=== PATIENT | female | born 1960 | race Caucasian/White ===

== ENCOUNTER → 2019-03-20 17:30 | Outpatient (BNVA) | payer BC, SELFPAY | PROVIDERS: Family Provider Nurse Practitioner; PCP Nurse Practitioner; Visit Provider Nurse Practitioner Family | DX: R50.9 Fever, unspecified (principal); S81.801A Unspecified open wound, right lower leg, initial encounter; X58.XXXA Exposure to other specified factors, initial encounter; L03.115 Cellulitis of right lower limb; R14.0 Abdominal distension (gaseous); R19.7 Diarrhea, unspecified | CPT/HCPCS: 80053; 81003; 85025; 87070; 87077; 87186; 87205 ==

== ENCOUNTER → 2019-06-12 08:46 | Outpatient (BNVA) | payer BC, SELFPAY | PROVIDERS: Family Provider Nurse Practitioner; PCP Nurse Practitioner; Visit Provider Internal Medicine Rheumatology | DX: Z51.81 Encounter for therapeutic drug level monitoring (principal); Z79.52 Long term (current) use of systemic steroids; Z79.899 Other long term (current) drug therapy; M32.9 Systemic lupus erythematosus, unspecified; M19.90 Unspecified osteoarthritis, unspecified site | CPT/HCPCS: 85025 ==

== ENCOUNTER → 2019-06-12 10:29 | Outpatient (BNVA) | payer BC, SELFPAY | PROVIDERS: Family Provider Nurse Practitioner; PCP Nurse Practitioner; Visit Provider Internal Medicine Rheumatology | DX: M32.9 Systemic lupus erythematosus, unspecified (principal); Z79.899 Other long term (current) drug therapy; Z11.1 Encounter for screening for respiratory tuberculosis; Z79.52 Long term (current) use of systemic steroids; M19.90 Unspecified osteoarthritis, unspecified site | CPT/HCPCS: 36415; 80076; 82565; 82575; 84156; 85651; 86140; 86160; 86480 ==

== ENCOUNTER → 2019-09-25 10:09 | Outpatient (BNVA) | payer BC, SELFPAY | PROVIDERS: Family Provider Nurse Practitioner; PCP Nurse Practitioner; Visit Provider Internal Medicine | DX: M32.9 Systemic lupus erythematosus, unspecified (principal); F17.210 Nicotine dependence, cigarettes, uncomplicated; Z79.52 Long term (current) use of systemic steroids | CPT/HCPCS: 36415; 80053; 81003; 81401; 82550; 82955; 85025; 85651; 86140; 99213 ==

== ENCOUNTER → 2019-10-06 11:00 | Outpatient (BNVA) | payer BC, SELFPAY | PROVIDERS: Family Provider Nurse Practitioner; PCP Nurse Practitioner; Visit Provider Nurse Practitioner Family | DX: L03.115 Cellulitis of right lower limb (principal); I10 Essential (primary) hypertension; S60.512A Abrasion of left hand, initial encounter; I49.8 Other specified cardiac arrhythmias | CPT/HCPCS: 80053; 80061; 83735; 84443 ==

== ENCOUNTER → 2019-11-20 09:04 | Outpatient (BNVA) | payer BC, SELFPAY | PROVIDERS: Family Provider Nurse Practitioner; PCP Nurse Practitioner; Visit Provider Internal Medicine Rheumatology | DX: Z79.899 Other long term (current) drug therapy (principal); M60.9 Myositis, unspecified | CPT/HCPCS: 36415; 80053; 84100; 86704; 86803; 87340 ==

== ENCOUNTER 2020-01-12 09:12 | Outpatient (CLI) | payer BC, SELFPAY ==
--- NOTE | 2020-01-12 09:30 | US_ITS ---
WS: [id number] ABDOMINAL ULTRASOUND LIMITED REASON FOR VISIT: RUQ , abnormal lfts TECHNIQUE: Grayscale and Doppler ultrasound examination of the abdomen. FINDINGS: Pancreas: No pancreatic ductal dilatation. No calcifications or mass. Abdominal aorta and IVC: The abdominal aorta is normal caliber with no aneurysmal dilatation. The IVC is normal caliber without compression. Liver: Liver measures 12.7 cm in length. No focal lesion identified. There are some ill-defined areas with mildly increased echogenicity within the liver these findings suggest fatty infiltration of the liver. Gallbladder: Gallbladder wall thickness measures 0.1 mm. No gallbladder calculi and normal common maggie e duct. Right kidney: Right kidney measures 9.9 cm x 4.2 cm x 4.1 cm. No mass, hydronephrosis, or calculus. No free fluid. US/US abdomen limited [id number] IMPRESSION: Possible fatty infiltration of the liver. No other significant abnormality.
[2020-01-12 10:14] LABS: Basophils % 0.4 %; Eosinophils % 0.4 %; Hematocrit 46.2 % (37.0-47.0); Hemoglobin 15.1 g/dL (11.5-15.3); Lymphocytes # 2.5 10^3/uL (0.8-4.8); Lymphocytes % 25.8 %; Mean Corpuscular HGB Conc 32.7 g/dL (30.0-36.0); Mean Corpuscular Hemoglobin 35.1 pg (28.0-34.0); Mean Corpuscular Volume 107.4 fL (81-99); Mean Platelet Volume 8.8 fL (7.4-10.4); Monocytes # 0.7 10^3/uL (0.2-0.9); Monocytes % 6.7 %; Neutrophils # 6.46 10^3/uL (1.8-7.7); Neutrophils % 66.1 %; Nucleated Red Blood Cells % 0 %; Platelet Count 246 10^3/cmm (130-400); Red Cell Distribution Width 13.8 % (12.1-15.1); White Blood Count 9.8 10^3/uL (4.0-10.0)
[2020-01-12 10:34] LABS: Alanine Aminotransferase 23 U/L (0-33); Albumin Level 4.3 g/dL (3.5-5.2); Alkaline Phosphatase 111 IU/L (35-105); Anion Gap 13.9 (5-19); Aspartate Amino Transferase 30 U/L (0-32); Blood Urea Nitrogen 17 mg/dL (8-23); C Reactive Protein 1.9 mg/L (0.0-4.9); Carbon Dioxide 29 mmol/L (22-29); Chloride 101 mmol/L (98-107); Globulin 2.8 g/dL (1.3-4.6); Glomerular Filtration Rate 85.1 mL/min (90-130); Glucose 97 mg/dL (65-115); Osmolality Calculated 289 mOsm/kg (285-295); Potassium 4.9 mmol/L (3.5-5.1); Sodium 139 mmol/L (136-145); Total Bilirubin 0.4 mg/dL (0.15-1.2); Total Protein 7.1 g/dL (6.6-8.7)
[2020-01-12 11:00] LABS: Erythrocyte Sedimentation Rate 5 mm/hr (0-15)
== END 2020-01-12 09:13 | disposition home or self-care (01) ==
LOC: RAD 09:18
PROVIDERS: PCP Nurse Practitioner; Visit Provider Internal Medicine
DX: M60.9 Myositis, unspecified (principal); Z79.899 Other long term (current) drug therapy; R10.11 Right upper quadrant pain; K76.0 Fatty (change of) liver, not elsewhere classified
CPT/HCPCS: 36415; 76705; 80053; 85025; 85651; 86140

== ENCOUNTER → 2020-01-15 10:55 | Outpatient (BNVA) | payer BC, SELFPAY | PROVIDERS: Family Provider Nurse Practitioner; PCP Nurse Practitioner; Visit Provider Internal Medicine | DX: M32.9 Systemic lupus erythematosus, unspecified (principal); Z79.52 Long term (current) use of systemic steroids; M19.041 Primary osteoarthritis, right hand; M19.042 Primary osteoarthritis, left hand; F17.210 Nicotine dependence, cigarettes, uncomplicated; Z79.899 Other long term (current) drug therapy | CPT/HCPCS: 99213; 99214 ==

== ENCOUNTER → 2020-03-26 10:25 | Outpatient (BNVA) | payer BC, SELFPAY | PROVIDERS: Family Provider Nurse Practitioner; PCP Nurse Practitioner; Visit Provider Internal Medicine | DX: M06.9 Rheumatoid arthritis, unspecified (principal); M32.9 Systemic lupus erythematosus, unspecified; M19.041 Primary osteoarthritis, right hand; M19.042 Primary osteoarthritis, left hand; I10 Essential (primary) hypertension; F17.210 Nicotine dependence, cigarettes, uncomplicated | CPT/HCPCS: 36415; 80053; 81003; 82550; 84100; 85025; 86160; 99214 ==

== ENCOUNTER → 2020-06-26 14:52 | Outpatient (BNVA) | payer BC, SELFPAY | PROVIDERS: Family Provider Nurse Practitioner; PCP Nurse Practitioner; Visit Provider Internal Medicine | DX: M06.9 Rheumatoid arthritis, unspecified (principal); M32.9 Systemic lupus erythematosus, unspecified; Z79.52 Long term (current) use of systemic steroids; F17.210 Nicotine dependence, cigarettes, uncomplicated | CPT/HCPCS: 99213; 99214 ==

== ENCOUNTER → 2021-01-06 13:23 | Outpatient (BNVA) | payer MEDICARE, SELFPAY | PROVIDERS: Family Provider Nurse Practitioner; PCP Nurse Practitioner; Visit Provider Internal Medicine | DX: M06.9 Rheumatoid arthritis, unspecified (principal); M19.041 Primary osteoarthritis, right hand; M19.042 Primary osteoarthritis, left hand; R21 Rash and other nonspecific skin eruption; Z79.899 Other long term (current) drug therapy; F17.210 Nicotine dependence, cigarettes, uncomplicated; D89.9 Disorder involving the immune mechanism, unspecified; M62.82 Rhabdomyolysis; M25.50 Pain in unspecified joint; I10 Essential (primary) hypertension; Z79.52 Long term (current) use of systemic steroids; L40.9 Psoriasis, unspecified; I49.8 Other specified cardiac arrhythmias | CPT/HCPCS: 72040; 72202; 73080; 73120; 73620; 80053; 82550; 82728; 83540; 83735; 84100; 84443; 85025; 86140; 86160; 99214 ==

== ENCOUNTER 2021-01-06 15:03 | Outpatient (CLI) | payer MEDICARE, SELFPAY ==
--- NOTE | 2021-01-06 15:10 | XRR_ITS ---
PROCEDURE INFORMATION: Exam: XR Bilateral Sacroiliac Joints Exam date and time: 01/06/2021 3:10 PM Age: 60 years old Clinical indication: Condition or disease; Other: Psoriasis, unspecified; Additional info: L40.9 - psoriasis, unspecified TECHNIQUE: Imaging protocol: XR Bilateral XR of the sacroiliac joints. Views: 3 or more views. Total images: 3 COMPARISON: No relevant prior studies available. FINDINGS: Bones/joints: Mild irregularity noted along the iliac portion of the left SI joint is not confirmed on cone down views of the SI joints. No osseous erosions are detected on coned-down views. No acute fracture nor subluxation. No osseous erosion nor periosteal reaction. Soft tissues: Normal. Vasculature: Incidental phleboliths noted. XR/XR sacroiliac jts m 3V [id number] IMPRESSION: No acute osseous pathology. Radiation Dose CTDIVOL = (mGy): DLP = (mGy-cm)
--- NOTE | 2021-01-06 15:10 | XRR_ITS ---
PROCEDURE INFORMATION: Exam: XR Left Hand Exam date and time: 01/06/2021 3:10 PM Age: 60 years old Clinical indication: Condition or disease; Arthritis and other: Psoriasis; Osteoarthritis; Primary; Hand; Bilateral; Additional info: R21 - rash and other nonspecific skin eruption TECHNIQUE: Imaging protocol: XR Left hand. Views: 3 or more views. Total images: 2 COMPARISON: CR Hand 3 views, LEFT* [id number] 04/12/2018 12:35 PM FINDINGS: Bones/joints: Degenerative changes are seen in the 1st carpal metacarpal joint with joint space narrowing, mild sclerosis, and osteophyte formation. Mild osteophyte formation is present at the 1st metacarpal phalangeal joint. Osteophyte formation is seen at the interphalangeal joint of the thumb and 2nd through 5th distal interphalangeal joints. This is seen to a lesser extent along the medial aspect of the proximal interphalangeal joints of the 2nd through 4th digits. No acute fracture nor subluxation. No osseous erosion nor periosteal reaction. Soft tissues: Normal. XR/XR hand LT 2V [id number] IMPRESSION: Degenerative changes as described above but no acute pathology detected. Radiation Dose CTDIVOL = (mGy): DLP = (mGy-cm)
--- NOTE | 2021-01-06 15:10 | XRR_ITS ---
PROCEDURE INFORMATION: Exam: XR Left Foot Exam date and time: 01/06/2021 3:10 PM Age: 60 years old Clinical indication: Condition or disease; Other: Psoriasis; Additional info: M25.50 - pain in unspecified joint TECHNIQUE: Imaging protocol: XR Left foot. Views: 1 or 2 views. Total images: 2 COMPARISON: No relevant prior studies available. FINDINGS: Bones/joints: No acute fracture nor subluxation. No osseous erosion nor periosteal reaction. Soft tissues: Normal. XR/XR foot LT 2V [id number] IMPRESSION: No acute osseous pathology. Radiation Dose CTDIVOL = (mGy): DLP = (mGy-cm)
--- NOTE | 2021-01-06 15:10 | XRR_ITS ---
PROCEDURE INFORMATION: Exam: XR Cervical Spine Exam date and time: 01/06/2021 3:10 PM Age: 60 years old Clinical indication: Condition or disease; Other: Psoriasis; Additional info: R21 - rash and other nonspecific skin eruption TECHNIQUE: Imaging protocol: XR of the cervical spine. Views: 2 or 3 views. Total images: 3 COMPARISON: No relevant prior studies available. FINDINGS: Bones/joints: C2-C3 unilateral facet joint degenerative changes are present. C4-7 Degenerative disc disease with disc space narrowing and osteophyte formation. No acute fracture nor subluxation. No osseous erosion nor periosteal reaction. No evidence of dynamic instability with flexion and extension maneuvers. Soft tissues: Unremarkable. Other findings: Atlantodental articulation appears unremarkable. XR/XR cervical spine fl/ex [id number] IMPRESSION: 1. Atlantodental articulation appears unremarkable. 2. Degenerative changes as described above but no acute pathology detected. 3. No evidence of dynamic instability with flexion and extension maneuvers. Radiation Dose CTDIVOL = (mGy): DLP = (mGy-cm)
--- NOTE | 2021-01-06 15:10 | XRR_ITS ---
PROCEDURE INFORMATION: Exam: XR Right Foot Exam date and time: 01/06/2021 3:10 PM Age: 60 years old Clinical indication: Condition or disease; Other: Psoriasis; Additional info: M25.50 - pain in unspecified joint TECHNIQUE: Imaging protocol: XR Right foot. Views: 1 or 2 views. Total images: 2 COMPARISON: No relevant prior studies available. FINDINGS: Bones/joints: No acute fracture nor subluxation. No osseous erosion nor periosteal reaction. Soft tissues: Normal. XR/XR foot RT 2V [id number] IMPRESSION: No acute osseous pathology. Radiation Dose CTDIVOL = (mGy): DLP = (mGy-cm)
--- NOTE | 2021-01-06 15:10 | XRR_ITS ---
PROCEDURE INFORMATION: Exam: XR Left Elbow Exam date and time: 01/06/2021 3:10 PM Age: 60 years old Clinical indication: Condition or disease; Other: Psoriasis; Additional info: M19.041 - primary osteoarthritis, right hand TECHNIQUE: Imaging protocol: XR Left elbow. Views: 3 or more views. Total images: 3 COMPARISON: CR XR hand LT 2V [id number] 01/06/2021 3:23 PM FINDINGS: Bones/joints: Small enthesophyte projecting at triceps insertion site. Small enthesophyte projecting from the medial epicondyle. No acute fracture nor subluxation. No osseous erosion nor periosteal reaction. Soft tissues: Normal. XR/XR elbow LT min 3V* [id number] IMPRESSION: No acute osseous pathology. Radiation Dose CTDIVOL = (mGy): DLP = (mGy-cm)
--- NOTE | 2021-01-06 15:10 | XRR_ITS ---
PROCEDURE INFORMATION: Exam: XR Right Hand Exam date and time: 01/06/2021 3:10 PM Age: 60 years old Clinical indication: Condition or disease; Arthritis and other: Psoriasis; Osteoarthritis; Hand; Bilateral; Additional info: R21 - rash and other nonspecific skin eruption TECHNIQUE: Imaging protocol: XR Right hand. Views: 1 or 2 views. Total images: 2 COMPARISON: CR Hand 3 views, RIGHT* [id number] 04/12/2018 12:35 PM FINDINGS: Bones/joints: Deformity of the scaphoid suggests remote nonunion of proximal pole fracture. Narrowing of radiocarpal joint with mild marginal osteophyte unchanged. Degenerative changes at the lunate/capitate joint with joint space narrowing and sclerosis with mild dorsal tilting of lunate unchanged. Degenerative changes noted at the 1st metacarpal phalangeal joint unchanged. Mild asymmetrical narrowing of the 3rd metacarpal phalangeal joint unchanged. Minimal proximal interphalangeal joint narrowing and osteophyte formation of the 1st, 2nd, 3rd, and 4th digits. Minimal narrowing and osteophyte formation of the distal interphalangeal joint of the 2nd through 5th digits. Findings are unchanged from the prior exam. No osseous erosions detected. Soft tissues: Soft tissue swelling noted at the proximal interphalangeal joint and distal interphalangeal joint of the 2nd and 3rd digits. XR/XR hand RT 2V [id number] IMPRESSION: 1. Osteoarthritic changes of the hands unchanged from prior exam. 2. Remote ununited proximal pole right scaphoid fracture with associated dorsal intercalated segmental instability unchanged from prior exam. Radiation Dose CTDIVOL = (mGy): DLP = (mGy-cm)
[2021-01-06 17:24] LABS: Basophils # 0.1 10^3/uL (0.0-0.1); Basophils % 0.7 %; Eosinophils # 0.1 10^3/uL (0.0-0.8); Eosinophils % 0.7 %; Hematocrit 47.7 % (37.0-47.0); Hemoglobin 15.7 g/dL (11.5-15.3); Lymphocytes # 2.6 10^3/uL (0.8-4.8); Lymphocytes % 24.6 %; Mean Corpuscular HGB Conc 32.9 g/dL (30.0-36.0); Mean Corpuscular Volume 106.2 fl (81-99); Mean Platelet Volume 8.8 fL (7.4-10.4); Monocytes # 0.7 10^3/uL (0.2-0.9); Monocytes % 6.1 %; Neutrophils # 7.26 10^3/uL (1.8-7.7); Neutrophils % 67.7 %; Nucleated Red Blood Cells % 0 %; Platelet Count 260 10^3/cmm (130-400); Red Blood Count 4.49 10^6/uL (4.1-5.3); Red Cell Distribution Width 14.4 % (12.1-15.1); White Blood Count 10.7 10^3/uL (4.0-10.0)
[2021-01-06 18:25] LABS: Alanine Aminotransferase 18 U/L (0-33); Albumin Level 4.5 g/dL (3.5-5.2); Alkaline Phosphatase 108 IU/L (35-105); Anion Gap 15.5 (5-19); Aspartate Amino Transferase 24 U/L (0-32); Blood Urea Nitrogen 12 mg/dL (8-23); C Reactive Protein 0.5 mg/L (0.0-4.9); Calcium 9.7 mg/dL (8.5-10.5); Carbon Dioxide 28 mmol/L (22-29); Chloride 101 mmol/L (98-107); Creatine Phosphokinase 148 U/L (26-192); Ferritin 75 ng/mL (15-150); Globulin 3.1 g/dL (1.3-4.6); Glomerular Filtration Rate 63.4 mL/min (90-130); Glucose 122 mg/dL (65-115); Iron 134 ug/dL (37-145); Magnesium 1.9 mg/dL (1.7-2.3); Osmolality Calculated 291 mOsm/kg (285-295); Phosphorus 2.7 mg/dL (2.5-4.5); Potassium 4.5 mmol/L (3.5-5.1); Sodium 140 mmol/L (136-145); Thyroid Stimulating Hormone 0.71 uIU/mL (0.27-4.20); Total Bilirubin 0.5 mg/dL (0.15-1.2); Total Protein 7.6 g/dL (6.6-8.7)
[2021-01-06 22:20] LABS: Complement C3 119 mg/dL (90-180)
== END 2021-01-06 15:04 | disposition home or self-care (01) ==
LOC: RAD 15:07
PROVIDERS: PCP Nurse Practitioner; Visit Provider Internal Medicine
DX: D89.9 Disorder involving the immune mechanism, unspecified (principal); M06.9 Rheumatoid arthritis, unspecified; M19.041 Primary osteoarthritis, right hand; M19.042 Primary osteoarthritis, left hand; M62.82 Rhabdomyolysis; R21 Rash and other nonspecific skin eruption; M25.50 Pain in unspecified joint; I10 Essential (primary) hypertension; Z79.52 Long term (current) use of systemic steroids; L40.9 Psoriasis, unspecified; I49.8 Other specified cardiac arrhythmias
CPT/HCPCS: 72040; 72202; 73080; 73120; 73620; 80053; 82550; 82728; 83540; 83735; 84100; 84443; 85025; 86140; 86160

== ENCOUNTER → 2021-02-03 11:32 | Outpatient (BNVA) | payer MEDICARE, SELFPAY | PROVIDERS: PCP Nurse Practitioner; Visit Provider Internal Medicine | DX: M06.9 Rheumatoid arthritis, unspecified (principal); M54.2 Cervicalgia; M19.041 Primary osteoarthritis, right hand; M19.042 Primary osteoarthritis, left hand; Z79.899 Other long term (current) drug therapy; Z79.52 Long term (current) use of systemic steroids | CPT/HCPCS: 99214 ==

== ENCOUNTER → 2021-04-08 11:36 | Outpatient (BNVA) | payer MEDICARE, SELFPAY | PROVIDERS: PCP Nurse Practitioner Family; Visit Provider Nurse Practitioner Family | DX: E55.9 Vitamin D deficiency, unspecified (principal); I10 Essential (primary) hypertension; F17.210 Nicotine dependence, cigarettes, uncomplicated | CPT/HCPCS: 80053; 80061; 82306; 84443; 85025 ==

== ENCOUNTER → 2021-04-14 08:57 | Outpatient (BNVA) | payer MEDICARE, SELFPAY | PROVIDERS: PCP Nurse Practitioner Family; Visit Provider Internal Medicine | DX: M06.9 Rheumatoid arthritis, unspecified (principal); M32.9 Systemic lupus erythematosus, unspecified; Z79.52 Long term (current) use of systemic steroids; F17.210 Nicotine dependence, cigarettes, uncomplicated | CPT/HCPCS: 99214 ==

== ENCOUNTER → 2021-05-22 10:38 | Outpatient (BNVA) | payer MEDICARE, SELFPAY | PROVIDERS: PCP Nurse Practitioner Family; Visit Provider Internal Medicine Rheumatology | DX: M06.9 Rheumatoid arthritis, unspecified (principal); M32.9 Systemic lupus erythematosus, unspecified; E55.9 Vitamin D deficiency, unspecified | CPT/HCPCS: 80053; 81000; 82550; 85025; 85651; 86140; 86160 ==

== ENCOUNTER → 2021-05-29 00:01 | Outpatient (BNVA) | payer MEDICARE, SELFPAY | PROVIDERS: PCP Nurse Practitioner Family; Visit Provider Nurse Practitioner Family | DX: L02.419 Cutaneous abscess of limb, unspecified (principal); F17.210 Nicotine dependence, cigarettes, uncomplicated; Z68.1 Body mass index [BMI] 19.9 or less, adult | CPT/HCPCS: 87070; 87075; 87205 ==

== ENCOUNTER → 2021-06-11 08:56 | Outpatient (BNVA) | payer MEDICARE, SELFPAY | PROVIDERS: PCP Nurse Practitioner Family; Visit Provider Internal Medicine | DX: M06.9 Rheumatoid arthritis, unspecified (principal); M32.9 Systemic lupus erythematosus, unspecified; R21 Rash and other nonspecific skin eruption; Z79.899 Other long term (current) drug therapy; F17.210 Nicotine dependence, cigarettes, uncomplicated | CPT/HCPCS: 99214 ==

== ENCOUNTER → 2021-08-21 09:58 | Outpatient (BNVA) | payer MEDICARE, SELFPAY | PROVIDERS: PCP Nurse Practitioner Family; Visit Provider Internal Medicine | DX: M06.9 Rheumatoid arthritis, unspecified (principal); M32.9 Systemic lupus erythematosus, unspecified; M60.9 Myositis, unspecified; Z79.899 Other long term (current) drug therapy; E55.9 Vitamin D deficiency, unspecified | CPT/HCPCS: 80053; 81000; 82550; 85025; 85651; 86140; 86160 ==

== ENCOUNTER → 2021-09-17 08:42 | Outpatient (BNVA) | payer MEDICARE, SELFPAY | PROVIDERS: PCP Nurse Practitioner; Visit Provider Internal Medicine | DX: M06.9 Rheumatoid arthritis, unspecified (principal); M32.9 Systemic lupus erythematosus, unspecified | CPT/HCPCS: 99214 ==

== ENCOUNTER → 2021-10-14 13:21 | Outpatient (BNVA) | payer MEDICARE, SELFPAY | PROVIDERS: PCP Nurse Practitioner; Visit Provider Internal Medicine | DX: E55.9 Vitamin D deficiency, unspecified (principal); I10 Essential (primary) hypertension; Z79.52 Long term (current) use of systemic steroids; L30.9 Dermatitis, unspecified | CPT/HCPCS: 80053; 80061; 81000; 82306; 82550; 82607; 83721; 84443; 85025; 85651; 86036; 86140 ==

== ENCOUNTER → 2022-03-31 11:04 | Outpatient (BNVA) | payer MEDICARE, SELFPAY | PROVIDERS: PCP Nurse Practitioner; Visit Provider Internal Medicine | DX: M06.9 Rheumatoid arthritis, unspecified (principal); M19.041 Primary osteoarthritis, right hand; M19.042 Primary osteoarthritis, left hand; M32.9 Systemic lupus erythematosus, unspecified; R21 Rash and other nonspecific skin eruption | CPT/HCPCS: 80053; 81000; 82550; 85025; 85651; 86036; 86140 ==

== ENCOUNTER → 2022-04-02 11:18 | Outpatient (BNVA) | payer MEDICARE, SELFPAY | PROVIDERS: PCP Nurse Practitioner; Visit Provider Internal Medicine | DX: M06.349 Rheumatoid nodule, unspecified hand (principal); M06.9 Rheumatoid arthritis, unspecified; M62.82 Rhabdomyolysis; R21 Rash and other nonspecific skin eruption | CPT/HCPCS: 99214 ==

== ENCOUNTER → 2022-06-15 12:16 | Outpatient (BNVA) | payer MEDICARE, SELFPAY | PROVIDERS: PCP Nurse Practitioner; Visit Provider Internal Medicine | DX: M06.9 Rheumatoid arthritis, unspecified (principal); M32.9 Systemic lupus erythematosus, unspecified; R21 Rash and other nonspecific skin eruption; M54.2 Cervicalgia; M19.042 Primary osteoarthritis, left hand; M19.032 Primary osteoarthritis, left wrist; M19.031 Primary osteoarthritis, right wrist; Z79.52 Long term (current) use of systemic steroids | CPT/HCPCS: 72040; 73100; 73110; 73120; 99214 ==

== ENCOUNTER → 2022-08-27 11:40 | Outpatient (BNVA) | payer MEDICARE, SELFPAY | PROVIDERS: PCP Nurse Practitioner; Visit Provider Internal Medicine | DX: M32.9 Systemic lupus erythematosus, unspecified (principal) | CPT/HCPCS: 80053; 81003; 82550; 85025; 85651; 86140; 87077; 87086; 87184 ==

== ENCOUNTER → 2022-10-13 13:56 | Outpatient (BNVA) | payer MEDICARE, SELFPAY | PROVIDERS: PCP Nurse Practitioner; Visit Provider Dermatology | DX: I78.8 Other diseases of capillaries (principal) | CPT/HCPCS: 99214 ==

== ENCOUNTER → 2022-12-09 15:08 | Outpatient (BNVA) | payer MEDICARE, SELFPAY | PROVIDERS: PCP Nurse Practitioner; Visit Provider Internal Medicine | DX: E53.8 Deficiency of other specified B group vitamins (principal); M06.9 Rheumatoid arthritis, unspecified; M62.82 Rhabdomyolysis; R21 Rash and other nonspecific skin eruption; M54.2 Cervicalgia | CPT/HCPCS: 99214 ==

== ENCOUNTER → 2023-02-02 10:58 | Outpatient (BNVA) | payer MEDICARE, SELFPAY | PROVIDERS: PCP Nurse Practitioner; Visit Provider Anesthesiology Pain Medicine | DX: M54.12 Radiculopathy, cervical region (principal); M50.90 Cervical disc disorder, unspecified, unspecified cervical region; M54.50 Low back pain, unspecified | CPT/HCPCS: 99204 ==

== ENCOUNTER 2023-03-10 11:18 | Outpatient (CLI) | payer MEDICARE, SELFPAY ==
--- NOTE | 2023-03-10 11:00 | MR_ITS ---
WS: [id number] MRI CERVICAL SPINE NONCONTRAST TECHNIQUE: Sagittal T1, T2 and STIR imaging. Axial T2, gradient, and fiesta imaging. CLINICAL INFORMATION: M54.12 - Radiculopathy, cervical region COMPARISON: None. FINDINGS: Straightening of the normal cervical lordosis. Mild spondylitic changes. Cord signal is normal. Hyper trophic changes mid cervical spine. Small shallow disc protrusions C4-C6. C2-C3: Mild facet arthropathy. Spinal canal and foramen are patent. C3-C4: Disc osteophytic ridging. Moderate RIGHT bony foraminal narrowing. Mild facet arthropathy. C4-C5: Disc osteophyte complex with endplate ridging. Moderate facet arthropathy. Moderate bilateral bony foraminal narrowing. C5-C6: Disc osteophyte complex with endplate ridging. Moderate bilateral bony foraminal narrowing. Un covertebral joint hypertrophy. Moderate facet arthropathy. Tiny central protrusion. C6-C7: Disc osteophyte complex with endplate ridging. Moderate bilateral bony foraminal narrowing. Mo derate facet arthropathy. C7-T1: Mild RIGHT and no significant LEFT foraminal narrowing. Visualized brain stem structures: Normal. Prevertebral soft tissues: Normal. IMPRESSION: Some images degraded by motion. 1. Straightening of the normal cervical lordosis. Cord signal is normal. 2. Small disc protrusions in the mid cervical spine. No significant central canal stenosis. 3. Moderate multilevel bony foraminal narrowing worse at RIGHT C3-4, bilateral C4-5, bilateral C5-C6 and bilateral C6-7.
== END 2023-03-10 11:19 | disposition home or self-care (01) ==
LOC: RAD 11:19
PROVIDERS: PCP Nurse Practitioner; Visit Provider Anesthesiology Pain Medicine
DX: M54.12 Radiculopathy, cervical region (principal); M48.02 Spinal stenosis, cervical region
CPT/HCPCS: 72141

== ENCOUNTER → 2023-06-23 11:19 | Outpatient (BNVA) | payer MEDICARE, SELFPAY | PROVIDERS: PCP Nurse Practitioner; Visit Provider Anesthesiology Pain Medicine | DX: M54.12 Radiculopathy, cervical region (principal); M50.90 Cervical disc disorder, unspecified, unspecified cervical region; M48.02 Spinal stenosis, cervical region | CPT/HCPCS: 99214 ==

== ENCOUNTER 2024-02-04 12:51 | Emergency (ER) | payer MEDICARE, SELFPAY ==
[2024-02-04 13:08] VITALS: BP 114/78; PULSE 100; RESP 18; TEMP 36.3; O2SAT 91; BMI 19.5
--- NOTE | 2024-02-04 13:40 | XRR_ITS ---
PROCEDURE INFORMATION: Exam: XR Chest Exam date and time: 02/04/2024 1:44 PM Age: 63 years old Clinical indication: Shortness of breath; Patient HX: Dyspnea; SOB TECHNIQUE: Imaging protocol: Radiologic exam of the chest. Views: 1 view. COMPARISON: MR cervical spin wo con* [id number] 03/10/2023 11:49 AM FINDINGS: Lungs: Both lungs demonstrate diffuse interstitial coarsening. Platelike atelectasis involves both lower lung pena.Luz B lines are noted in both lung bases. Pleural spaces: Unremarkable. No pleural effusion. No pneumothorax. Heart/Mediastinum: Moderate cardiomegaly is noted. Bones/joints: Unremarkable. XR/XR chest 1V portable [id number] IMPRESSION: Mild CHF
[2024-02-04 13:57] LABS: Basophils # 0.1 10^3/uL (0.0-0.1); Basophils % 0.5 %; Eosinophils % 0.4 %; Hematocrit 49.7 % (36-47); Lymphocytes % 21.4 %; Mean Corpuscular HGB Conc 30.6 g/dL (30-55); Mean Corpuscular Volume 98.2 fl (85-98); Mean Platelet Volume 9.2 fL (7.4-10.4); Monocytes # 0.5 10^3/uL (0.2-0.9); Monocytes % 5.1 %; Neutrophils # 6.79 10^3/uL (1.8-7.7); Neutrophils % 72.4 %; Nucleated Red Blood Cells % 0 %; Platelet Count 219 10^3/cmm (157-399); Red Blood Count 5.06 10^6/uL (3.85-5.65); Red Cell Distribution Width 15.5 % (12.1-15.1); White Blood Count 9.39 10^3/uL (3.29-11.43)
[2024-02-04] MEDS: dexamethasone 10 mg/mL INJ IM (13:57)
--- NOTE | 2024-02-04 13:58 | ED_ITS ---
HPI - SOB/Dyspnea 2 General: Chief Complaint: Shortness of Breath/Dyspnea Stated Complaint: SOB Time Seen by Provider: 02/04/24 13:37 History of Present Illness: HPI Narrative: Patient presents to the ER with complaints of shortness of breath worse over the last week. Patient does have COPD and uses albuterol nebs and inhaler multiple times throughout the day. She said it used to work very good but now is only working for 5 or 10 minutes at a time. Patient is says she has had chills but not had a fever. She has a chronic coughPatient she does have a history of lupus and is on hydroxychloroquine. Patient is not had any sick contacts. Patient's O2 sat is 91% on room air. Related Data Home Medications Medication Instructions Recorded Confirmed aspirin 81 mg tablet,delayed 81 mg PO DAILY 02/04/24 02/04/24 release ibuprofen 200 mg tablet 200 mg PO Q6H PRN Pain 02/04/24 02/04/24 Previous Rx's Medication Instructions Recorded furosemide 40 mg tablet (Lasix) 40 mg PO DAILY #5 tabs 02/04/24 Allergies Allergy/AdvReac Type Severity Reaction Status Date / Time No Known Allergies Allergy Verified 02/04/24 13:14 Review of Systems 2 General: Reports: 10 or more systems reviewed and unremarkable except in HPI and below PFSH ED 2 PFSH: Medical History Suppression of immune system subtherapeutic Macrocytosis Immunization counseling Muscle weakness (generalized) Gastro-esophageal reflux disease without esophagitis Vitamin D deficiency High risk medication use Osteoarthritis Generalized anxiety disorder Chronic pruritus Colon cancer screening declined Systemic lupus erythematosus, unspecified 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, bilateral 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 Immunosuppression Systemic lupus erythematosus (SLE) in adult Surgical History History of ectopic Family History Mother , age 32 CAD (coronary artery disease) Family/Other Cancer Social History Smoking and tobacco/nicotine status: current every day tobacco/nicotine user cigarettes Packs smoked per day: 1 Years cigarettes smoked: 50 Second hand smoke exposure: No Alcohol intake: current Alcohol intake frequency: few times a week Substance/Drug Use: unknown Adopted: No Caregiver/support person: No Lives independently: Yes Household members: spouse Housing: House Marital status: Number of children: 3 Number of grandchildren: 7 service: No Current occupational status: disabled Previous occupational history: [employer] Do you think of yourself as: Straight/Heterosexual Current gender identity: Female Physical Exam 2 Const: COMMON NORMALS: no acute distress, average body habitus, patient oriented x3, no limitations, healthy appearing, alert and well nourished HENMT: COMMON NORMALS: normocephalic, atraumatic, hearing grossly normal bilaterally, external ears normal, Normal external nose present and moist oral mucous membranes HEAD & SCALP: normocephalic and atraumatic NOSE: Normal external nose present EXTERNAL EAR: Yes external ears normal Neck/C-Spine: COMMON NORMALS: no JVD Chest: COMMONS NORMALS: normal inspection of the chest and normal palpation of entire chest wall Resp: COMMON NORMALS: normal respiratory effort, No retractions, No use of accessory muscles and clear to auscultation bilaterally AUSCULTATION: clear to auscultation bilaterally Cardio: COMMON NORMALS: no JVD, regular rate, regular rhythm, S1 normal heart sound present, S2 normal heart sound present, No gallops present (Cardio), No clicks present (Cardio), No murmurs present (Cardio) and No rub (Cardio) R ATE: regular rate RHYTHM: regular rhythm HEART SOUNDS: S1 normal heart sound present and S2 normal heart sound present GI: COMMON NORMALS: Normal to inspection, nondistended, normoactive bowel sounds present, Soft to palpation, non-tender, No hepatosplenomegaly present and no masses PALPATION: Yes Soft to palpation and Yes No hepatosplenomegaly present Neuro: COMMON NORMALS: patient oriented x3 SENSORIUM/ORIENTATION: Yes alert Course 2 Vital Signs: Vital signs: Vital Signs Temperature 97.4 F L 02/04/24 13:08 Pulse Rate 103 H 02/04/24 14:06 Respiratory Rate 18 02/04/24 14:01 Blood Pressure 138/89 02/04/24 14:01 Pulse Oximetry 94 02/04/24 14:01 Oxygen Delivery Me thod Room Air 02/04/24 14:01 MDM - SOB/Dyspnea Medical Decision Making During patient stay her O2 saturation to about 92% on room air. Patient was given 1 DuoNeb treatment and 40 of p.o. Lasix. Patient lab work was reviewed her BNP is elevated at approximately 7300. Patient states she was feeling much better. Patient be discharged on Lasix for next 5 days. Medical Records I reviewed the patient's medical records. Lab Data I reviewed the patient's lab results. 02/04/24 13:52 02/04/24 13:52 Labs/Radiology: Radiology Impressions Chest X-Ray 02/04/24 13:40 IMPRESSION: Mild CHF Laboratory Results WBC 9.39 10^3/uL (3.29-11.43) 02/04/24 13:52 RBC 5.06 10^6/uL (3.85-5.65) 02/04/24 13:52 Hgb 15.20 g/dL (11.27-16.99) 02/04/24 13:52 Hct 49.7 % (36-47) H 02/04/24 13:52 MCV 98.2 fl (85-98) H 02/04/24 13:52 MCH 30.0 pg (27-33) 02/04/24 13:52 MCHC 30.6 g/dL (30-55) 02/04/24 13:52 RDW 15.5 % (12.1-15.1) H 02/04/24 13:52 Plt Count 219 10^3/cmm (157-399) 02/04/24 13:52 MPV 9.2 fL (7.4-10.4) 02/04/24 13:52 Neut % (Auto) 72.4 % 02/04/24 13:52 Lymph % (Auto) 21.4 % 02/04/24 13:52 [place] % (Auto) 5.1 % 02/04/24 13:52 Eos % (Auto) 0.4 % 02/04/24 13:52 Baso % (Auto) 0.5 % 02/04/24 13:52 Neut # (Auto) 6.79 10^3/uL (1.8-7.7) 02/04/24 13:52 Lymph # (Auto) 2.0 10^3/uL (0.8-4.8) 02/04/24 13:52 [place] # (Auto) 0.5 10^3/uL (0.2-0.9) 02/04/24 13:52 Eos # (Auto) 0.0 10^3/uL (0.0-0.8) 02/04/24 13:52 Baso # (Auto) 0.1 10^3/uL (0.0-0.1) 02/04/24 13:52 Nucleated RBC % (auto) 0 % 02/04/24 13:52 Nucleated RBCs # 0.0 /100WBC 02/04/24 13:52 Sodium 138 mmol/L (136-145) 02/04/24 13:52 Potassium 4.7 mmol/L (3.5-5.1) 02/04/24 13:52 Chloride 99 mmol/L (98-107) 02/04/24 13:52 Carbon Dioxide 25 mmol/L (22-29) 02/04/24 13:52 Anion Gap 18.7 (5-19) 02/04/24 13:52 BUN 13 mg/dL (8-23) 02/04/24 13:52 Creatinine 0.8 mg/dL (0.5-0.9) 02/04/24 13:52 GFR Calculation 72.0 mL/min (90-130) L 02/04/24 13:52 Glucose 142 mg/dL (65-115) H 02/04/24 13:52 Calculated Osmolality 289 mOsm/kg (285-295) 02/04/24 13:52 Calcium 9.1 mg/dL (8.5-10.5) 02/04/24 13:52 Total Bilirubin 0.9 mg/dL (0.15-1.2) 02/04/24 13:52 AST 25 U/L (0-32) 02/04/24 13:52 ALT 17 U/L (0-33) 02/04/24 13:52 Alkaline Phosphatase 123 U/L (35-105) H 02/04/24 13:52 NT-Pro-B Natriuret Pep 7337 pg/mL (0-125) H 02/04/24 13:52 Total Protein 6.9 g/dL (6.6-8.7) 02/04/24 13:52 Albumin 3.8 g/dL (3.5-5.2) 02/04/24 13:52 Globulin 3.1 g/dL (1.3-4.6) 02/04/24 13:52 Coronavirus (PCR) Negative (Negative) 02/04/24 13:59 Influenza A (PCR) Negative (Negative) 02/04/24 13:59 Influenza Type B (PCR) Negative (Negative) 02/04/24 13:59 RSV (PCR) Negative (Negative) 02/04/24 13:59 All radiology interpretation(s) finalized by discharge Discharge Plan Discharge Patient Disposition: Home Clinical Impression: Acute dyspnea, Edema Condition: Stable Prescriptions: New furosemide [Lasix] 40 mg tablet 40 mg PO DAILY Qty: 5 0RF No Action aspirin [Aspir-81] 81 mg Tablet,Delayed Release (Dr/Ec) 81 mg PO DAILY ibuprofen 200 mg Tablet 200 mg PO Q6H PRN (Reason: Pain) Discharge Orders: Discharge ED (Routine); Ordered 02/04/24 Ordered By: Herman Weaver Referrals: Albino Mcdaniel, SENIOR PROGRAMMER-C [Primary Care Provider] - 1 week Patient Instructions: Dyspnea (ED), Pulmonary Edema (ED) Activity Restrictions/Additional Instructions: Your evaluation ER showed you have a little bit too much fluid in your lungs. You will prescribe Lasix which is a diuretic to help you get rid of this fluid. Please take it as directed for the next 5 days. Please follow-up with family proximal physician in approximately 7 days for further evaluation. Coding Level of Care Code ED Electronic Data Interchange Specialist for Tito Lam
[2024-02-04 14:01] VITALS: BP 138/89; PULSE 101; PULSE 98; RESP 18; O2SAT 92; O2SAT 94
[2024-02-04] MEDS: ipratropium-albuterol 3 mL Neb INHALATION (14:01)
[2024-02-04 14:06] VITALS: PULSE 103
--- NOTE | 2024-02-04 14:15 | PC.PHAR ---
patient states she isnt current with any medications, does take otc aspirin and ibuprofen as needed.. patients primary doctor left awhile back and so did her pain management doc so since then shes tried to find new pcp to write her normal meds
[2024-02-04 14:25] LABS: Alanine Aminotransferase 17 U/L (0-33); Albumin Level 3.8 g/dL (3.5-5.2); Alkaline Phosphatase 123 U/L (35-105); Anion Gap 18.7 (5-19); Aspartate Amino Transferase 25 U/L (0-32); Blood Urea Nitrogen 13 mg/dL (8-23); Calcium 9.1 mg/dL (8.5-10.5); Carbon Dioxide 25 mmol/L (22-29); Chloride 99 mmol/L (98-107); Creatinine Clr Calc Pharmacy 61.7476; Globulin 3.1 g/dL (1.3-4.6); Glucose 142 mg/dL (65-115); NT Pro B Type Natriuretic Pept 7337 pg/mL (0-125); Osmolality Calculated 289 mOsm/kg (285-295); Potassium 4.7 mmol/L (3.5-5.1); Sodium 138 mmol/L (136-145); Total Bilirubin 0.9 mg/dL (0.15-1.2); Total Protein 6.9 g/dL (6.6-8.7)
[2024-02-04 14:49] LABS: Covid PCR NEGATIVE (Negative); Influenza A NEGATIVE (Negative); Influenza B NEGATIVE (Negative); Respiratory Syncytial Virus Ce NEGATIVE (Negative)
[2024-02-04] MEDS: FUROsemide 40 mg Tablet PO (14:53)
[2024-02-04 15:17] VITALS: BP 147/83; PULSE 89; O2SAT 93
[2024-02-04 15:18] VITALS: BP 147/80; PULSE 89; O2SAT 93
== END 2024-02-04 15:27 | disposition home or self-care (01) ==
PROVIDERS: Emergency Provider Emergency Medicine; PCP Nurse Practitioner
DX: R06.09 Other forms of dyspnea (principal); R60.9 Edema, unspecified; Z11.52 Encounter for screening for COVID-19; Z79.82 Long term (current) use of aspirin; F17.210 Nicotine dependence, cigarettes, uncomplicated; J44.9 Chronic obstructive pulmonary disease, unspecified
CPT/HCPCS: 0241U; 71045; 80053; 83880; 85025; 94640; 96372; 99284; J1100

== ENCOUNTER → 2024-02-10 14:44 | Outpatient (BNVA) | payer MEDICARE, SELFPAY | PROVIDERS: PCP Nurse Practitioner; Visit Provider Nurse Practitioner | DX: E55.9 Vitamin D deficiency, unspecified (principal); I50.9 Heart failure, unspecified; R73.9 Hyperglycemia, unspecified | CPT/HCPCS: 80048; 82306; 83036; 83880; 84443 ==

== ENCOUNTER 2024-04-01 15:40 | Emergency (ER) | payer MEDICARE, SELFPAY ==
[2024-04-01] VITALS (8 sets, daily range): BP systolic 96–143; BP diastolic 59–97; PULSE 93–109; RESP 16–101; TEMP 36.4; O2SAT 90–97; BMI 18.0
--- NOTE | 2024-04-01 15:56 | ECG_ITS ---
[facility] [place] [facility] Date: 2024-04[facility]01 Pat Name: Alivia Tomlinson Department: Room: Gender: Female Director Nurses' Registry: : 1960 Requested By: Giovanni Goncavles Order Number: [id number] Caroline MD: Bubba Bueno M.D. Measurements Intervals [place] Rate: 96 P: 88 WA: 181 QRS: 36 QRSD: 123 T: 180 QT: 385 QTc: 488 Interpretive Statements SINUS RHYTHM WITH FREQUENT SUPRAVENTRICULAR PREMATURE COMPLEXES POSSIBLE RIGHT VENTRICULAR CONDUCTION DELAY [RSR (QR) IN V1/V2] ANTEROSEPTAL MYOCARDIAL INFARCTION , OF INDETERMINATE AGE [40+ ms Q WAVE IN V1-V4] ST DEVIATION AND MODERATE T-WAVE ABNORMALITY, CONSIDER LATERAL ISCHEMIA [-0.1+ mV T-WAVE IN I/aVL/V5/V6] No previous ECG available for comparison Electronically Signed On 04-01-2024 22:56:42 INTELLECTUAL PROPERTY COUNSEL by Bubba Bueno M.D. [email or web address]
--- NOTE | 2024-04-01 16:30 | XRR_ITS ---
PROCEDURE INFORMATION: Exam: XR Chest Exam date and time: 04/01/2024 4:39 PM Age: 63 years old Clinical indication: Shortness of breath; Patient HX: SOB TECHNIQUE: Imaging protocol: Radiologic exam of the chest. Views: 1 view. COMPARISON: CR XR chest 1V portable [id number] 02/04/2024 1:44 PM FINDINGS: Lungs: Emphysematous change. No focal consolidation. Mild interstitial prominence. Pleural spaces: Focal nodularity of the right costophrenic angle is likely a nipple shadow. Heart/Mediastinum: Cardiomegaly. Vasculature: Tortuous calcified aorta. Bones/joints: Degenerative change of the spine and shoulders. XR/XR chest 1V portable [id number] IMPRESSION: No acute cardiopulmonary findings.
--- NOTE | 2024-04-01 16:40 | ED_ITS ---
HPI - SOB/Dyspnea 2 General: Chief Complaint: Shortness of Breath/Dyspnea Stated Complaint: SOB Time Seen by Provider: 04/01/24 16:29 Source: patient History of Present Illness: HPI Narrative: Patient is a 63-year-old female with a longtime history of smoking who reports having also history of congestive heart failure and presents to the ER with complaints of increasing shortness of breath and cough for the last several weeks. Her states she seems somewhat confused yesterday and has had subjective fevers. She does have an albuterol inhaler at home however has ran out of it. Associated symptoms: Deny abdominal pain, chest pain, diaphoresis, fever(s), nausea or vomiting Related Data Home Medications Medication Instructions Recorded Confirmed aspirin 81 mg tablet,delayed 81 mg PO DAILY 02/04/24 02/22/24 release ibuprofen 200 mg tablet 200 mg PO Q6H PRN Pain 02/04/24 02/10/24 Previous Rx's Medication Instructions Recorded furosemide 20 mg tablet (Lasix) 20 mg PO QAM #30 tabs 02/10/24 potassium chloride 8 mEq 8 meq PO DAILY #30 caps 02/10/24 capsule,extended release ergocalciferol (vitamin D2) 1,250 1,250 mcg PO .weekly #4 caps 02/13/24 mcg (50,000 unit) capsule oseltamivir 75 mg capsule (Tamiflu) 75 mg PO BID 5 days #10 caps 04/01/24 prednisone 20 mg tablet 20 mg PO BID 5 days #10 tabs 04/01/24 Allergies Allergy/AdvReac Type Severity Reaction Status Date / Time No Known Allergies Allergy Verified 04/01/24 15:55 Review of Systems 2 Const: Denies: fever(s), chills or diaphoresis Card: Denies: chest pain Resp: Reports: dyspnea, non-productive cough and wheezing GI: Denies: abdominal pain, nausea or vomiting Skin/Breast: Denies: rash Neuro: Denies: headache(s) PFSH ED 2 PFSH: Medical History Suppression of immune system subtherapeutic Macrocytosis Immunization counseling Muscle weakness (generalized) Gastro-esophageal reflux disease without esophagitis Vitamin D deficiency High risk medication use Osteoarthritis Generalized anxiety disorder Chronic pruritus Colon cancer screening declined Systemic lupus erythematosus, unspecified 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, bilateral 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 Immunosuppression Systemic lupus erythematosus (SLE) in adult Surgical History History of ectopic Family History Mother , age 32 CAD (coronary artery disease) Family/Other Cancer Social History Smoking and tobacco/nicotine status: current every day tobacco/nicotine user cigarettes Packs smoked per day: 1 Years cigarettes smoked: 50 Second hand smoke exposure: No Alcohol intake: current Alcohol intake frequency: few times a week Substance/Drug Use: unknown Adopted: No Caregiver/support person: No Lives independently: Yes Household members: spouse Housing: House Marital status: Number of children: 3 Number of grandchildren: 7 service: No Current occupational status: disabled Previous occupational history: [employer] Do you think of yourself as: Straight/Heterosexual Current gender identity: Female Physical Exam 2 Const: COMMON NORMALS: no acute distress, average body habitus, alert and well nourished GENERAL APPEARANCE: cooperative ORIENTATION/CONSCIOUSNESS: Yes awake HENMT: COMMON NORMALS: normocephalic and atraumatic HEAD & SCALP: n ormocephalic and atraumatic Eye: COMMON NORMALS: conjunctivae normal CONJUNCTIVA: Yes conjunctivae normal Neck/C-Spine: GENERAL: Yes normal visual inspection Resp: OTHER: Patient has mild tachypnea noted with diffuse wheezes bilaterally Cardio: COMMON NORMALS: regular rhythm and Peripheral pulses 2+ throughout RATE: tachycardic RHYTHM: regular rhythm PERIPHERAL PULSES: Peripheral pulses 2+ throughout GI: COMMON NORMALS: Soft to palpation and non-tender PALPATION: Yes Soft to palpation Extremity: COMMON NORMALS: full ROM and no pedal edema NARRATIVE EXTREMITY EXAM: No pedal edema Neuro: COMMON NORMALS: no focal motor deficits SENSORIUM/ORIENTATION: Yes alert Skin: COMMON NORMALS: no rashes or lesions noted GENERAL SKIN EXAM: no rashes or lesions noted Course 2 Vital Signs: Vital signs: Vital Signs Temperature 97.5 F L 04/01/24 15:50 Pulse Rate 109 H 04/01/24 18:24 Respiratory Rate 16 04/01/24 17:17 Blood Pressure 131/84 04/01/24 18:24 Pulse Oximetry 93 04/01/24 18:24 Oxygen Delivery Me thod Room Air 04/01/24 17:17 MDM - SOB/Dyspnea Medical Decision Making Patient is a 63-year-old female with long history of smoking as well as a history of congestive heart failure who presents with increasing cough and shortness of breath. She reports some fevers and the states she seems somewhat confused yesterday. She had diffuse wheezes bilaterally with coarse breath sounds on exam. Vital signs were stable. She is satting around 95 to 97% on room air. Chest x-ray does not show any acute infiltrate or pneumonia. CBC is unremarkable. Chemistry panel is unremarkable. Troponin is indeterminate and she does have an elevated BNP. Her influenza test was positive. She was given 3 DuoNebs here and a dose of Solu-Medrol. On reassessment she states she is feeling much better and diagnosis were discussed with the patient. Risk and benefits of admission were discussed and patient declines admission and prefers discharge home. I will prescribe her Tamiflu as well as short course of steroids as it does appear she is likely having some COPD exacerbation from her influenza illness. Patient was given strict return precautions. Lab Data I reviewed the patient's lab results. 04/01/24 16:54 04/01/24 16:54 Labs/Radiology: Radiology Impressions Chest X-Ray 04/01/24 16:30 IMPRESSION: No acute cardiopulmonary findings. Laboratory Results WBC 6.28 10^3/uL (3.29-11.43) 04/01/24 16:54 RBC 5.02 10^6/uL (3.85-5.65) 04/01/24 16:54 Hgb 14.30 g/dL (11.27-16.99) 04/01/24 16:54 Hct 45.6 % (36-47) 04/01/24 16:54 MCV 90.8 fl (85-98) 04/01/24 16:54 MCH 28.5 pg (27-33) 04/01/24 16:54 MCHC 31.4 g/dL (30-55) 04/01/24 16:54 RDW 16.2 % (12.1-15.1) H 04/01/24 16:54 Plt Count 161 10^3/cmm (157-399) 04/01/24 16:54 MPV 9.7 fL (7.4-10.4) 04/01/24 16:54 Neut % (Auto) 79.7 % 04/01/24 16:54 Lymph % (Auto) 11.5 % 04/01/24 16:54 [place] % (Auto) 7.8 % 04/01/24 16:54 Eos % (Auto) 0.2 % 04/01/24 16:54 Baso % (Auto) 0.5 % 04/01/24 16:54 Neut # (Auto) 5.01 10^3/uL (1.8-7.7) 04/01/24 16:54 Lymph # (Auto) 0.7 10^3/uL (0.8-4.8) L 04/01/24 16:54 [place] # (Auto) 0.5 10^3/uL (0.2-0.9) 04/01/24 16:54 Eos # (Auto) 0.0 10^3/uL (0.0-0.8) 04/01/24 16:54 Baso # (Auto) 0.0 10^3/uL (0.0-0.1) 04/01/24 16:54 Nucleated RBC % (auto) 0 % 04/01/24 16:54 Nucleated RBCs # 0.0 /100WBC 04/01/24 16:54 Sodium 135 mmol/L (136-145) L 04/01/24 16:54 Potassium 4.1 mmol/L (3.5-5.1) 04/01/24 16:54 Chloride 96 mmol/L (98-107) L 04/01/24 16:54 Carbon Dioxide 26 mmol/L (22-29) 04/01/24 16:54 Anion Gap 17.1 (5-19) 04/01/24 16:54 BUN 15 mg/dL (8-23) 04/01/24 16:54 Creatinine 0.8 mg/dL (0.5-0.9) 04/01/24 16:54 GFR Calculation 72.0 mL/min (90-130) L 04/01/24 16:54 Glucose 84 mg/dL (65-115) 04/01/24 16:54 Calculated Osmolality 280 mOsm/kg (285-295) L 04/01/24 16:54 Lactic Acid 2.4 mmol/L (0.5-2.2) H 04/01/24 16:54 Calcium 9.2 mg/dL (8.5-10.5) 04/01/24 16:54 Total Bilirubin 1.3 mg/dL (0.15-1.2) H 04/01/24 16:54 AST 30 U/L (0-32) 04/01/24 16:54 ALT 16 U/L (0-33) 04/01/24 16:54 Alkaline Phosphatase 119 U/L (35-105) H 04/01/24 16:54 Troponin T Baseline 73 ng/L (0-10) H 04/01/24 16:54 Delta Troponin T 1.50 ABS# (0-10) 04/01/24 18:56 NT-Pro-B Natriuret Pep 89444 pg/mL (0-125) H 04/01/24 16:54 Total Protein 6.8 g/dL (6.6-8.7) 04/01/24 16:54 Albumin 3.8 g/dL (3.5-5.2) 04/01/24 16:54 Globulin 3.0 g/dL (1.3-4.6) 04/01/24 16:54 Urine Color Yellow (Yellow) 04/01/24 16:45 Urine Appearance Clear (CLEAR) 04/01/24 16:45 Urine pH 5.0 (5-7) 04/01/24 16:45 Ur Specific [place] 1.005 (1.005-1.030) 04/01/24 16:45 Urine Protein Negative (Negative) 04/01/24 16:45 Urine Glucose (UA) Negative (Normal) 04/01/24 16:45 Urine Ketones Negative (Negative) 04/01/24 16:45 Urine Blood Negative (Negative) 04/01/24 16:45 Urine Nitrate Negative (Negative) 04/01/24 16:45 Urine Bilirubin Negative (Negative) 04/01/24 16:45 Urine Urobilinogen 0.2 mg/dL (Negative) 04/01/24 16:45 Ur Leukocyte Esterase Negative (Negative) 04/01/24 16:45 Urine RBC 0-2 /hpf (0-2) 04/01/24 16:45 Urine WBC 0-5 /hpf (0-5) 04/01/24 16:45 Ur Squamous Epith Cells 0-5 /hpf (0-5) 04/01/24 16:45 Amorphous Sediment Not Reportable 04/01/24 16:45 Urine Bacteria None seen /hpf (NONE) 04/01/24 16:45 Hyaline Casts 1.21 /lpf 04/01/24 16:45 Coronavirus (PCR) Negative (Negative) 04/01/24 18:22 Influenza A (PCR) Positive (Negative) 04/01/24 18:22 Influenza Type B (PCR) Negative (Negative) 04/01/24 18:22 RSV (PCR) Negative (Negative) 04/01/24 18:22 All radiology interpretation(s) finalized by discharge Discharge Plan Discharge Patient Disposition: Home Clinical Impression: Influenza A, Bilateral wheezing Condition: Stable Prescriptions: New oseltamivir [Tamiflu] 75 mg capsule 75 mg PO BID 5 Days Qty: 10 0RF prednisone 20 mg tablet 20 mg PO BID 5 Days Qty: 10 0RF No Action potassium chloride 8 mEq capsule, extended release 8 meq PO DAILY Qty: 30 1RF furosemide [Lasix] 20 mg tablet 20 mg PO QAM Qty: 30 1RF ergocalciferol (vitamin D2) 1,250 mcg (50,000 unit) capsule 1,250 mcg PO .weekly Qty: 4 2RF aspirin [Aspir-81] 81 mg Tablet,Delayed Release (Dr/Ec) 81 mg PO DAILY ibuprofen 200 mg Tablet 200 mg PO Q6H PRN (Reason: Pain) Discharge Orders: Discharge ED (Routine); Ordered 04/01/24 Ordered By: Louis Reyes Referrals: Albino Mcdaniel, [employer] [Primary Care Provider] - Discharge Diet: Cardiac Discharge Activity: Increase activity as tolerated Patient Instructions: Influenza (ED), Opioid Safety, Pain Management Activity Restrictions/Additional Instructions: Take all medication as directed. Follow-up with your primary care provider for recheck next week. Return to the ER for any new or worsening symptoms or any other concerns. Coding Level of Care Code ED Ice Platform Supervisor for Tito Lam
--- NOTE | 2024-04-01 17:03 | ECG_ITS ---
[employer] Test Date: 2024-04-01 Pat Name: Alivia Tomlinson Department: Room: Gender: Female Drawer In Hand: : 1960 Requested By: Louis Reyes Order Number: [id number] Caroline MD: Bubba Bueno M.D. Measurements Intervals [place] Rate: 95 P: 79 CT: 177 QRS: 28 QRSD: 124 T: 180 QT: 374 QTc: 472 Interpretive Statements SINUS RHYTHM WITH FREQUENT VENTRICULAR PREMATURE COMPLEXES POSSIBLE LEFT ATRIAL ENLARGEMENT [-0.1mV P-WAVE IN V1/V2] POSSIBLE RIGHT VENTRICULAR CONDUCTION DELAY [RSR (QR) IN V1/V2] ANTEROSEPTAL MYOCARDIAL INFARCTION , OF INDETERMINATE AGE [40+ ms Q WAVE IN V1-V4] ST DEVIATION AND MODERATE T-WAVE ABNORMALITY, CONSIDER LATERAL ISCHEMIA [-0.1+ mV T-WAVE IN I/aVL/V5/V6] Compared to ECG 04/01/2024 15:56:47 Ventricular premature complex(es) now present Myocardial infarct finding still present T-wave abnormality still present Possible ischemia still present Electronically Signed On 04-01-2024 22:56:30 MESSAGING ARCHITECT by Bubba Bueno M.D. [email or web address]
[2024-04-01 17:05] LABS: Basophils % 0.5 %; Eosinophils % 0.2 %; Hematocrit 45.6 % (36-47); Lymphocytes # 0.7 10^3/uL (0.8-4.8); Lymphocytes % 11.5 %; Mean Corpuscular HGB Conc 31.4 g/dL (30-55); Mean Corpuscular Hemoglobin 28.5 pg (27-33); Mean Corpuscular Volume 90.8 fl (85-98); Mean Platelet Volume 9.7 fL (7.4-10.4); Monocytes # 0.5 10^3/uL (0.2-0.9); Monocytes % 7.8 %; Neutrophils # 5.01 10^3/uL (1.8-7.7); Neutrophils % 79.7 %; Nucleated Red Blood Cells % 0 %; Platelet Count 161 10^3/cmm (157-399); Red Blood Count 5.02 10^6/uL (3.85-5.65); Red Cell Distribution Width 16.2 % (12.1-15.1); White Blood Count 6.28 10^3/uL (3.29-11.43)
[2024-04-01 17:10] LABS: Bilirubin Urine Negative (Negative); Blood Urine Negative (Negative); Glucose Urine UA Negative (Normal); Ketones Urine Negative (Negative); Leukocyte Esterase Urine Negative (Negative); Nitrate Urine Negative (Negative); Protein Urine Negative (Negative); Specific Gravity, Urine 1.005 (1.005-1.030); Urine Appearance Clear (CLEAR); Urine Color Yellow (Yellow); Urobilinogen Urine 0.2 mg/dL (Negative)
[2024-04-01 17:16] LABS: Add Urine Microscopic? YES; Bacteria Urine None Seen /hpf; Hyaline Casts Urine 1.21 /lpf; RBC Urine 0-2 /hpf (0-2); Squamous Epithelial Cell Urine 0-5 /hpf (0-5); WBC Urine 0-5 /hpf (0-5)
[2024-04-01] MEDS: ipratropium-albuterol 3 mL Neb 9 ML INHALATION (17:17)
[2024-04-01 17:25] LABS: Lactic Sepsis W/Reflex 2.4 mmol/L (0.5-2.2)
[2024-04-01 17:26] LABS: Troponin(5th) Baseline 73 ng/L (0-10)
[2024-04-01 17:35] LABS: Alanine Aminotransferase 16 U/L (0-33); Albumin Level 3.8 g/dL (3.5-5.2); Alkaline Phosphatase 119 U/L (35-105); Blood Urea Nitrogen 15 mg/dL (8-23); Calcium 9.2 mg/dL (8.5-10.5); Carbon Dioxide 26 mmol/L (22-29); Chloride 96 mmol/L (98-107); Creatinine Clr Calc Pharmacy 59.9405; Glucose 84 mg/dL (65-115); NT Pro B Type Natriuretic Pept 19295 pg/mL (0-125); Osmolality Calculated 280 mOsm/kg (285-295); Sodium 135 mmol/L (136-145); Total Bilirubin 1.3 mg/dL (0.15-1.2); Total Protein 6.8 g/dL (6.6-8.7)
[2024-04-01] MEDS: methylPREDNISolone sod succ 125 mg/2 mL INJ IVP (17:36)
[2024-04-01 17:44] LABS: Anion Gap 17.1 (5-19); Aspartate Amino Transferase 30 U/L (0-32); Potassium 4.1 mmol/L (3.5-5.1)
--- NOTE | 2024-04-01 18:31 | ECG_ITS ---
[employer] Test Date: 2024-04-01 Pat Name: Alivia Tomlinson Department: Room: Gender: Female Dentistry Teacher: : 1960 Requested By: Louis Reyes Order Number: [id number] Velazquez MD: Bubba Bueno M.D. Measurements Intervals [place] Rate: 106 P: 86 MI: 132 QRS: -37 QRSD: 158 T: 72 QT: 379 QTc: 504 Interpretive Statements SINUS TACHYCARDIA WITH OCCASIONAL VENTRICULAR PREMATURE COMPLEXES LEFT ATRIAL ENLARGEMENT [-0.15mV P-WAVE IN V1/V2] LEFT AXIS DEVIATION [QRS AXIS < -30] RIGHT BUNDLE BRANCH BLOCK [120+ ms QRS DURATION, UPRIGHT V1, 40+ ms S IN I/aVL/V4/V5/V6] Compared to ECG 04/01/2024 17:03:56 Left-axis deviation now present Right bundle-branch block now present Sinus rhythm no longer present Myocardial infarct finding no longer present T-wave abnormality no longer present Possible ischemia no longer present Electronically Signed On 04-01-2024 23:20:48 COBOL MAINFRAME DEVELOPER by Bubba Bueno M.D. [email or web address]
[2024-04-01 18:46] LABS: Reflex Lactate Order REFLEX LACTIC ORDERD
[2024-04-01] MEDS: FUROsemide 10 mg/mL SDV 4mL 40 MG IVP (18:53)
[2024-04-01 19:05] LABS: Covid PCR NEGATIVE (Negative); Influenza A POSITIVE (Negative); Influenza B NEGATIVE (Negative); Respiratory Syncytial Virus Ce NEGATIVE (Negative)
[2024-04-01 20:17] LABS: Lactic Acid level (Lactate) 1.9 mmol/L (0.5-2.2)
== END 2024-04-01 20:15 | disposition home or self-care (01) ==
PROVIDERS: Emergency Provider Student in an Organized Health Care Education/Training Program; PCP Nurse Practitioner
DX: J10.1 Influenza due to other identified influenza virus with other respiratory manifestations (principal); R06.2 Wheezing; Z11.52 Encounter for screening for COVID-19; Z79.82 Long term (current) use of aspirin; F17.210 Nicotine dependence, cigarettes, uncomplicated
CPT/HCPCS: 36415; 71045; 80053; 81001; 83605; 83880; 84484; 85025; 87040; 87637; 93005; 94640; 96374; 96375; 99285; J1940; J2919

== ENCOUNTER → 2024-04-17 09:30 | Outpatient (BNVA) | payer MEDICARE, SELFPAY | PROVIDERS: PCP Nurse Practitioner; Visit Provider Nurse Practitioner | DX: R05.9 Cough, unspecified (principal); I51.7 Cardiomegaly | CPT/HCPCS: 71046 ==

== ENCOUNTER → 2024-05-02 09:38 | Outpatient (BNVA) | payer MEDICARE, SELFPAY | PROVIDERS: PCP Nurse Practitioner; Visit Provider Nurse Practitioner | DX: R06.02 Shortness of breath (principal); I51.7 Cardiomegaly | CPT/HCPCS: 71046 ==

== ENCOUNTER → 2024-05-15 09:15 | Outpatient (BNVA) | payer MEDICARE, SELFPAY | PROVIDERS: PCP Nurse Practitioner; Visit Provider Internal Medicine Rheumatology | DX: M06.041 Rheumatoid arthritis without rheumatoid factor, right hand (principal); M06.042 Rheumatoid arthritis without rheumatoid factor, left hand; I50.9 Heart failure, unspecified; L93.2 Other local lupus erythematosus; Z79.899 Other long term (current) drug therapy; M79.18 Myalgia, other site; M06.9 Rheumatoid arthritis, unspecified; M54.9 Dorsalgia, unspecified; M54.12 Radiculopathy, cervical region; M50.90 Cervical disc disorder, unspecified, unspecified cervical region | CPT/HCPCS: 20553; 99214; J1010; J3490 ==

== ENCOUNTER 2024-06-06 14:56 | Inpatient (IN) | payer MEDICARE, SELFPAY ==
[2024-06-06] VITALS (40 sets, daily range): BP systolic 85–119; BP diastolic 59–82; PULSE 96–108; RESP 11–31; TEMP 36.4; O2SAT 78–99; BMI 18.3
--- NOTE | 2024-06-06 14:57 | XRR_ITS ---
PROCEDURE INFORMATION: Exam: XR Chest Exam date and time: 06/06/2024 3:03 PM Age: 64 years old Clinical indication: Shortness of breath; Additional info: SOB TECHNIQUE: Imaging protocol: Radiologic exam of the chest. Views: 1 view. COMPARISON: CR XR chest 2V* [id number] 05/02/2024 9:38 AM FINDINGS: Lungs: Mild bibasilar opacities, possibly atelectasis, with partial obscuration of the left hemidiaphragm. Trace right pleural effusion is suggested. Pleural spaces: See Lungs finding. Heart/Mediastinum: Slight enlargement of the cardiac silhouette. Bones/joints: Old left rib fractures are seen again. XR/XR chest 1V portable [id number] IMPRESSION: Mild bibasilar opacities with trace right pleural effusion.
[2024-06-06 15:36] LABS: Basophils % 0.3 %; Eosinophils % 0.2 %; Hematocrit 46.7 % (36-47); Lymphocytes # 0.8 10^3/uL (0.8-4.8); Lymphocytes % 6.9 %; Mean Corpuscular HGB Conc 32.1 g/dL (30-55); Mean Corpuscular Hemoglobin 29.6 pg (27-33); Mean Corpuscular Volume 92.1 fl (85-98); Mean Platelet Volume 9.5 fL (7.4-10.4); Monocytes # 0.3 10^3/uL (0.2-0.9); Monocytes % 3.1 %; Neutrophils # 9.93 10^3/uL (1.8-7.7); Neutrophils % 89.2 %; Nucleated Red Blood Cells % 0 %; Platelet Count 141 10^3/cmm (157-399); Red Blood Count 5.07 10^6/uL (3.85-5.65); White Blood Count 11.12 10^3/uL (3.29-11.43)
[2024-06-06 15:54] LABS: INR 1.04 (0.8-1.2)
[2024-06-06 16:02] LABS: Alanine Aminotransferase 19 U/L (0-33); Albumin Level 3.5 g/dL (3.5-5.2); Alkaline Phosphatase 119 U/L (35-105); Anion Gap 17.5 (5-19); Aspartate Amino Transferase 21 U/L (0-32); Blood Urea Nitrogen 23 mg/dL (8-23); Calcium 8.8 mg/dL (8.5-10.5); Carbon Dioxide 26 mmol/L (22-29); Chloride 95 mmol/L (98-107); Creatinine Clr Calc Pharmacy 59.1413; Globulin 3.1 g/dL (1.3-4.6); Glomerular Filtration Rate 71.8 mL/min (90-130); Glucose 192 mg/dL (65-115); NT Pro B Type Natriuretic Pept 11242 pg/mL (0-125); Osmolality Calculated 287 mOsm/kg (285-295); Potassium 4.5 mmol/L (3.5-5.1); Sodium 134 mmol/L (136-145); Total Bilirubin 1.5 mg/dL (0.15-1.2); Total Protein 6.6 g/dL (6.6-8.7)
--- NOTE | 2024-06-06 17:45 | W.ED.SOB ---
Documented by User: INGA Mosley 06/06/24 19:34 HPI - SOB/Dyspnea General: Chief Complaint: Shortness of Breath/Dyspnea Stated Complaint: ANUPAMA reyes Time Seen by Provider: 06/06/24 17:35 Source: patient Mode of arrival: ambulatory Limitations: no limitations History of Present Illness: HPI Narrative: Patient is a 64-year-old female with past medical history of congestive heart failure presenting to the emergency department complaining of worsening shortness of breath over the past few weeks. Notes that she was recently diagnosed with congestive heart failure through primary care back in April, has been taking furosemide, potassium, and appears that she is also on spironolactone. She states that she has been out of her medications recently and has not been taking these, and notes that her stomach has progressively gotten more distended. She does not use oxygen at home. Does note that she has had a progressive productive cough, and recently got over a viral pneumonia from the flu. At this time blood pressure is lower when compared to previous vitals here in the ED, O2 saturation 92 to 96% on room air. She is not reporting any chest pain, abdominal pain, peripheral edema, hemoptysis, or other symptoms at this time. Shortness of breath directly worsened with exertion. MD elicited complaint: shortness of breath Pertinent past history: congestive heart failure and pneumonia Onset (ago): week(s) Context: recent illness and medication noncompliance Timing: progressively worsening Severity: moderate Exacerbating factors: exertion Relieving factors: rest Known history of: congestive heart failure Associated symptoms: Deny abdominal pain, chest pain, fever(s), lightheadedness, nausea, palpitations or vomiting Treatment prior to arrival: diuretics Related Data Home Medications ?Medication ?Instructions ?Recorded ?Confirmed aspirin 81 mg tablet,delayed 81 mg PO DAILY 02/04/24 06/06/24 release Previous Rx's ?Medication ?Instructions ?Recorded acyclovir 800 mg tablet 800 mg PO DAILY #30 tabs 04/18/24 ipratropium 0.5 mg-albuterol 3 mg 3 ml inhalation Q6H PRN wheezing 04/18/24 (2.5 mg base)/3 mL nebulization #90 mL soln furosemide 20 mg tablet (Lasix) 20 mg PO QAM #30 tabs 05/02/24 potassium chloride 8 mEq 8 meq PO DAILY #30 caps 05/02/24 capsule,extended release spironolactone 25 mg tablet 25 mg PO DAILY #30 tabs 05/02/24 leflunomide 20 mg tablet 20 mg PO DAILY #30 tabs 05/15/24 prednisone 10 mg tablet 10 mg PO DAILY #90 tabs 05/15/24 dapagliflozin propanediol 10 mg 10 mg PO QAM #30 tabs 05/23/24 tablet (Farxiga) Allergies Allergy/AdvReac Type Severity Reaction Status Date / Time No Known Allergies Allergy Verified 06/06/24 11:01 Review of Systems General: Reports: 10 or more systems reviewed and unremarkable except in HPI and below Const: Denies: fever(s), chills or fatigue Eyes: Denies: change in vision ENMT: Denies: throat pain, ear or mastoid pain or nasal discharge Card: Denies: chest pain, palpitations, swelling of feet/ankles or lightheadedness Resp: Reports: dyspnea, productive cough and wheezing GI: Reports: bloating; Denies: abdominal pain, nausea, vomiting, diarrhea or constipation : Denies: flank pain, difficulty voiding, dysuria or urinary frequency Musc: Denies: neck pain, back pain or joint pain Skin/Breast: Denies: rash Neuro: Denies: headache(s), numbness in extremities or weakness in extremities PFSH ED PFSH: Medical History Cutaneous lupus erythematosus Seronegative rheumatoid arthritis of both hands Suppression of immune system subtherapeutic Macrocytosis Immunization counseling Muscle weakness (generalized) Gastro-esophageal reflux disease without esophagitis Vitamin D deficiency High risk medication use Osteoarthritis Generalized anxiety disorder Chronic pruritus Colon cancer screening declined Systemic lupus erythematosus, unspecified 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, bilateral [facility] systemic steroid user Immunosuppression Systemic lupus erythematosus (SLE) in adult Surgical History History of ectopic Family History Mother , age 32 CAD (coronary artery disease) Family/Other Cancer Social History Smoking and tobacco/nicotine status: current every day tobacco/nicotine user cigarettes Packs smoked per day: 1 Years cigarettes smoked: 50 Second hand smoke exposure: No Alcohol intake: current Alcohol intake frequency: few times a week Substance/Drug Use: unknown Adopted: No Caregiver/support person: No Lives independently: Yes Household members: spouse Housing: House Marital status: Number of children: 3 Number of grandchildren: 7 service: No Current occupational status: disabled Previous occupational history: [employer] Do you think of yourself as: Straight/Heterosexual Current gender identity: Female Physical Exam Const: COMMON NORMALS: no acute distress, patient oriented x3 and no limitations GENERAL APPEARANCE: cooperative, comfortable and well developed ORIENTATION/CONSCIOUSNESS: Yes awake, Yes oriented to person, Yes oriented to place and Yes oriented to time HENMT: COMMON NORMALS: normocephalic, atraumatic and hearing grossly normal bilaterally HEAD & SCALP: normocephalic and atraumatic Eye: COMMON NORMALS: Equal, round and reactive pupils present, EOMs intact bilaterally and conjunctivae normal CONJUNCTIVA: Yes conjunctivae normal PUPIL: Yes Equal, round and reactive pupils present Neck/C-Spine: COMMON NORMALS: full ROM, supple and no JVD Resp: COMMON NORMALS: normal respiratory effort, No retractions and No use of accessory muscles EFFORT & INSPECTION: Yes audible wheezes OTHER: Questionable crackles of right lower base. No significant increase in work of breathing. She is actively coughing. Cardio: COMMON NORMALS: no JVD, regular rate, regular rhythm, No clicks present (Cardio), No murmurs present (Cardio) and No rub (Cardio) RATE: regular rate RHYTHM: regular rhythm GI: COMMON NORMALS: Soft to palpation and non-tender INSPECTION: Yes abdominal distension AUSCULTATION: Yes normoactive bowel sounds PALPATION: Yes Soft to palpation RECTAL EXAM: deferred Extremity: COMMON NORMALS: normal to inspection, full ROM, capillary refill normal and no pedal edema Neuro: COMMON NORMALS: patient oriented x3, moves all extremities, no focal motor deficits and no sensory deficits noted SENSORIUM/ORIENTATION: Yes oriented to person, Yes oriented to place and Yes oriented to time Psych: COMMON NORMALS: mental status grossly normal and Normal thought process present THOUGHT PROCESS: Normal thought process present Skin: COMMON NORMALS: no rashes or lesions noted GENERAL SKIN EXAM: no rashes or lesions noted Course Vital Signs: Vital signs: Vital Signs Pulse Rate 100 04//25 18:26 Respiratory Rate 18 06/06/24 18:09 Blood Pressure 85/65 06/06/24 18:26 Pulse Oximetry 91 06/06/24 18:26 Oxygen Delivery Me thod Room Air 06/06/24 18:09 MDM - SOB/Dyspnea Medical Decision Making Patient presents with worsening shortness of breath, diagnosed with CHF in April. States that she is on multiple diuretics but has not been taking it recently. Also notes she recently had a viral pneumonia from the flu. Presents here actively coughing, questionable crackles at the base and some abdominal distention. O2 saturation has been in the low to mid 90s, her pressure has been soft compared to previous vitals here. On x-ray there is signs of right pleural effusion, questionable pneumonia. BNP is elevated at 11,000, has been more elevated in the past. She had no complaints of chest pain. I had spoken with hospitalist, Dr. Diehl, who was concerned potential sepsis with her low blood pressure and potential pneumonia and thus will be treated with Vanco and Zosyn at this time, also will be given 500 cc of fluid. Blood cultures ordered at this time. Dr. Diehl currently consulted patient here in the ED and will except to the ICU. I did discuss this patient with Dr. Wheeler who also examined the patient. ABG was obtained and respiratory did give breathing treatments here in the ED. Troponin and further labs pending at this time. Lab Data 06/06/24 15:26 06/06/24 15:26 Labs/Radiology: Radiology Impressions Chest X-Ray 06/06/24 14:57 IMPRESSION: Mild bibasilar opacities with trace right pleural effusion. Laboratory Results WBC 11.12 10^3/uL (3.29-11.43) 06/06/24 15: RBC 5.07 10^6/uL (3.85-5.65) 06/06/24 15:26 Hgb 15.00 g/dL (11.27-16.99) 06/06/24 15:26 Hct 46.7 % (36-47) 06/06/24 15:26 MCV 92.1 fl (85-98) 06/06/24 15:26 MCH 29.6 pg (27-33) 06/06/24 15: MCHC 32.1 g/dL (30-55) 06/06/24 15: RDW 22.0 % (12.1-15.1) H 06/06/24 15:26 Plt Count 141 10^3/cmm (157-399) L 06/06/24 15:26 MPV 9.5 fL (7.4-10.4) 06/06/24 15:26 Neut % (Auto) 89.2 % 06/06/24 15:26 Lymph % (Auto) 6.9 % 06/06/24 15:26 Maury % (Auto) 3.1 % 06/06/24 15:26 Eos % (Auto) 0.2 % 06/06/24 15:26 Baso % (Auto) 0.3 % 06/06/24 15: Neut # (Auto) 9.93 10^3/uL (1.8-7.7) H 06/06/24 15:26 Lymph # (Auto) 0.8 10^3/uL (0.8-4.8) 06/06/24 15:26 Maury # (Auto) 0.3 10^3/uL (0.2-0.9) 06/06/24 15:26 Eos # (Auto) 0.0 10^3/uL (0.0-0.8) 06/06/24 15:26 Baso # (Auto) 0.0 10^3/uL (0.0-0.1) 06/06/24 15: Nucleated RBC % (auto) 0 % 06/06/24 15: Nucleated RBCs # 0.0 /100WBC 06/06/24 15: ESR 7 mm/hr (0-15) 06/06/24 18:12 PT 14.40 SECONDS (12.1-14.9) 06/06/24 15: INR 1.04 (0.8-1.2) 06/06/24 15: D-Dimer 3.53 ug/mLFEU (0-0.59) H 06/06/24 18:12 Specimen Type Arterial 06/06/24 17:58 Sample Site Brachial, left 06/06/24 17:58 ABG pH 7.49 (7.35-7.45) H 06/06/24 17:58 ABG pCO2 36.4 mmHg (35-45) 06/06/24 17:58 ABG pO2 61.4 mmHg (80.0-100.0) L 06/06/24 17:58 ABG PO2/FiO2 Ratio 292 06/06/24 17:58 ABG HCO3 27.7 mmol/L (22-26) H 06/06/24 17:58 ABG O2 Saturation 92.4 06/06/24 17:58 ABG Base Excess 4.4 mmol/L (-2.0-2.0) H 06/06/24 17:58 Gamal Test Pos 06/06/24 17:58 A-a O2 Gradient 5.4 mmHg (5-10) 06/06/24 17:58 Hematocrit 46.1 % (37-47) 06/06/24 17:58 Hgb O2 Saturation 89.4 % (95-100) L 06/06/24 17:58 Carboxyhemoglobin 3.2 %THgb (0.4-20.1) 06/06/24 17:58 Methemoglobin 0.0 % (0.4-1.5) L 06/06/24 17:58 Total Hemoglobin 15.0 g/dL (12-16) 06/06/24 17:58 Sodium 135.0 mmol/L (131-143) 06/06/24 17:58 Potassium 4.1 mmol/L (3.5-5.0) 06/06/24 17:58 Glucose 98.0 mg/dL (70-115) 06/06/24 17:58 Ionized Calcium 1.2 mmol/L (1.1-1.4) 06/06/24 17:58 O2 Delivery Device Room air 06/06/24 17:58 FiO2 21.0 % 06/06/24 17:58 Delicatessen Store Manager ID Monro 06/06/24 17:58 Sodium 134 mmol/L (136-145) L 06/06/24 15:26 Potassium 4.5 mmol/L (3.5-5.1) 06/06/24 15:26 Chloride 95 mmol/L (98-107) L 06/06/24 15:26 Carbon Dioxide 26 mmol/L (22-29) 06/06/24 15:26 Anion Gap 17.5 (5-19) 06/06/24 15:26 BUN 23 mg/dL (8-23) 06/06/24 15:26 Creatinine 0.8 mg/dL (0.5-0.9) 06/06/24 15:26 GFR Calculation 71.8 mL/min (90-130) L 06/06/24 15:26 Glucose 192 mg/dL (65-115) H 06/06/24 15:26 Calculated Osmolality 287 mOsm/kg (285-295) 06/06/24 15:26 Lactic Acid 2.1 mmol/L (0.5-2.2) 06/06/24 18:12 Calcium 8.8 mg/dL (8.5-10.5) 06/06/24 15:26 Total Bilirubin 1.5 mg/dL (0.15-1.2) H 06/06/24 15:26 AST 21 U/L (0-32) 06/06/24 15:26 ALT 19 U/L (0-33) 06/06/24 15:26 Alkaline Phosphatase 119 U/L (35-105) H 06/06/24 15:26 Troponin T Baseline 126 ng/L (0-10) H* 06/06/24 18:12 C-Reactive Protein 17.4 mg/L (0.0-4.9) H 06/06/24 18:12 NT-Pro-B Natriuret Pep 05477 pg/mL (0-125) H 06/06/24 15:26 Total Protein 6.6 g/dL (6.6-8.7) 06/06/24 15:26 Albumin 3.5 g/dL (3.5-5.2) 06/06/24 15:26 Globulin 3.1 g/dL (1.3-4.6) 06/06/24 15:26 Procalcitonin 0.08 ng/mL (0-0.5) 06/06/24 18:12 All radiology interpretation(s) finalized by discharge Discharge Plan Discharge Patient Disposition: Admitted As Inpatient Admit Provider: Sebastien Diehl Clinical Impression: Acute exacerbation of CHF (congestive heart failure) Qualifiers: Heart failure type: unspecified Qualified Code(s): I50.9 - Heart failure, unspecified Pneumonia Qualifiers: Pneumonia type: due to unspecified organism Laterality: unspecified laterality Lung location: unspecified part of lung Qualified Code(s): J18.9 - Pneumonia, unspecified organism Sepsis Qualifiers: Sepsis type: sepsis due to unspecified organism Sepsis acute organ dysfunction status: unspecified Qualified Code(s): A41.9 - Sepsis, unspecified organism Condition: Stable Coding Level of Care Code 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 [employer] Fwd Documented by User: Camilo Wheeler MD 06/06/24 19:52 HPI - SOB/Dyspnea General: Chief Complaint: Shortness of Breath/Dyspnea Stated Complaint: ANUPAMA reyes Time Seen by Provider: 06/06/24 17:35 Related Data Home Medications ?Medication ?Instructions ?Recorded ?Confirmed aspirin 81 mg tablet,delayed 81 mg PO DAILY 02/04/24 06/06/24 release Previous Rx's ?Medication ?Instructions ?Recorded acyclovir 800 mg tablet 800 mg PO DAILY #30 tabs 04/18/24 ipratropium 0.5 mg-albuterol 3 mg 3 ml inhalation Q6H PRN wheezing 04/18/24 (2.5 mg base)/3 mL nebulization #90 mL soln furosemide 20 mg tablet (Lasix) 20 mg PO QAM #30 tabs 05/02/24 potassium chloride 8 mEq 8 meq PO DAILY #30 caps 05/02/24 capsule,extended release spironolactone 25 mg tablet 25 mg PO DAILY #30 tabs 05/02/24 leflunomide 20 mg tablet 20 mg PO DAILY #30 tabs 05/15/24 prednisone 10 mg tablet 10 mg PO DAILY #90 tabs 05/15/24 dapagliflozin propanediol 10 mg 10 mg PO QAM #30 tabs 05/23/24 tablet (Farxiga) Allergies Allergy/AdvReac Type Severity Reaction Status Date / Time No Known Allergies Allergy Verified 06/06/24 11:01 [facility] ED PFSH: Medical History Cutaneous lupus erythematosus Seronegative rheumatoid arthritis of both hands Suppression of immune system subtherapeutic Macrocytosis Immunization counseling Muscle weakness (generalized) Gastro-esophageal reflux disease without esophagitis Vitamin D deficiency High risk medication use Osteoarthritis Generalized anxiety disorder Chronic pruritus Colon cancer screening declined Systemic lupus erythematosus, unspecified 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, bilateral [facility] systemic steroid user Immunosuppression Systemic lupus erythematosus (SLE) in adult Surgical History History of ectopic Family History Mother , age 32 CAD (coronary artery disease) Family/Other Cancer Social History Smoking and tobacco/nicotine status: current every day tobacco/nicotine user cigarettes Packs smoked per day: 1 Years cigarettes smoked: 50 Second hand smoke exposure: No Alcohol intake: current Alcohol intake frequency: few times a week Substance/Drug Use: unknown Adopted: No Caregiver/support person: No Lives independently: Yes Household members: spouse Housing: House Marital status: Number of children: 3 Number of grandchildren: 7 service: No Current occupational status: disabled Previous occupational history: [employer] Do you think of yourself as: Straight/Heterosexual Current gender identity: Female Course Vital Signs: Vital signs: Vital Signs Pulse Rate 100 06/06/24 18:26 Respiratory Rate 18 06/06/24 18:09 Blood Pressure 85/65 06/06/24 18:26 Pulse Oximetry 91 06/06/24 18:26 Oxygen Delivery Me thod Room Air 06/06/24 18:09 MDM - SOB/Dyspnea Medical Decision Making Patient presents with worsening shortness of breath, diagnosed with CHF in April. States that she is on multiple diuretics but has not been taking it recently. Also notes she recently had a viral pneumonia from the flu. Presents here actively coughing, questionable crackles at the base and some abdominal distention. O2 saturation has been in the low to mid 90s, her pressure has been soft compared to previous vitals here. On x-ray there is signs of right pleural effusion, questionable pneumonia. BNP is elevated at 11,000, has been more elevated in the past. She had no complaints of chest pain. I had spoken with hospitalist, Dr. Diehl, who was concerned potential sepsis with her low blood pressure and potential pneumonia and thus will be treated with Vanco and Zosyn at this time, also will be given 500 cc of fluid. Blood cultures ordered at this time. Dr. Diehl currently consulted patient here in the ED and will except to the ICU. I did discuss this patient with Dr. Wheeler who also examined the patient. ABG was obtained and respiratory did give breathing treatments here in the ED. Troponin and further labs pending at this time. Saw patient with midlevel patient has history of CHF she is CHF exacerbation versus pneumonia she was given IV antibiotics did not give her full sepsis bolus she does have severe CHF and would do more harm than good will admit at this time Lab Data 06/06/24 15:26 06/06/24 15:26 Labs/Radiology: Radiology Impressions Chest X-Ray 06/06/24 14:57 IMPRESSION: Mild bibasilar opacities with trace right pleural effusion. Laboratory Results WBC 11.12 10^3/uL (3.29-11.43) 06/06/24 15:26 RBC 5.07 10^6/uL (3.85-5.65) 06/06/24 15:26 Hgb 15.00 g/dL (11.27-16.99) 06/06/24 15:26 Hct 46.7 % (36-47) 06/06/24 15:26 MCV 92.1 fl (85-98) 06/06/24 15:26 MCH 29.6 pg (27-33) 06/06/24 15:26 MCHC 32.1 g/dL (30-55) 06/06/24 15:26 RDW 22.0 % (12.1-15.1) H 06/06/24 15:26 Plt Count 141 10^3/cmm (157-399) L 06/06/24 15:26 MPV 9.5 fL (7.4-10.4) 06/06/24 15:26 Neut % (Auto) 89.2 % 06/06/24 15:26 Lymph % (Auto) 6.9 % 06/06/24 15:26 Maury % (Auto) 3.1 % 06/06/24 15:26 Eos % (Auto) 0.2 % 06/06/24 15:26 Baso % (Auto) 0.3 % 06/06/24 15:26 Neut # (Auto) 9.93 10^3/uL (1.8-7.7) H 06/06/24 15:26 Lymph # (Auto) 0.8 10^3/uL (0.8-4.8) 06/06/24 15:26 Maury # (Auto) 0.3 10^3/uL (0.2-0.9) 06/06/24 15:26 Eos # (Auto) 0.0 10^3/uL (0.0-0.8) 06/06/24 15:26 Baso # (Auto) 0.0 10^3/uL (0.0-0.1) 06/06/24 15:26 Nucleated RBC % (auto) 0 % 06/06/24 15: Nucleated RBCs # 0.0 /100WBC 06/06/24 15: ESR 7 mm/hr (0-15) 06/06/24 18:12 PT 14.40 SECONDS (12.1-14.9) 06/06/24 15: INR 1.04 (0.8-1.2) 06/06/24 15: D-Dimer 3.53 ug/mLFEU (0-0.59) H 06/06/24 18:12 Specimen Type Arterial 06/06/24 17:58 Sample Site Brachial, left 06/06/24 17:58 ABG pH 7.49 (7.35-7.45) H 06/06/24 17:58 ABG pCO2 36.4 mmHg (35-45) 06/06/24 17:58 ABG pO2 61.4 mmHg (80.0-100.0) L 06/06/24 17:58 ABG PO2/FiO2 Ratio 292 06/06/24 17:58 ABG HCO3 27.7 mmol/L (22-26) H 06/06/24 17:58 ABG O2 Saturation 92.4 06/06/24 17:58 ABG Base Excess 4.4 mmol/L (-2.0-2.0) H 06/06/24 17:58 Gamal Test Pos 06/06/24 17:58 A-a O2 Gradient 5.4 mmHg (5-10) 06/06/24 17:58 Hematocrit 46.1 % (37-47) 06/06/24 17:58 Hgb O2 Saturation 89.4 % (95-100) L 06/06/24 17:58 Carboxyhemoglobin 3.2 %THgb (0.4-20.1) 06/06/24 17:58 Methemoglobin 0.0 % (0.4-1.5) L 06/06/24 17:58 Total Hemoglobin 15.0 g/dL (12-16) 06/06/24 17:58 Sodium 135.0 mmol/L (131-143) 06/06/24 17:58 Potassium 4.1 mmol/L (3.5-5.0) 06/06/24 17:58 Glucose 98.0 mg/dL (70-115) 06/06/24 17:58 Ionized Calcium 1.2 mmol/L (1.1-1.4) 06/06/24 17:58 O2 Delivery Device Room air 06/06/24 17:58 FiO2 21.0 % 06/06/24 17:58 Delicatessen Store Manager ID Monro 06/06/24 17:58 Sodium 134 mmol/L (136-145) L 06/06/24 15:26 Potassium 4.5 mmol/L (3.5-5.1) 06/06/24 15:26 Chloride 95 mmol/L (98-107) L 06/06/24 15:26 Carbon Dioxide 26 mmol/L (22-29) 06/06/24 15:26 Anion Gap 17.5 (5-19) 06/06/24 15:26 BUN 23 mg/dL (8-23) 06/06/24 15:26 Creatinine 0.8 mg/dL (0.5-0.9) 06/06/24 15:26 GFR Calculation 71.8 mL/min (90-130) L 06/06/24 15:26 Glucose 192 mg/dL (65-115) H 06/06/24 15:26 Calculated Osmolality 287 mOsm/kg (285-295) 06/06/24 15:26 Lactic Acid 2.1 mmol/L (0.5-2.2) 06/06/24 18:12 Calcium 8.8 mg/dL (8.5-10.5) 06/06/24 15:26 Total Bilirubin 1.5 mg/dL (0.15-1.2) H 06/06/24 15:26 AST 21 U/L (0-32) 06/06/24 15:26 ALT 19 U/L (0-33) 06/06/24 15:26 Alkaline Phosphatase 119 U/L (35-105) H 06/06/24 15:26 Troponin T Baseline 126 ng/L (0-10) H* 06/06/24 18:12 C-Reactive Protein 17.4 mg/L (0.0-4.9) H 06/06/24 18:12 NT-Pro-B Natriuret Pep 35755 pg/mL (0-125) H 06/06/24 15:26 Total Protein 6.6 g/dL (6.6-8.7) 06/06/24 15:26 Albumin 3.5 g/dL (3.5-5.2) 06/06/24 15:26 Globulin 3.1 g/dL (1.3-4.6) 06/06/24 15:26 Procalcitonin 0.08 ng/mL (0-0.5) 06/06/24 18:12 Discharge Plan Discharge Patient Disposition: Admitted As Inpatient Admit Provider: Sebastien Diehl Clinical Impression: Acute exacerbation of CHF (congestive heart failure) Qualifiers: Heart failure type: unspecified Qualified Code(s): I50.9 - Heart failure, unspecified Pneumonia Qualifiers: Pneumonia type: due to unspecified organism Laterality: unspecified laterality Lung location: unspecified part of lung Qualified Code(s): J18.9 - Pneumonia, unspecified organism Sepsis Qualifiers: Sepsis type: sepsis due to unspecified organism Sepsis acute organ dysfunction status: unspecified Qualified Code(s): A41.9 - Sepsis, unspecified organism Condition: Stable Coding Level of Care Code 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
[2024-06-06] MEDS: ipratropium-albuterol 3 mL Neb INHALATION ×2 (18:07→20:59)
[2024-06-06 18:10] LABS: ABG PCO2 36.4 mmHg (35-45); ABG PH Result 7.49 (7.35-7.45); Alveolar-Arterial Oxygen Gradi 5.4 mmHg (5-10); Arterial Blood Gas Hematocrit 46.1 % (37-47); Base Excess ABG 4.4 mmol/L (-2.0-2.0); Blood Gas Allen Test Pos; Blood Gas Operator Identificat MONRO; Blood Gas Sample Site Brachial, left; Blood Gas Sample Type Arterial; Carboxyhemoglobin 3.2 %THgb (0.4-20.1); HCO3 ABG 27.7 mmol/L (22-26); HGB O2 Sat 89.4 % (95-100); Ionized Calcium Level - ABG 1.2 mmol/L (1.1-1.4); Oxygen Device ROOM AIR; Oxygen Saturation ABG 92.4; PO2 ABG 61.4 mmHg (80.0-100.0); PO2 FiO2 Ratio Arterial Blood 292; Potassium Level - ABG 4.1 mmol/L (3.5-5.0)
[2024-06-06] MEDS: sodium chloride 0.9% 500 ML 999 ML IV (18:19)
[2024-06-06] MEDS: methylPREDNISolone sod succ 125 mg/2 mL INJ IVP (18:19)
--- NOTE | 2024-06-06 18:20 | ECG_ITS ---
[facility] [facility] Test Date: 2024-06-06 Pat Name: Alivia Tomlinson Department: Room: Gender: Female Citizenship Teacher: : 1960 Requested By: Kristian Martin Order Number: [id number] Caroline MD: Bubba Bueno M.D. Measurements Intervals [place] Rate: 97 P: 78 [place]: 152 QRS: 30 QRSD: 118 T: 186 QT: 388 QTc: 493 Interpretive Statements SINUS RHYTHM WITH FREQUENT VENTRICULAR PREMATURE COMPLEXES INCOMPLETE RIGHT BUNDLE BRANCH BLOCK [90+ ms QRS DURATION, TERMINAL R IN V1/V2, 40+ ms S IN I/aVL/V4/V5/V6] ST DEVIATION AND MARKED T-WAVE ABNORMALITY, CONSIDER ANTEROLATERAL ISCHEMIA [-0.5+ mV T-WAVE IN I/aVL/V3-V6] Compared to ECG 04/01/2024 18:57:35 Incomplete right bundle-branch block now present T-wave abnormality now present Possible ischemia now present Left-axis deviation no longer present Right bundle-branch block no longer present Electronically Signed On 06-10-2024 18:26:53 CDT by Bubba Bueno M.D. [email or web address]
[2024-06-06] MEDS: piperacillin-tazobactam 3.375 GM in sodium chloride 0.9% (plus) 50 ML IV (18:21)
--- NOTE | 2024-06-06 18:23 | CTR_ITS ---
PROCEDURE INFORMATION: Exam: CTA Chest With Contrast Exam date and time: 06/06/2024 7:13 PM Age: 64 years old Clinical indication: Shortness of breath; Additional info: SOB TECHNIQUE: Imaging protocol: Computed tomographic angiography of the chest with contrast. Exam focused on the arteries. 3D rendering (Not supervised by radiologist): MIP and/or 3D reconstructed images were created by the technologist. Radiation optimization: All CT scans at this facility use at least one of these dose optimization techniques: automated exposure control; mA and/or kV adjustment per patient size (includes targeted exams where dose is matched to clinical indication); or iterative reconstruction. Contrast material: OMNI 350; Contrast volume: 81 ml; Contrast route: INTRAVENOUS (IV); COMPARISON: CR XR chest 1V portable [id number] 06/06/2024 3:03 PM RADIATION DOSE METRICS: Total DLP (mGy-cm): 214.85 FINDINGS: Pulmonary arteries: Main pulmonary artery trunk is enlarged measuring 3.5 cm with enlargement of the right and left pulmonary arteries as well. No filling defects are evident. Great vessels off aortic arch: Potential high-grade stenosis at the origin of the left subclavian artery. Moderate burden of calcific plaque noted in each proximal common carotid artery. Bovine aortic branching pattern. Aorta: Thoracic aorta is normal in caliber. There is no obvious aortic dissection, but penetrating ulcer cannot be excluded. Other arteries: Prominent arterial disease. Veins: Distended superior vena cava. Distended hepatic veins and inferior vena cava. Lungs: There are streaky bands of opacity in the mid to lower lungs bilaterally. No findings to suggest pulmonary edema. Respiratory motion artifact limits assessment of fine parenchymal detail, but there are no features to suggest significant background interstitial lung disease. Pleural spaces: Right larger than left non loculated pleural effusions. No pneumothorax on either side. Heart: No significant aortic valve leaflet calcification appreciated. There is advanced four-chamber cardiomegaly. Small pericardial effusion noted. Coronary arteries: Extensive coronary artery calcification is present. Lymph nodes: 0.9 cm short axis diameter low-density nodule in the prevascular space could be an excrescence of the superior pericardial recess or a non pathologically enlarged lymph node. There is no axillary, supraclavicular, or upper abdominal adenopathy. Spleen: Splenic granulomata are noted. Adrenal glands: Visualized adrenals are normal. Bones/joints: Degenerative change is demonstrated throughout the thoracic spine without evidence of spinal stenosis. Several old healed rib fractures are noted. No aggressive bony lesions. No acute fractures. There is mild thoracic dextroscoliosis which could be positional. Soft tissues: Unremarkable. CT/CT angio chest PE protcl [id number] IMPRESSION: 1. Constellation of findings is most compelling for heart failure including severe cardiomegaly, bilateral pleural effusions, distension of the superior and inferior vena cava, and small pericardial effusion. 2. Enlarged pulmonary artery tree is compatible with chronic PA hypertension. No findings of acute pulmonary embolism. 3. Advanced arterial disease. No findings of acute aortic dissection. Additional assessment the aorta is limited by contrast bolus timing and patient motion. There is probably high-grade stenosis at the origin of the left subclavian artery. Moderate stenosis of the proximal common carotid arteries noted.
--- NOTE | 2024-06-06 18:24 | USCV_ITS ---
Alivia Tomlinson Age: 64 Gender: F : 1960 Exam Date: 06/06/2024 22:19 Ordering Phys: Sebastien Diehl MD Technologist: GLADIS Exam Location: [facility] [place] Indication: SOB CHF pneumonia BP: 85 / 65 HR: 101 Rhythm: Sinus Technical Quality: Adequate MEASUREMENTS (Male / Female) Normal Values 2D ECHO LV Diastolic Diameter PLAX 4.9 cm 4.2 - 5.9 / 3.9 - 5.3 cm IVS Diastolic Thickness 1.3 cm 0.6 - 1.0 / 0.6 - 0.9 cm IVS Systolic Thickness 1.5 cm LVPW Diastolic Thickness 1.0 cm 0.6 - 1.0 / 0.6 - 0.9 cm LVPW Systolic Thickness 1.5 cm LVOT Diameter 1.9 cm LV Ejection Fraction 2D Teich 40.0 % LV Ejection Fraction MOD 4C 24.7 % LV Ejection Fraction MOD 2C 38.5 % LV Ejection Fraction 2C AL 39.1 % LA Diameter 3.9 cm Aorta at Sinotubular Diameter 2.6 cm IVC Diameter 1.6 cm M-MODE LA Ao Ratio MM 1.5 AV Cusp Separation MM 1.8 cm DOPPLER AV Peak Velocity 68.0 cm/s LVOT Peak Velocity 54.0 cm/s AV Area Cont Eq vti 2.7 cm squared AV Area Cont Eq pk 2.2 cm squared MV Peak Velocity 102.0 cm/s MV Area PHT 7.2 cm squared Mitral E to A Ratio 1.3 TV Peak Velocity 271.3 cm/s TR Peak Velocity 283.0 cm/s TR Peak Gradient 32.0 mmHg TV Peak E Velocity 85.0 cm/s PV Peak Velocity 72.0 cm/s FINDINGS Left Ventricle Left ventricle is normal in size. LV systolic function is moderately reduced with EF of 35-40%. Moderate global hypokinesis. Right Ventricle RV appears dilated and severely hypokinetic. Right Atrium Normal in size. Echogenic structure seen in some views likely artifact. Left Atrium Dilated Mitral Valve Mitral valve is thickened. Posterior leaflet has restricted mobility. Mild mitral regurgitation Aortic Valve Aortic valve is thickened. No significant stenosis or regurgitation. Tricuspid Valve Mild tricuspid regurgitation. Pulmonary artery systolic pressure is normal. Pulmonic Valve Not well visualized Pericardium Trace pericardial effusion Aorta Normal in size IVC Appears to be normal CONCLUSIONS LV systolic function is moderately reduced with EF of 35-40% RV appears dilated and severely hypokinetic. Left atrial dilation Mild mitral regurgitation Mild tricuspid regurgitation. Trace pericardial effusion No comparison studies are available. Bubba Bueno MD (Electronically Signed) Final Date: 07 June 2024 08:47 S
--- NOTE | 2024-06-06 18:32 | PM.HP ---
Providers/Chief Complaint Primary Care Provider: Albino Mcdaniel, [facility] Chief Complaint: dr rodriguez, SOB History of Present Illness Alivia Tomlinson is a 64 year old female with a past medical history of COPD, CHF, lupus with immunocompromise state on chronic prednisone, leflunomide, prediabetes, who presents [facility] for shortness of breath. According to patient, she has been short of breath for the last 4 months, she has had progressively increased shortness of breath, shortness of breath with exertion, orthopnea, paroxysmal nocturnal dyspnea, but recently her shortness of breath has significantly progressed that she is short of breath all the time. She tells me that recently she had the flu, then she had another viral infection, then she had pneumonia she continues to have a productive cough, fatigue, malaise, no fevers, no chills she also reports increased abdominal distention, her blood pressures are soft here, she tells me she has lost weight, denies feeling lightheaded, denies feeling dizzy, does report smoking since she was in her teens, she does report intermittent chest pain, but nothing currently, no stroke history, no history of CAD, no history of stenting Review of Systems Const: Reports: fatigue and malaise; Denies: fever(s) or chills Card: Reports: chest pain Resp: Reports: dyspnea GI: Reports: bloating; Denies: abdominal pain, nausea, vomiting or diarrhea : Denies: flank pain Neuro: Denies: headache(s) Medications/Allergies Home Medications ?Medication ?Instructions ?Recorded ?Confirmed ?Last Taken ?Type aspirin 81 mg tablet,delayed 81 mg PO DAILY 02/04/24 06/06/24 Unknown History release acyclovir 800 mg tablet 800 mg PO DAILY #30 tabs 04/18/24 06/06/24 Unknown Rx ipratropium 0.5 mg-albuterol 3 mg 3 ml inhalation Q6H PRN wheezing 04/18/24 06/06/24 Unknown Rx (2.5 mg base)/3 mL nebulization #90 mL soln furosemide 20 mg tablet (Lasix) 20 mg PO QAM #30 tabs 05/02/24 06/06/24 Unknown Rx potassium chloride 8 mEq 8 meq PO DAILY #30 caps 05/02/24 06/06/24 Unknown Rx capsule,extended release spironolactone 25 mg tablet 25 mg PO DAILY #30 tabs 05/02/24 06/06/24 Unknown Rx leflunomide 20 mg tablet 20 mg PO DAILY #30 tabs 05/15/24 06/06/24 Unknown Rx prednisone 10 mg tablet 10 mg PO DAILY #90 tabs 05/15/24 06/06/24 Unknown Rx dapagliflozin propanediol 10 mg 10 mg PO QAM #30 tabs 05/23/24 06/06/24 Unknown Rx tablet (Farxiga) Allergies Allergy/AdvReac Type Severity Reaction Status Date / Time No Known Allergies Allergy Verified 06/06/24 11:01 PFSH Acute PFSH: Medical History Cutaneous lupus erythematosus Seronegative rheumatoid arthritis of both hands Suppression of immune system subtherapeutic Macrocytosis Immunization counseling Muscle weakness (generalized) Gastro-esophageal reflux disease without esophagitis Vitamin D deficiency High risk medication use Osteoarthritis Generalized anxiety disorder Chronic pruritus Colon cancer screening declined Systemic lupus erythematosus, unspecified 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, bilateral [facility] systemic steroid user Immunosuppression Systemic lupus erythematosus (SLE) in adult Surgical History History of ectopic Family History Mother , age 32 CAD (coronary artery disease) Family/Other Cancer Social History Smoking and tobacco/nicotine status: current every day tobacco/nicotine user cigarettes Packs smoked per day: 1 Years cigarettes smoked: 50 Second hand smoke exposure: No Alcohol intake: current Alcohol intake frequency: few times a week Substance/Drug Use: unknown Adopted: No Caregiver/support person: No Lives independently: Yes Household members: spouse Housing: House Marital status: Number of children: 3 Number of grandchildren: 7 service: No Current occupational status: disabled Previous occupational history: [employer] Do you think of yourself as: Straight/Heterosexual Current gender identity: Female Vitals/I&O/Wt Last Vital Signs Pulse 100 06/06/24 18:26 Resp 18 06/06/24 18:09 BP 85/65 06/06/24 18:26 Pulse Ox 91 06/06/24 18:26 O2 Del Method Room Air 06/06/24 18:09 Weight last 48 hrs Weight 49.895 kg Physical Exam Const: COMMON NORMALS: no acute distress and patient oriented x3 Eye: COMMON NORMALS: Equal, round and reactive pupils present Resp: COMMON NORMALS: normal respiratory effort, No retractions, No use of accessory muscles and clear to auscultation bilaterally AUSCULTATION: clear to auscultation bilaterally Cardio: COMMON NORMALS: no JVD, regular rate, regular rhythm, S1 normal heart sound present and S2 normal heart sound present RATE: regular rate RHYTHM: regular rhythm HEART SOUNDS: S1 normal heart sound present and S2 normal heart sound present GI: COMMON NORMALS: Normal to inspection, nondistended, normoactive bowel sounds present, Soft to palpation and non-tender Extremity: COMMON NORMALS: no calf tenderness and no pedal edema Neuro: COMMON NORMALS: patient oriented x3, CN's II-XII intact bilaterally and moves all extremities Psych: COMMON NORMALS: mental status grossly normal Sepsis: Is patient septic: Yes Focused sepsis exam performed: Yes Focused sepsis exam: No mottling lower extremities, cap refill less than 2 seconds, palpable pulses Date exam was performed: 06/06/24 Time exam was performed: 18:30 Data 06/06/24 15:26 06/06/24 15:26 Micro: Microbiology 06/06/24 18:00 Blood Culture - Preliminary Blood SPECIMEN COLLECTED 06/06/24 17:53 Blood Culture - Preliminary Blood SPECIMEN COLLECTED A&P Assessment and plan (1) Acute respiratory failure: (2) Sepsis: Qualifiers: Sepsis acute organ dysfunction status: unspecified Sepsis type: sepsis due to unspecified organism Qualified Code(s): A41.9 - Sepsis, unspecified organism (3) Congestive heart failure: (4) Shock: (5) Pneumonia: Qualifiers: Laterality: unspecified laterality Lung location: unspecified part of lung Pneumonia type: due to unspecified organism Qualified Code(s): J18.9 - Pneumonia, unspecified organism (6) Systemic lupus erythematosus (SLE) in adult: (7) Immunosuppression: (8) Hyperlipidemia: (9) NSTEMI (non-ST elevated myocardial infarction): Plan Acute respiratory failure -She does not appear [place] [address], she does have mild bibasilar opacities with trace right pleural effusion -Certainly CHF could be playing a role, she is on Lasix, does have increased abdominal distention -Given her immunocompromise state, her recent history of multiple infections, cough, certainly pneumonia and sepsis could be playing a role -COPD also could be playing a role, no active wheezing has received steroids Plan -Will monitor in ICU -ABG ordered -Currently on room air will consider oxygen therapy based on clinical progress -Given immunocompromise state, history of multiple infections will start her on broad-spectrum antibiotic therapy vancomycin, Zosyn -Blood cultures -Sputum culture -CT angiogram of the chest, CRP, Pro-Trent -Currently does not appear to be in respiratory distress, does not appear to be fluid overloaded will consider Lasix based on clinical progress -Hold off on steroids based on clinical progress -DuoNeb, budesonide Shock -Etiology could be from sepsis from pneumonia -Has received a liter bolus -Would avoid further fluid therapy due to risk of CHF elevated BNP -Will monitor in ICU -Patient might require Levophed, maintain MAP more than 65 -Lactic acid level obtained -Is chronically on prednisone, risk of adrenal insufficiency will give her 1 dose of stress dose hydrocortisone Chest pain complaints, NSTEMI -No active chest pain -EKGs, serial troponins, telemetry monitoring -Aspirin, statin -Cardiac echo -Heparin drip CHF exacerbation, type unknown -Will hold off on Lasix therapy based on clinical progress -Might require pressors to maintain MAP greater than 65 while diuresing -Cardiac echo History of COPD Immunocompromise state with lupus, continue prednisone, hold leflunomide Prediabetes, low-dose sliding scale Full code Heparin drip for DVT prophylaxis Protonix for GI prophylaxis PDMP PDMP Reviewed: Not Reviewed Attestations Medical Necessity Statement*: Patient requires hospitalization for acute respiratory failure, pneumonia, CHF, shock, immunocompromise state, chest pain, NSTEMI Diagnoses Acute respiratory failure J96.00 Sepsis A41.9 Sepsis acute organ dysfunction status: unspecified Sepsis type: sepsis due to unspecified organism Congestive heart failure I50.9 Shock R57.9 Pneumonia J18.9 Laterality: unspecified laterality Lung location: unspecified part of lung Pneumonia type: due to unspecified organism Systemic lupus erythematosus (SLE) in adult M32.9 Immunosuppression D89.9 Hyperlipidemia E78.5 NSTEMI (non-ST elevated myocardial infarction) I21.4
[2024-06-06] MEDS: VANCOMYCIN ADD-Vantage 1,000 MG in 0.9% NaCl ADD-Vantage 250 ML 250 MG IV (18:33)
[2024-06-06 18:40] LABS: C Reactive Protein 17.4 mg/L (0.0-4.9); Lactic Sepsis W/Reflex 2.1 mmol/L (0.5-2.2)
[2024-06-06 18:45] LABS: Troponin(5th) Baseline 126 ng/L (0-10)
[2024-06-06 18:47] LABS: Procalcitonin 0.08 ng/mL (0-0.5)
[2024-06-06 18:48] LABS: Erythrocyte Sedimentation Rate 7 mm/hr (0-15)
[2024-06-06 19:11] LABS: D Dimer 3.53 ug/mLFEU (0-0.59)
[2024-06-06] MEDS: iohexol 350 mg/mL 500 mL Btl (per mL) IV (19:19)
[2024-06-06 20:03] LABS: Reflex Lactate Order REFLEX LACTIC ORDERD
[2024-06-06 20:23] LABS: Troponin 5 2HR Delta -2.7 ABS# (0-10)
[2024-06-06 20:25] LABS: Troponin 5 2HR 123.3 ng/L (0-10)
--- NOTE | 2024-06-06 20:29 | PHA.VACGOAL ---
Vancomycin Goal - Goal Vancomycin Goal:: 15-20 mg/L Vancomycin Indication:: Pneumonia (SEPSIS) - Therapy Current therapy:: Pip/Tazo Day of therpy:: Day [1]of [] . Actual body weight (kg): 49.895 kg - Data Labs: WBC 11.12 10^3/uL (3.29-11.43) 06/06/24 15:26 RBC 5.07 10^6/uL (3.85-5.65) 06/06/24 15:26 Hgb 15.00 g/dL (11.27-16.99) 06/06/24 15:26 Hct 46.7 % (36-47) 06/06/24 15:26 MCV 92.1 fl (85-98) 06/06/24 15:26 MCH 29.6 pg (27-33) 06/06/24 15:26 MCHC 32.1 g/dL (30-55) 06/06/24 15:26 RDW 22.0 % (12.1-15.1) H 06/06/24 15:26 Sodium 134 mmol/L (136-145) L 06/06/24 15:26 Potassium 4.5 mmol/L (3.5-5.1) 06/06/24 15:26 Chloride 95 mmol/L (98-107) L 06/06/24 15:26 Carbon Dioxide 26 mmol/L (22-29) 06/06/24 15:26 Anion Gap 17.5 (5-19) 06/06/24 15:26 BUN 23 mg/dL (8-23) 06/06/24 15:26 Creatinine 0.8 mg/dL (0.5-0.9) 06/06/24 15:26 GFR Calculation 71.8 mL/min (90-130) L 06/06/24 15:26 Treatment plan:: new consult Regimen:: New start vancomycin for Pneumonia/Sepsis. Load dose of 1000 mg (~20 mg/kg) given in ER. Started on maintenance dose of 500 mg q12h based on population based pharmacokinetic nomogram.
[2024-06-06 20:51] LABS: Add Urine Microscopic? NO
[2024-06-06] MEDS: budesonide 0.5 mg/2 mL Neb INHALATION (20:58)
[2024-06-06 21:14] LABS: Bilirubin Urine Neg (Negative); Blood Urine Neg (Negative); Glucose Urine UA Norm (Normal); Ketones Urine Negative (Negative); Leukocyte Esterase Urine Negative (Negative); Nitrate Urine Negative (Negative); Protein Urine Neg (Negative); Specific Gravity, Urine 1.005 (1.005-1.030); Urine Appearance Clear (CLEAR); Urine Color Yellow (Yellow); Urobilinogen Urine Norm (Negative); pH Urine 6 (5-7)
[2024-06-06 21:15] LABS: Charge for UA Resulting for Rev
[2024-06-06] MEDS: hydrocortisone 100 mg/2 mL SDV IVP (21:28)
[2024-06-06] MEDS: atorvastatin 40 mg Tablet PO (21:28)
[2024-06-06] MEDS: aspirin 81 mg EC Tablet PO (21:28)
[2024-06-06] MEDS: pantoprazole 40 mg SDV IVP (21:29)
[2024-06-06] MEDS: heparin 5,000 unit/mL INJ 1 mL IVP (21:29)
[2024-06-06] MEDS: heparin drip 25,000 UNIT/500 ML PREMIX 15 UNIT IV (21:30)
--- NOTE | 2024-06-06 21:33 | ECG_ITS ---
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1960 Requested By: Kristian Martin Order Number: [id number] Reading MD: JAGDISH HERNANDEZ Measurements Intervals [place] Rate: 104 P: 78 AL: 168 QRS: 33 QRSD: 114 T: 180 QT: 360 QTc: 474 Interpretive Statements SINUS TACHYCARDIA WITH OCCASIONAL VENTRICULAR PREMATURE COMPLEXES POSSIBLE RIGHT ATRIAL ENLARGEMENT [0.25mV P-WAVE] INCOMPLETE RIGHT BUNDLE BRANCH BLOCK [90+ ms QRS DURATION, TERMINAL R IN V1/V2, 40+ ms S IN I/aVL/V4/V5/V6] ST DEVIATION AND MARKED T-WAVE ABNORMALITY, CONSIDER ANTEROLATERAL ISCHEMIA [-0.5+ mV T-WAVE IN I/aVL/V3-V6] Compared to ECG 06/06/2024 18:20:49 Sinus rhythm no longer present T-wave abnormality still present Possible ischemia still present Electronically Signed On 06-11-2024 21:53:19 CDT by JAGDISH HERNANDEZ [email or web address]
[2024-06-06 22:15] LABS: Thyroid Stimulating Hormone 1.17 uIU/mL (0.27-4.20)
[2024-06-06 22:16] LABS: Glucose Point of Care 152 mg/dL (70-110)
[2024-06-06 22:31] LABS: Lactic Acid level (Lactate) 1.8 mmol/L (0.5-2.2)
[2024-06-07] VITALS (164 sets, daily range): BP systolic 76–158; BP diastolic 53–107; PULSE 91–113; RESP 14–44; TEMP 36–37.3; O2SAT 79–100; BMI 18.8
[2024-06-07 00:38] LABS: Troponin 5 6HR Delta -22.6 ng/L (0-12)
[2024-06-07 00:39] LABS: Troponin 5 6HR 103.4 ng/L (0-10)
[2024-06-07] MEDS: piperacillin-tazobactam 3.375 GM in sodium chloride 0.9% (plus) 50 ML IV ×3 (00:56→16:04)
[2024-06-07 01:02] LABS: Estmated Average Glucose 131; Hemoglobin A1C 6.2 % (4.0-6.0)
--- NOTE | 2024-06-07 03:07 | PC.NURSE ---
0238 Monitor alarm Vt, into see patient resolved before this nurse entered room. Patient sleeping at time - awakened, denies cp or shortness of breath, o2 saturation 83% on room air with good wave form, o2 applied at 2 L then increased to 4l as o2 saturation stayed at 90% on 2L. bp at time 115/90. Sinus rhythm with bbb on monitor noted. Color pink. Dr. Justice in unit reviewed printed Vt from monitor - noted 9. 5 second run with 26 beats VT. Patient currently dx with NSTEMI on heparin drip. Instructed to continue to monitor.
[2024-06-07 04:47] LABS: Basophils % 0.1 %; Hematocrit 45.7 % (36-47); Lymphocytes # 0.6 10^3/uL (0.8-4.8); Lymphocytes % 7.1 %; Mean Corpuscular HGB Conc 31.3 g/dL (30-55); Mean Corpuscular Hemoglobin 28.8 pg (27-33); Mean Corpuscular Volume 92.1 fl (85-98); Mean Platelet Volume 9.3 fL (7.4-10.4); Monocytes # 0.1 10^3/uL (0.2-0.9); Monocytes % 1.2 %; Neutrophils # 7.29 10^3/uL (1.8-7.7); Nucleated Red Blood Cells % 0 %; Platelet Count 147 10^3/cmm (157-399); Red Blood Count 4.96 10^6/uL (3.85-5.65); White Blood Count 8.02 10^3/uL (3.29-11.43)
[2024-06-07 05:08] LABS: Partial Thromboplastin Time 54.4 SECONDS (23.9-36.7)
[2024-06-07 05:15] LABS: Alanine Aminotransferase 22 U/L (0-33); Albumin Level 3.4 g/dL (3.5-5.2); Alkaline Phosphatase 115 U/L (35-105); Anion Gap 16.3 (5-19); Aspartate Amino Transferase 19 U/L (0-32); Blood Urea Nitrogen 19 mg/dL (8-23); Calcium 8.6 mg/dL (8.5-10.5); Carbon Dioxide 24 mmol/L (22-29); Chloride 100 mmol/L (98-107); Creatinine Clr Calc Pharmacy 59.8424; Glomerular Filtration Rate 83.7 mL/min (90-130); Glucose 137 mg/dL (65-115); Magnesium 1.8 mg/dL (1.7-2.3); Osmolality Calculated 286 mOsm/kg (285-295); Phosphorus 3.6 mg/dL (2.5-4.5); Potassium 4.3 mmol/L (3.5-5.1); Sodium 136 mmol/L (136-145); Total Bilirubin 1.5 mg/dL (0.15-1.2); Total Protein 6.4 g/dL (6.6-8.7)
[2024-06-07 05:23] LABS: NT Pro B Type Natriuretic Pept 7226 pg/mL (0-125)
[2024-06-07] MEDS: vancomycin 500 MG in sodium chloride 0.9% (plus) 100 ML 200 MG IV ×2 (05:42→18:23)
[2024-06-07] MEDS: heparin 5,000 unit/mL INJ 1 mL IVP (05:42)
--- NOTE | 2024-06-07 06:00 | ECG_ITS ---
[employer] Test Date: 2024-06-07 Pat Name: Alivia Tomlinson Department: Room: 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1960 Requested By: Sebastien Diehl Order Number: [id number] Caroline MD: JAGDISH HERNANDEZ Measurements Intervals [place] Rate: 96 P: 74 NE: 144 QRS: 36 QRSD: 122 T: 218 QT: 377 QTc: 478 Interpretive Statements SINUS RHYTHM POSSIBLE LEFT ATRIAL ENLARGEMENT [-0.1mV P-WAVE IN V1/V2] SEPTAL MYOCARDIAL INFARCTION , OF INDETERMINATE AGE [40+ ms Q WAVE IN V1/V2] ST DEVIATION AND MARKED T-WAVE ABNORMALITY, CONSIDER ANTEROLATERAL ISCHEMIA [-0.5+ mV T-WAVE IN I/aVL/V3-V6] Compared to ECG 06/06/2024 21:33:19 Myocardial infarct finding now present Sinus tachycardia no longer present Ventricular premature complex(es) no longer present Incomplete right bundle-branch block no longer present T-wave abnormality still present Possible ischemia still present Electronically Signed On 06-11-2024 21:53:40 CDT by JAGDISH HERNANDEZ [email or web address]
[2024-06-07 08:49] LABS: Glucose Point of Care 174 mg/dL (70-110)
[2024-06-07] MEDS: insulin lispro 100 unit/1 mL SUBCUT ×2 (08:57→11:27)
[2024-06-07] MEDS: pantoprazole 40 mg SDV IVP ×2 (08:58→20:30)
[2024-06-07] MEDS: midodrine 5 mg TABLET 10 MG PO (08:58)
[2024-06-07] MEDS: predniSONE 10 mg Tablet PO (08:58)
[2024-06-07] MEDS: aspirin 81 mg EC Tablet PO (08:58)
[2024-06-07] MEDS: FUROsemide 10 mg/mL SDV 4mL 40 MG IVP ×2 (08:58→20:30)
[2024-06-07] MEDS: albumin 25 G/100 ML BAG 60 G IV (09:52)
[2024-06-07 11:11] LABS: Glucose Point of Care 207 mg/dL (70-110)
[2024-06-07] MEDS: ipratropium-albuterol 3 mL Neb INHALATION ×3 (11:11→20:26)
[2024-06-07] MEDS: budesonide 0.5 mg/2 mL Neb INHALATION ×2 (11:12→20:26)
--- NOTE | 2024-06-07 11:15 | P.CONIM_ITS ---
<Statement entered by Bubba Bueno M.D - 06/08/24 12:49> Patient was evaluated and cared for in conjunction with an advanced practice practitioner.? I personally examined the patient and reviewed the chart and all pertinent data including imaging, telemetry, and laboratory results.? I discussed the patient in detail with the advanced practice practitioner.? Please see? their note for complete H&P, testing results and agreed upon plan of care for the patient. Patient is diuresing well. Continue IV Lasix. Start Levophed. If diuresis is not adequate, can consider adding dobutamine later. Will need right and left heart cath once euvolemic. GENERAL: Patient is alert, awake and oriented x3. HEART: Regular S1 and S2 LUNGS Diminished air entry bilaterally CENTRAL NERVOUS SYSTEM: Grossly nonfocal. EXTREMITIES: Lower extremities with no edema Providers/Reason For Consult 2 Consulting Physician/Specialty*: Dr. Bueno Reason for Consult*: Systolic heart failure Requesting Physician: Dr. Diehl Attending Physician: Sebastien Diehl MD Primary Care Provider: GAY Galeana History of Present Illness History of Present Illness Alivia Tomlinson is a 64 year old female who reportedly has a history of congestive heart failure presented to the emergency room yesterday complaining of severe shortness of breath that had worsened over the past few weeks. She states that her PCP apparently had diagnosed her with CHF in April. She ran out of her medications and noticed her stomach was getting distended and she developed severe shortness of breath. She was hypotensive on admission. proBNP was elevated 11,000. Troponin was elevated at 126?123.3?103.4. Patient denies having any history of stenting procedures done. She states she quit drinking alcohol about a year ago. She does smoke currently. She does have high cholesterol as well as elevated A1c with prediabetes. She denies any chest pain at this time. She states that her shortness of breath has much improved since she came in yesterday. Per nursing staff she is diuresing well. She does not have a catheter at this time so it is somewhat difficult to assess I&O. EKG showed sinus rhythm with frequent PVCs. She does not have any evidence of kidney dysfunction at this time. CTA of the chest was done yesterday that showed severe cardiomegaly, bilateral pleural effusions, small pericardial effusion. Her echo showed reduced EF of 30 to 40%. She also had right ventricular heart failure as well. The vena cava was not severely dilated. Overall on my assessment she appears well compensated. She does have a distended abdomen and slight crackles in left lower lobe but she states her shortness of breath has improved. Review of Systems 2 Narrative: Consitutional: denies fever, chills, body aches, or changes in appetite, denies abnormal weight loss Eyes: Denies changes in vision Card: Denies chest pain, palpitations, irregular heart rhythm, edema, syncope, reports shortness of breath on exertion, denies orthopnea Resp: Denies shortness of breath, denies hemoptysis, denies cough GI: denies abdominal pain, denies nausea or voimting, denies blood in stool : denies blood in urine, denies dysuria Musc: Denies extremity pain, denies limited range of motion or recent injury Skin: Denies rash, lesions, or wounds, denies changes to skin color Neuro: Denies nubmness in extremities, h/a, s/s of stroke Medications/Allergies Home Medications ?Medication ?Instructions ?Recorded ?Confirmed ?Last Taken ?Type aspirin 81 mg tablet,delayed 81 mg PO DAILY 02/04/24 0 06/07/24 06/06/24 History release acyclovir 800 mg tablet 800 mg PO DAILY #30 tabs 01/3006/07/24 Unknown Rx ipratropium 0.5 mg-albuterol 3 mg 3 ml inhalation Q6H PRN wheezing 04/18/24 06/07/24 Unknown Rx (2.5 mg base)/3 mL nebulization #90 mL soln furosemide 20 mg tablet (Lasix) 20 mg PO QAM #30 tabs 05/02/24 06/07/24 06/06/24 Rx potassium chloride 8 mEq 8 meq PO DAILY #30 caps 04/0906/07/24 06/06/24 Rx capsule,extended release spironolactone 25 mg tablet 25 mg PO DAILY #30 tabs 06/07/24 06/06/24 Rx leflunomide 20 mg tablet 20 mg PO DAILY #30 tabs 05/0606/07/24 06/06/24 Rx prednisone 10 mg tablet 10 mg PO DAILY #90 tabs 05/0606/07/24 06/06/24 Rx dapagliflozin propanediol 10 mg 10 mg PO QA #30 tabs 05/23/24 06/07/24 06/06/24 Rx tablet (Farxiga) Allergies Allergy/AdvReac Type Severity Reaction Status Date / Time No Known Allergies Allergy Verified 06/06/24 11:01 Current Medications Generic Name Dose Route Start Last Admin Trade Name Freq PRN Reason Stop Dose Admin Albuterol/Ipratropium 3 ml 06/06/24 20:06/07/24 11:12 Ipratropium-Albuterol 3 Ml Neb INHALATION 3 ml QID.RESPIRATORY ZAYRA Administration Aspirin 81 mg 06/06/24 20:09 06/07/24 08:58 Aspirin 81 Mg Ec Tablet PO 81 mg DAILY ZAYRA Administration Atorvastatin Calcium 40 mg 06/06/24 21:00 06/06/24 21:28 Atorvastatin 40 Mg Tablet PO 40 mg BEDTIME ZAYRA Administration Budesonide 0.5 mg 06/06/24 20:09 06/07/24 11:12 Budesonide 0.5 Mg/2 Ml Neb INHALATION 0.5 mg BID.RESPIRATORY ZAYRA Administration Furosemide 40 mg 06/07/24 08:30 06/07/24 08:58 Furosemide 10 Mg/Ml Sdv 4ml IVP 40 mg Q12H ZAYRA Administration Heparin Sodium (Porcine) 0 unit 06/06/24 20:09 06/07/24 05:42 Heparin 5,000 Unit/Ml Inj 1 Ml IVP 1,000 unit PRN PRN Administration Heparin Weight Based Protocol -Subsequent Bolus Protocol Heparin Sodium/Sodium Chloride 25,000 unit in 500 mls @ 0 mls/hr 06/06/24 20:09 06/07/24 05:25 Heparin Drip IV 16.03 unit/kg/hr CONT ZAYRA 16 mls/hr Titration Protocol Per Protocol Piperacillin Sod/Tazobactam 50 mls @ 12.5 mls/hr 06/07/24 00:30 06/07/24 08:59 Sod 3.375 gm/ Sodium Chloride IV 12.5 mls/hr Q8H ZAYRA Administration Vancomycin HCl 500 mg/ Sodium 100 mls @ 200 mls/hr 06/07/24 06:30 06/07/24 09:07 Chloride IV Infused Q12H ZAYRA Infusion Insulin Human Lispro 0 unit 06/07/24 08:00 06/07/24 08:57 Insulin Lispro 100 Unit/1 Ml SUBCUT 2 unit TIDWM ZAYRA Administration Protocol Pantoprazole Sodium 40 mg 06/06/24 20:09 06/07/24 08:58 Pantoprazole 40 Mg Sdv IVP 40 mg Q12H ZAYRA Administration Prednisone 10 mg 06/07/24 09:00 06/07/24 08:58 Prednisone 10 Mg Tablet PO 10 mg DAILY ZAYRA Administration PFSH Acute 2 PFSH: Medical History Cutaneous lupus erythematosus Seronegative rheumatoid arthritis of both hands Suppression of immune system subtherapeutic Macrocytosis Immunization counseling Muscle weakness (generalized) Gastro-esophageal reflux disease without esophagitis Vitamin D deficiency High risk medication use Osteoarthritis Generalized anxiety disorder Chronic pruritus Colon cancer screening declined Systemic lupus erythematosus, unspecified 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, bilateral group home systemic steroid user Immunosuppression Systemic lupus erythematosus (SLE) in adult Surgical History History of ectopic Family History Mother , age 32 CAD (coronary artery disease) Family/Other Cancer Social History Smoking and tobacco/nicotine status: current every day tobacco/nicotine user cigarettes Packs smoked per day: 1 Years cigarettes smoked: 50 Second hand smoke exposure: No Alcohol intake: current Alcohol intake frequency: few times a week Substance/Drug Use: unknown Adopted: No Caregiver/support person: No Lives independently: Yes Household members: spouse Housing: House Marital status: Number of children: 3 Number of grandchildren: 7 service: No Current occupational status: disabled Previous occupational history: [employer] Do you think of yourself as: Straight/Heterosexual Current gender identity: Female Vitals/I&O/Wt Last Vital Signs Temp 98.2 F 06/07/24 09:50 Pulse 105 H 06/07/24 11:10 Resp 18 06/07/24 11:00 BP 101/85 06/07/24 09:45 Pulse Ox 95 06/07/24 11:00 O2 Del Method Nasal Cannula 06/07/24 11:00 O2 Flow Rate 3 06/07/24 11:00 06/06/24 06/07/24 06/07/24 22:59 06:59 14:59 Intake Total 800 / 800 168.75 / 968.75 100 / 100 Output Total 1300 / 1300 Balance 800 / 800 168.75 / 968.75 -1200 / -1200 Weight last 48 hrs Weight 113 lb 8.609 oz Weight 113 lb 8.609 oz Weight 110 lb Physical Exam 2 Narrative: General: No apparent distress, healthy appearing, well nourished HENMT: normoceophalic Muskuloskeletal: Full ROM Lymphatic: no lymphedema noted Respiratory: Normal respiratory effort, left and right lower lobe with fine crackles at the base otherwise clear throughout, no use of accessory muscles Cardio: No JVD, regular rate, regular rhythm, S1 S2 normal, no murmurs, peripheral pulses 2+ radial palpated bilaterally GI: abdomen is moderately distended Extremities: Full ROM, normal, normal capillary refill, no cyanosis or edema Neuro: Alert and oriented x4, no focal motor deficits Psych: Affect normal, denies suicidal ideation, mental status grossly normal Skin: No rashes or lesions noted, no wounds Data 06/07/24 04:11 06/07/24 04:11 Micro: Microbiology 06/06/24 18:00 Blood Culture - Preliminary Blood SPECIMEN COLLECTED 06/06/24 17:53 Blood Culture - Preliminary Blood SPECIMEN COLLECTED A&P Assessment and plan (1) Acute respiratory failure: (2) Sepsis: Qualifiers: Sepsis acute organ dysfunction status: unspecified Sepsis type: sepsis due to unspecified organism Qualified Code(s): A41.9 - Sepsis, unspecified organism (3) Congestive heart failure: (4) Shock: (5) Pneumonia: Qualifiers: Laterality: unspecified laterality Lung location: unspecified part of lung Pneumonia type: due to unspecified organism Qualified Code(s): J18.9 - Pneumonia, unspecified organism (6) Systemic lupus erythematosus (SLE) in adult: (7) Immunosuppression: (8) Hyperlipidemia: (9) NSTEMI (non-ST elevated myocardial infarction): Plan The plan for this patient is to continue diuresis with lasix 40 BID. She is responding well per nursing staff. I have encouraged a catheter for better evaluation of I&O, but patient does not want one at this time. Overall, she appears compensated but bp is soft. May start levophed if needed to maintain bp while giving lasix. If she does not continue to respond well, she will need to be put on dobutamine due to biventricular heart failure. When she is euvolemic, she will require a left heart cath and possible PCI due to elevated troponin and reduced EF with several risk factors for underlying coronary disease. She verbalized full understanding of this. Thank you, Dr. Diehl, for allowing us to care for this very pleasant 64 year old female. PDMP PDMP Reviewed: Not Reviewed Consult Attestations 2 Medical Necessity Statement: Deferred to primary. Coding Level of Care Code Acute Code for [facility] Fwd Diagnoses Acute respiratory failure J96.00 Sepsis A41.9 Sepsis acute organ dysfunction status: unspecified Sepsis type: sepsis due to unspecified organism Congestive heart failure I50.9 Shock R57.9 Pneumonia J18.9 Laterality: unspecified laterality Lung location: unspecified part of lung Pneumonia type: due to unspecified organism Systemic lupus erythematosus (SLE) in adult M32.9 Immunosuppression D89.9 Hyperlipidemia E78.5 NSTEMI (non-ST elevated myocardial infarction) I21.4
[2024-06-07] MEDS: norepinephrine 4 MG/250 ML BAG 30 MG IV (11:27)
[2024-06-07 11:57] LABS: Partial Thromboplastin Time 75.1 SECONDS (23.9-36.7)
--- NOTE | 2024-06-07 14:08 | XR_ITS ---
WS: [id number] XR chest 1V portable [id number] REASON FOR EXAM: Post PICC insertion FINDINGS: Right arm PICC line has been placed. The tip of the catheter is in the distal IVC and an appropriate position for use. The catheter position was confirmed with the interventional radiology rn over the phone at 1:49 p.m. Tip of the catheter is in the distal SVC in a position appropriate for use. Confirmation of the catheter tip position was made with the interventional radiology rn over the phone at 1:49 p.m. XR/XR chest 1V portable [id number] IMPRESSION: Right arm PICC line placement as above.
--- NOTE | 2024-06-07 14:37 | P.PN_ITS ---
Subjective 2 Subjective: Patient was seen this morning, she is alert oriented x 3, following all commands, denies any fevers, no chills, no cough, or shortness of breath, blood pressures are soft, discussed echocardiogram findings, discussed CTA findings, I do not feel that she has a pneumonia, however with her cough complaints, we will treat her with antibiotics until her cultures are -48 hours, discussed diuresing her with pressors, discussed biventricular heart failure, IV diuresis, complicated with hypotension, she voiced understanding, all questions answered, consulted cardiology, -Patient was given Lasix, with albumin, with midodrine, blood pressures remain less than 65, order placed for PICC line, Levophed -Patient reports anxiety, placed on Prec edex drip Vitals/I&O/Wt Last Vital Signs Temp 98.2 F 06/07/24 09:50 Pulse 105 H 06/07/24 12:15 Resp 22 H 06/07/24 12:15 BP 90/71 06/07/24 12:15 Pulse Ox 97 06/07/24 12:15 O2 Del Method Nasal Cannula 06/07/24 12:15 O2 Flow Rate 3 06/07/24 12:15 06/06/24 06/07/24 06/07/24 22:59 06:59 14:59 Intake Total 800 / 800 168.75 / 968.75 260.133 / 260.133 Output Total 1300 / 1300 Balance 800 / 800 168.75 / 968.75 -1039.867 / -1039.867 Weight last 48 hrs Weight 51.5 kg Weight 51.5 kg Weight 49.895 kg Physical Exam 2 Const: COMMON NORMALS: no acute distress and patient oriented x3 Resp: COMMON NORMALS: normal respiratory effort, No retractions and No use of accessory muscles AUSCULTATION: crackles and wheezes Cardio: COMMON NORMALS: regular rate, regular rhythm, S1 normal heart sound present and S2 normal heart sound present RATE: regular rate RHYTHM: r egular rhythm HEART SOUNDS: S1 normal heart sound present and S2 normal heart sound present GI: COMMON NORMALS: Normal to inspection, nondistended, normoactive bowel sounds present and non-tender Extremity: COMMON NORMALS: no pedal edema Neuro: COMMON NORMALS: patient oriented x3 Psych: COMMON NORMALS: mental status grossly normal Urinary Catheter Management: Chandler: Cath Placed During This Visit: yes Urinary Catheter Date of Insertion: 06/07/24 Urinary Catheter Time of Insertion: 12:30 Data 06/07/24 04:11 06/07/24 04:11 Micro: Microbiology 06/06/24 18:00 Blood Culture - Preliminary Blood SPECIMEN COLLECTED 06/06/24 17:53 Blood Culture - Preliminary Blood SPECIMEN COLLECTED A&P Assessment and plan (1) Acute respiratory failure: (2) Sepsis: Qualifiers: Sepsis acute organ dysfunction status: unspecified Sepsis type: sepsis due to unspecified organism Qualified Code(s): A41.9 - Sepsis, unspecified organism (3) Congestive heart failure: (4) Shock: (5) Pneumonia: Qualifiers: Laterality: unspecified laterality Lung location: unspecified part of lung Pneumonia type: due to unspecified organism Qualified Code(s): J18.9 - Pneumonia, unspecified organism (6) Systemic lupus erythematosus (SLE) in adult: (7) Immunosuppression: (8) Hyperlipidemia: (9) NSTEMI (non-ST elevated myocardial infarction): Plan Acute respiratory failure -She does not appear [place] [address], she does have mild bibasilar opacities with trace right pleural effusion -Certainly CHF is playing a role, she is on Lasix, does have increased abdominal distention -Given her immunocompromise state, her recent history of multiple infections, cough, certainly pneumonia and sepsis could be playing a role -COPD also could be playing a role, no active wheezing has received steroids CTA CT/CT angio chest PE protcl [id number] IMPRESSION: 1. Constellation of findings is most compelling for heart failure including severe cardiomegaly, bilateral pleural effusions, distension of the superior and inferior vena cava, and small pericardial effusion. 2. Enlarged pulmonary artery tree is compatible with chronic PA hypertension. No findings of acute pulmonary embolism. 3. Advanced arterial disease. No findings of acute aortic dissection. Additional assessment the aorta is limited by contrast bolus timing and patient motion. There is probably high-grade stenosis at the origin of the left subclavian artery. Moderate stenosis of the proximal common carotid arteries noted. Cardiac echo CONCLUSIONS LV systolic function is moderately reduced with EF of 35-40% RV appears dilated and severely hypokinetic. Left atrial dilation Mild mitral regurgitation Mild tricuspid regurgitation. Trace pericardial effusion No comparison studies are available. Plan -Will monitor in ICU -Currently on room 3L -Given immunocompromise state, history of multiple infections will start her on broad-spectrum antibiotic therapy vancomycin, Zosyn, will likely de-escalate after 48 hours -Blood cultures -Sputum culture -Lasix 40 IV twice daily, with albumin, -Started on Levophed to maintain MAP in 65 -PICC line order placed -Hold off on steroids based on clinical progress -DuoNeb, budesonide Shock -Likely cardiogenic shock given EF of 35% -Component of sepsis also difficult to rule out -Will monitor in ICU -Continue Levophed Levophed, maintain MAP more than 65 -Is chronically on prednisone, risk of adrenal insufficiency, status post 1 dose hydrocortisone Chest pain complaints, NSTEMI -No active chest pain -EKGs, serial troponins, telemetry monitoring -Aspirin, statin -Cardiac echo -Heparin drip CHF exacerbation, biventricular heart failure, systolic -Lasix 40 IV twice daily, with albumin, -On Levophed to maintain MAP greater than 65 -Cardiology consulted -Might require pressors to maintain MAP greater than 65 while diuresing -Cardiac echo, as above History of COPD Immunocompromise state with lupus, continue prednisone, hold leflunomide Prediabetes, low-dose sliding scale Full code Heparin drip for DVT prophylaxis Protonix for GI prophylaxis PDMP PDMP Reviewed: Not Reviewed Attestations 2 Medical Necessity Statement*: Patient requires hospitalization for systolic CHF exacerbation, shock, biventricular heart failure, CHF,, pneumonia, sepsis Coding Level of Care Code Critical Care >/= 30 minutes Critical care time (in minutes): 40 The high probability of a clinically significant, sudden or life threatening deterioration, as referenced in this documentation, required my full and direct attention, intervention and personal management. The critical care time shown is in addition to time spent performing any reported separately billable procedures and includes the following: [x] Data and vital sign review and interpretation [x ] Patient assessment, examination and intervention [x] Medication orders and management [x] Patient/Family updates as able [x] Care Coordination and Documentation. Diagnoses Acute respiratory failure J96.00 Sepsis A41.9 Sepsis acute organ dysfunction status: unspecified Sepsis type: sepsis due to unspecified organism Congestive heart failure I50.9 Shock R57.9 Pneumonia J18.9 Laterality: unspecified laterality Lung location: unspecified part of lung Pneumonia type: due to unspecified organism Systemic lupus erythematosus (SLE) in adult M32.9 Immunosuppression D89.9 Hyperlipidemia E78.5 NSTEMI (non-ST elevated myocardial infarction) I21.4
--- NOTE | 2024-06-07 15:19 | PICC.NOTE ---
Triple lumen PICC placed to right basilic vein. Referred to vascular access nurse for PICC placement due to need for IV vasopressors. Risks and benefits discussed and informed consent obtained from pt. Right arm assessed with right basilic vein measuring 3.7 mm, straight, and apparent best choice for placement. Using sterile technique and MST,right basilic vein accessed x 1 stick. Mid-arm circumference measured 10 cm from right AC 19 cm. Trimmed cath 38 cm with 0 cm external length noted. CXR shows tip in distal SVC, in good position for use per radiologist. Line secured with stat-lock. Insertion site covered with Biopatch and TSM. Report given to bedside nurse, SARAH Porter.
[2024-06-07 16:41] LABS: Glucose Point of Care 208 mg/dL (70-110)
[2024-06-07] MEDS: ALPRAZolam 0.5 mg Tablet 0.25 MG PO (16:47)
[2024-06-07 18:20] LABS: Glucose Point of Care 135 mg/dL (70-110)
[2024-06-07 19:36] LABS: Partial Thromboplastin Time 49.1 SECONDS (23.9-36.7)
[2024-06-07] MEDS: atorvastatin 40 mg Tablet PO (20:30)
[2024-06-08] VITALS (91 sets, daily range): BP systolic 91–139; BP diastolic 62–97; PULSE 83–145; RESP 14–31; TEMP 36.4–37; O2SAT 81–100; BMI 18.8
[2024-06-08] MEDS: piperacillin-tazobactam 3.375 GM in sodium chloride 0.9% (plus) 50 ML IV ×3 (01:30→16:29)
[2024-06-08] MEDS: heparin 5,000 unit/mL INJ 1 mL IVP (01:42)
[2024-06-08 04:07] LABS: Basophils % 0.2 %; Eosinophils % 0.2 %; Hematocrit 42.4 % (36-47); Lymphocytes # 1.6 10^3/uL (0.8-4.8); Mean Corpuscular HGB Conc 31.1 g/dL (30-55); Mean Corpuscular Hemoglobin 28.4 pg (27-33); Mean Corpuscular Volume 91.2 fl (85-98); Mean Platelet Volume 10.5 fL (7.4-10.4); Monocytes # 0.9 10^3/uL (0.2-0.9); Monocytes % 8.1 %; Neutrophils # 8.94 10^3/uL (1.8-7.7); Nucleated Red Blood Cells % 0.2 %; Platelet Count 148 10^3/cmm (157-399); Red Blood Count 4.65 10^6/uL (3.85-5.65); Red Cell Distribution Width 21.8 % (12.1-15.1); White Blood Count 11.61 10^3/uL (3.29-11.43)
[2024-06-08] MEDS: heparin drip 25,000 UNIT/500 ML PREMIX 16 UNIT IV (04:24)
[2024-06-08] MEDS: vancomycin 500 MG in sodium chloride 0.9% (plus) 100 ML 200 MG IV (06:18)
[2024-06-08 07:09] LABS: Glucose Point of Care 84 mg/dL (70-110)
[2024-06-08 07:57] LABS: Alanine Aminotransferase 18 U/L (0-33); Albumin Level 3.7 g/dL (3.5-5.2); Alkaline Phosphatase 94 U/L (35-105); Anion Gap 9.9 (5-19); Aspartate Amino Transferase 23 U/L (0-32); Blood Urea Nitrogen 24 mg/dL (8-23); Calcium 8.7 mg/dL (8.5-10.5); Carbon Dioxide 36 mmol/L (22-29); Chloride 98 mmol/L (98-107); Creatinine Clr Calc Pharmacy 53.1932; Globulin 2.7 g/dL (1.3-4.6); Glomerular Filtration Rate 62.6 mL/min (90-130); Glucose 79 mg/dL (65-115); Magnesium 1.8 mg/dL (1.7-2.3); Osmolality Calculated 293 mOsm/kg (285-295); Potassium 3.9 mmol/L (3.5-5.1); Sodium 140 mmol/L (136-145); Total Bilirubin 1.3 mg/dL (0.15-1.2); Total Protein 6.4 g/dL (6.6-8.7)
[2024-06-08 08:40] LABS: Partial Thromboplastin Time 131.2 SECONDS (23.9-36.7)
[2024-06-08] MEDS: predniSONE 10 mg Tablet PO (08:41)
[2024-06-08] MEDS: ALPRAZolam 0.5 mg Tablet 0.25 MG PO ×2 (08:41→21:09)
[2024-06-08] MEDS: aspirin 81 mg EC Tablet PO (08:41)
[2024-06-08] MEDS: pantoprazole 40 mg SDV IVP ×2 (08:42→20:01)
[2024-06-08] MEDS: FUROsemide 10 mg/mL SDV 4mL 40 MG IVP ×2 (08:42→20:10)
[2024-06-08] MEDS: ipratropium-albuterol 3 mL Neb INHALATION ×2 (11:27→19:55)
[2024-06-08 12:04] LABS: Glucose Point of Care 143 mg/dL (70-110)
[2024-06-08] MEDS: insulin lispro 100 unit/1 mL SUBCUT (12:26)
--- NOTE | 2024-06-08 12:37 | ECG_ITS ---
[facility]: [facility]08 Pat Name: Alivia Tomlinson Department: Room: [facility] Gender: Female [employer]: : 1960 Requested By: Sebastien Diehl Order Number: [id number] Caroline MD: Bubba Bueno M.D. Measurements Intervals [place] Rate: 145 P: 267 AK: 112 QRS: 20 QRSD: 147 T: -82 QT: 346 QTc: 538 Interpretive Statements JUNCTIONAL TACHYCARDIA WITH OCCASIONAL VENTRICULAR PREMATURE COMPLEXES, POSSIBLE ATRIAL FLUTTER INTRAVENTRICULAR CONDUCTION DELAY [130+ ms QRS DURATION] Compared to ECG 06/07/2024 06:02:45 Intraventricular conduction delay now present Sinus rhythm no longer present Myocardial infarct finding no longer present T-wave abnormality no longer present Possible ischemia no longer present Electronically Signed On 06-08-2024 17:33:42 CDT by Bubba Bueno M.D. [email or web address]
[2024-06-08] MEDS: amiodarone 150 MG/100 ML PREMIX 400 MG IV (12:52)
--- NOTE | 2024-06-08 13:27 | P.PN_ITS ---
<Statement entered by Bubba Bueno M.D - 06/09/24 12:44> Patient was cared for in conjunction with an advanced practice practitioner.? I reviewed the chart and all pertinent data including imaging, telemetry, and laboratory results.? I discussed the patient in detail with the advanced practice practitioner.? Please see? their note for progress note, testing results and agreed upon plan of care for the patient. Subjective 2 Subjective: Patient was doing well this morning on rounds. She has diuresed well -398 8 over 24 hours. Currently getting Lasix 40 every 12. Blood pressure is stable at 126/78 off of Levophed. Currently on a heparin drip. Kidney function is stable at 0.9. She did go into possible a flutter today. Was given 2 doses of adenosine and this was not successful so patient is currently getting amiodarone bolus with drip. Vitals/I&O/Wt Last Vital Signs Temp 97.5 F L 06/08/24 00:00 Pulse 141 H 06/08/24 12:30 Resp 27 H 06/08/24 12:30 BP 129/90 06/08/24 12:30 Pulse Ox 91 06/08/24 12:30 O2 Del Method Nasal Cannula 06/08/24 12:30 O2 Flow Rate 1.5 06/08/24 12:30 06/07/24 06/08/24 06/08/24 22:59 06:59 14:59 Intake Total 457.000 / 717.133 394.333 / 1111.466 222.533 / 222.533 Output Total 1250 / 2550 3000 / 5550 Balance -793.000 / -1832.867 -2605.667 / -4438.534 222.533 / 222.533 Weight last 48 hrs Weight 113 lb 8.609 oz Weight 113 lb 8.609 oz Weight 113 lb 8.609 oz Weight 110 lb Physical Exam 2 Narrative: General: No apparent distress, healthy appearing, well nourished HENMT: normoceophalic Muskuloskeletal: Full ROM Lymphatic: no lymphedema noted Respiratory: Normal respiratory effort, clear throughout all lung pena, no use of accessory muscles Cardio: No JVD, regular rate, regular rhythm, S1 S2 normal, no murmurs, peripheral pulses 2+ radial palpated bilaterally GI: abdomen is moderately distended Extremities: Full ROM, normal, normal capillary refill, no cyanosis or edema Neuro: Alert and oriented x4, no focal motor deficits Psych: Affect normal, denies suicidal ideation, mental status grossly normal Skin: No rashes or lesions noted, no wounds Urinary Catheter Management: Chandler: Cath Placed During This Visit: yes Reason for Continuing Indwelling Catheter: Accurate Measurement of Urinary Output in Critically Ill Patients Urinary Catheter Date of Insertion: 06/07/24 Urinary Catheter Time of Insertion: 12:30 Data 06/08/24 03:12 06/08/24 07:27 Micro: Microbiology 06/06/24 18:00 Blood Culture - Preliminary Blood NEGATIVE TO DATE 06/06/24 17:53 Blood Culture - Preliminary Blood NEGATIVE TO DATE A&P Assessment and plan (1) Acute respiratory failure: (2) Sepsis: Qualifiers: Sepsis acute organ dysfunction status: unspecified Sepsis type: sepsis due to unspecified organism Qualified Code(s): A41.9 - Sepsis, unspecified organism (3) Congestive heart failure: (4) Shock: (5) Pneumonia: Qualifiers: Laterality: unspecified laterality Lung location: unspecified part of lung Pneumonia type: due to unspecified organism Qualified Code(s): J18.9 - Pneumonia, unspecified organism (6) Systemic lupus erythematosus (SLE) in adult: (7) Immunosuppression: (8) Hyperlipidemia: (9) NSTEMI (non-ST elevated myocardial infarction): Plan Patient was doing well at the time of rounds. She has developed possible aflutter. Agree with amiodarone bolus and drip. She will need LHC. We will plan on doing this tomorrow if rate is better controlled. Continue diuresis, strict I&O, and monitor renal function. PDMP PDMP Reviewed: Not Reviewed Attestations 2 Medical Necessity Statement*: Deferred to primary. Coding Level of Care Code Acute Code for [facility] Diagnoses Acute respiratory failure J96.00 Sepsis A41.9 Sepsis acute organ dysfunction status: unspecified Sepsis type: sepsis due to unspecified organism Congestive heart failure I50.9 Shock R57.9 Pneumonia J18.9 Laterality: unspecified laterality Lung location: unspecified part of lung Pneumonia type: due to unspecified organism Systemic lupus erythematosus (SLE) in adult M32.9 Immunosuppression D89.9 Hyperlipidemia E78.5 NSTEMI (non-ST elevated myocardial infarction) I21.4
--- NOTE | 2024-06-08 13:52 | PC.NURSE ---
At 1229 patient's heart rate jumped up to 145 after trying to readjust themselves in the bed to eat. EKG was performed and Dr. Diehl was contacted. He ordered to give 6 mg of adenosine and it was administered at 1248. Patient was still sustaining a heart rate of [address] Diehl ordered to give 12 mg of adenosine. The 12 mg of adesonine were administered at 1250. After administration the patient continued to sustain a heart rate in the 140s. Dr. Diehl ordered to give a loading dose of amiodarone and to start them on an amiodarone drip. Patient returned to Sinus Rhythm at 1329. Dr. Diehl was notified and he ordered to keep the amiodarone drip running.
[2024-06-08] MEDS: adenosine 3 mg/mL SDV 2mL 6 MG IVP (14:11)
--- NOTE | 2024-06-08 15:14 | P.PN_ITS ---
Subjective 2 Subjective: Patient was seen this morning, she is alert oriented x 3, following all commands, she tells me that she is breathing more comfortably, she diuresed 5 L overnight, she is requiring Levophed, discussed plans on continue to diurese her, plans on coronary angiography tomorrow -I was called urgently by nursing staff as patient developed SVT heart rates into the 150s, blood pressures 90s over 60s, she is alert orient x 3, following all commands -Crash cart moved to bedside, she was gi augustine ice pack, vagal maneuver, but did not affect heart rate much, she was given 6 mg IV push adenosine, heart rates remain in the 140s to 150s SVT, after 1 minute, she was given 12 mg of IV push adenosine, heart rates still remain in the 140s to 150s, blood pressures have improved to 100s over 60s, she remains alert oriented x 3, following all commands -She was then given 150 mg IV bolus of a miodarone, started on amiodarone drip, heart rates down to the 120s, maps greater than 65, TSH within normal limits, magnesium 1.8, potassium 3.9, SVT versus A-fib -A few hours later, nursing staff report to me that patient converted to normal sinus rhythm -Discussed with cardiology Vitals/I&O/Wt Last Vital Signs Temp 97.5 F L 06/08/24 00:00 Pulse 141 H 06/08/24 12:30 Resp 27 H 06/08/24 12:30 BP 129/90 06/08/24 12:30 Pulse Ox 91 06/08/24 12:30 O2 Del Method Nasal Cannula 06/08/24 12:30 O2 Flow Rate 1.5 06/08/24 12:30 06/08/24 06/08/24 06/08/24 06:59 14:59 22:59 Intake Total 394.333 / 1111.466 272.533 / 272.533 Output Total 3000 / 5550 Balance -2605.667 / -4438.534 272.533 / 272.533 Weight last 48 hrs Weight 51.5 kg Weight 51.5 kg Weight 51.5 kg Physical Exam 2 Const: COMMON NORMALS: no acute distress and patient oriented x3 HENMT: COMMON NORMALS: normocephalic HEAD & SCALP: normocephalic Resp: COMMON NORMALS: normal respiratory effort, No retractions, No use of accessory muscles and clear to auscultation bilaterally AUSCULTATION: clear to auscultation bilaterally Cardio: COMMON NORMALS: regular rate, regular rhythm, S1 normal heart sound present and S2 normal heart sound present RATE: regular rate RHYTHM: r egular rhythm HEART SOUNDS: S1 normal heart sound present and S2 normal heart sound present GI: COMMON NORMALS: Normal to inspection, nondistended, normoactive bowel sounds present and non-tender Extremity: COMMON NORMALS: no pedal edema Neuro: COMMON NORMALS: patient oriented x3 Psych: COMMON NORMALS: mental status grossly normal Urinary Catheter Management: Chandler: Cath Placed During This Visit: yes Reason for Continuing Indwelling Catheter: Accurate Measurement of Urinary Output in Critically Ill Patients Urinary Catheter Date of Insertion: 06/07/24 Urinary Catheter Time of Insertion: 12:30 Data 06/08/24 03:12 06/08/24 07:27 Micro: Microbiology 06/06/24 18:00 Blood Culture - Preliminary Blood NEGATIVE TO DATE 06/06/24 17:53 Blood Culture - Preliminary Blood NEGATIVE TO DATE A&P Assessment and plan (1) Acute respiratory failure: (2) Sepsis: Qualifiers: Sepsis acute organ dysfunction status: unspecified Sepsis type: sepsis due to unspecified organism Qualified Code(s): A41.9 - Sepsis, unspecified organism (3) Congestive heart failure: (4) Shock: (5) Pneumonia: Qualifiers: Laterality: unspecified laterality Lung location: unspecified part of lung Pneumonia type: due to unspecified organism Qualified Code(s): J18.9 - Pneumonia, unspecified organism (6) Systemic lupus erythematosus (SLE) in adult: (7) Immunosuppression: (8) Hyperlipidemia: (9) NSTEMI (non-ST elevated myocardial infarction): Plan Acute respiratory failure -She does not appear [place] [address], she does have mild bibasilar opacities with trace right pleural effusion -Certainly CHF is playing a role, she is on Lasix, does have increased abdominal distention -Given her immunocompromise state, her recent history of multiple infections, cough, certainly pneumonia and sepsis could be playing a role -COPD also could be playing a role, no active wheezing has received steroids CTA CT/CT angio chest PE protcl [id number] IMPRESSION: 1. Constellation of findings is most compelling for heart failure including severe cardiomegaly, bilateral pleural effusions, distension of the superior and inferior vena cava, and small pericardial effusion. 2. Enlarged pulmonary artery tree is compatible with chronic PA hypertension. No findings of acute pulmonary embolism. 3. Advanced arterial disease. No findings of acute aortic dissection. Additional assessment the aorta is limited by contrast bolus timing and patient motion. There is probably high-grade stenosis at the origin of the left subclavian artery. Moderate stenosis of the proximal common carotid arteries noted. Cardiac echo CONCLUSIONS LV systolic function is moderately reduced with EF of 35-40% RV appears dilated and severely hypokinetic. Left atrial dilation Mild mitral regurgitation Mild tricuspid regurgitation. Trace pericardial effusion No comparison studies are available. Plan -Will monitor in ICU -Currently on room 3L -Given immunocompromise state, history of multiple infections will start her on broad-spectrum antibiotic therapy vancomycin, Zosyn, will likely de-escalate after 48 hours -Blood cultures -Sputum culture -Lasix 40 IV twice daily, with albumin, -Started on Levophed to maintain MAP in 65 -PICC line -Hold off on steroids based on clinical progress -DuoNeb, budesonide Shock -Likely cardiogenic shock given EF of 35% -Component of sepsis also difficult to rule out -Will monitor in ICU -Continue Levophed Levophed, maintain MAP more than 65 -Is chronically on prednisone, risk of adrenal insufficiency, status post 1 dose hydrocortisone SVT versus atrial fibrillation -Did not respond to 2 doses of atropine, conservative intervention -Amiodarone bolus, amiodarone drip, converted to normal sinus rhythm -Continue amiodarone drip Chest pain complaints, NSTEMI -No active chest pain -EKGs, serial troponins, telemetry monitoring -Aspirin, statin -Cardiac echo -Heparin drip CHF exacerbation, biventricular heart failure, systolic -Lasix 40 IV twice daily, with albumin, -On Levophed to maintain MAP greater than 65 -Cardiology consulted -Might require pressors to maintain MAP greater than 65 while diuresing -Cardiac echo, as above History of COPD Immunocompromise state with lupus, continue prednisone, hold leflunomide Prediabetes, low-dose sliding scale Full code Heparin drip for DVT prophylaxis Protonix for GI prophylaxis Plan for today IV diuresis, continue Levophed, n.p.o. midnight, events as above PDMP PDMP Reviewed: Not Reviewed Attestations 2 Medical Necessity Statement*: Patient requires hospitalization for SVT versus atrial fibrillation, acute CHF exacerbation, cardiogenic shock, Coding Level of Care Code Critical Care >/= 30 minutes Critical care time (in minutes): 50 The high probability of a clinically significant, sudden or life threatening deterioration, as referenced in this documentation, required my full and direct attention, intervention and personal management. The critical care time shown is in addition to time spent performing any reported separately billable procedures and includes the following: [x] Data and vital sign review and interpretation [x ] Patient assessment, examination and intervention [x] Medication orders and management [x] Patient/Family updates as able [x] Care Coordination and Documentation. Diagnoses Acute respiratory failure J96.00 Sepsis A41.9 Sepsis acute organ dysfunction status: unspecified Sepsis type: sepsis due to unspecified organism Congestive heart failure I50.9 Shock R57.9 Pneumonia J18.9 Laterality: unspecified laterality Lung location: unspecified part of lung Pneumonia type: due to unspecified organism Systemic lupus erythematosus (SLE) in adult M32.9 Immunosuppression D89.9 Hyperlipidemia E78.5 NSTEMI (non-ST elevated myocardial infarction) I21.4
[2024-06-08] MEDS: magnesium lactate 84 mg Tablet PO ×2 (16:30→18:08)
[2024-06-08] MEDS: saline nasal spray 44mL Btl 1 SPRAY NASAL (16:30)
[2024-06-08] MEDS: acetaminophen 325 mg Tablet 650 MG PO (16:40)
[2024-06-08 16:43] LABS: Partial Thromboplastin Time 68.7 SECONDS (23.9-36.7)
[2024-06-08 16:45] LABS: Anion Gap 18.4 (5-19); Blood Urea Nitrogen 28 mg/dL (8-23); Carbon Dioxide 25 mmol/L (22-29); Chloride 94 mmol/L (98-107); Creatinine Clr Calc Pharmacy 53.1932; Glomerular Filtration Rate 62.6 mL/min (90-130); Glucose 128 mg/dL (65-115); Magnesium 1.7 mg/dL (1.7-2.3); Osmolality Calculated 283 mOsm/kg (285-295); Potassium 4.4 mmol/L (3.5-5.1); Sodium 133 mmol/L (136-145)
[2024-06-08 17:55] LABS: Glucose Point of Care 132 mg/dL (70-110)
[2024-06-08] MEDS: polyethylene glycol 3350 Pkt 17 gm PO (18:08)
[2024-06-08] MEDS: budesonide 0.5 mg/2 mL Neb INHALATION (19:55)
[2024-06-08] MEDS: VANCOMYCIN ADD-Vantage 750 MG in 0.9% NaCl ADD-Vantage 250 ML 250 MG IV (20:00)
[2024-06-08] MEDS: morphine 4 mg/mL SDV 1 mL 2 MG IVP (20:10)
[2024-06-08] MEDS: atorvastatin 40 mg Tablet PO (21:08)
[2024-06-08 21:46] LABS: Glucose Point of Care 138 mg/dL (70-110)
[2024-06-09] VITALS (99 sets, daily range): BP systolic 77–135; BP diastolic 52–90; PULSE 60–86; RESP 1–27; TEMP 36.4–36.7; O2SAT 77–100
[2024-06-09] MEDS: ondansetron 2 mg/ML SDV 2 mL 4 MG IVP ×2 (00:01→04:03)
--- NOTE | 2024-06-09 00:13 | ECG_ITS ---
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 Measurements Intervals Worden Rate: 81 P: -22 WI: 182 QRS: 45 QRSD: 124 T: 180 QT: 386 QTc: 450 Interpretive Statements SINUS RHYTHM WITH OCCASIONAL VENTRICULAR PREMATURE COMPLEXES RIGHT BUNDLE BRANCH BLOCK [120+ ms QRS DURATION, UPRIGHT V1, 40+ ms S IN I/aVL/V4/V5/V6] ST DEPRESSION, CONSIDER SUBENDOCARDIAL INJURY [0.1+ mV ST DEPRESSION] Compared to ECG 06/08/2024 12:37:15 Right bundle-branch block now present ST (T wave) deviation now present Intraventricular conduction delay no longer present Electronically Signed On 06-10-2024 18:18:43 CDT by Bubba Beuno M.D. [email or web address] [id number]
--- NOTE | 2024-06-09 00:43 | XRR_ITS ---
PROCEDURE INFORMATION: Exam: XR Chest Exam date and time: 06/09/2024 12:48 AM Age: 64 years old Clinical indication: Other: Possible aspiration TECHNIQUE: Imaging protocol: Radiologic exam of the chest. Views: 1 view. COMPARISON: CR XR chest 1V portable [id number] 06/07/2024 1:44 PM FINDINGS: Tubes, catheters and devices: Right upper extremity PICC line in satisfactory position, tip projecting over the lower SVC. Lungs: Hyperinflation with mild lower lung atelectasis/scarring. No identified focal infiltrate or consolidation. Pleural spaces: Unremarkable. No pleural effusion. No pneumothorax. Heart/Mediastinum: Severe cardiomegaly. Bones/joints: Unremarkable. XR/XR chest 1V portable [id number] IMPRESSION: 1. No identified findings to suggest aspiration. 2. Severe cardiomegaly without overt CHF.
[2024-06-09 00:54] LABS: ABG PCO2 45.2 mmHg (35-45); ABG PH Result 7.42 (7.35-7.45); Alveolar-Arterial Oxygen Gradi 0.8 mmHg (5-10); Arterial Blood Gas Hematocrit 45.1 % (37-47); Base Excess ABG 3.9 mmol/L (-2.0-2.0); Blood Gas Allen Test Pos; Blood Gas Operator Identificat ED; Blood Gas Sample Site Radial, left; Blood Gas Sample Type Arterial; HCO3 ABG 29.2 mmol/L (22-26); Ionized Calcium Level - ABG 1.1 mmol/L (1.1-1.4); Methemoglobin 0.7 % (0.4-1.5); Oxygen Device OXY MASK; Oxygen Saturation ABG 96.7; PO2 ABG 87.5 mmHg (80.0-100.0); Total Hemoglobin 14.7 g/dL (12-16)
[2024-06-09] MEDS: piperacillin-tazobactam 3.375 GM in sodium chloride 0.9% (plus) 50 ML IV ×4 (00:55→23:32)
--- NOTE | 2024-06-09 01:00 | PC.NURSE ---
Vomiting/Chest Pressure At around 0015, patient complained of nausea then vomited one time. While administering zofran, patient stated that she had chest pressure all across her chest. When asked if she had chest pain or pain anywhere else, patient stated no, just heaviness right here while pointing to center of chest. EKG performed. Following EKG, patient stated chest tightness dissipated, however, patient then complaining of shortness of breath. Nasal cannula titrated up to 6 L, oxygen probe saturation reading high 70s-low 80s. RT called to bedside. Dr. Melendez notified of symptoms, no new orders received. RT at bedside, oxymask placed on patient at [address] Justice contacted; orders received for chest xray, ABG, and heated high flow. Dr. Melendez updated on orders.
[2024-06-09] MEDS: morphine 4 mg/mL SDV 1 mL 2 MG IVP (01:21)
--- NOTE | 2024-06-09 01:45 | PC.NURSE ---
Darrianx While RT at bedside attempting to find right heated high flow settings, patient stating that she can't handle this hot air, it's too hot and something has to be done about this while also stating that this is ridiculous, when I get rid of one thing, another one just gets piled on. Education provided on necessary oxygen requirements and potential consequences of hypoxemia. RT changed heating settings, patient informed. Patient still complains of being uncomfortable and in pain. Morphine administered per MAY. Dr. Justice contacted; order received for precedex drip.
[2024-06-09] MEDS: dexmedeTOMIDine 0.9 % NaCL 400 MCG/100 ML PREMIX IV (02:09)
[2024-06-09 04:15] LABS: Basophils % 0.2 %; Eosinophils # 0.1 10^3/uL (0.0-0.8); Eosinophils % 0.6 %; Hematocrit 44.8 % (36-47); Lymphocytes % 19.8 %; Mean Corpuscular Hemoglobin 28.4 pg (27-33); Mean Corpuscular Volume 91.6 fl (85-98); Mean Platelet Volume 10.5 fL (7.4-10.4); Monocytes # 0.7 10^3/uL (0.2-0.9); Monocytes % 7.1 %; Neutrophils # 7.17 10^3/uL (1.8-7.7); Neutrophils % 71.9 %; Nucleated Red Blood Cells % 0.2 %; Platelet Count 156 10^3/cmm (157-399); Red Blood Count 4.89 10^6/uL (3.85-5.65); Red Cell Distribution Width 21.4 % (12.1-15.1); White Blood Count 9.97 10^3/uL (3.29-11.43)
--- NOTE | 2024-06-09 05:50 | PC.NURSE ---
Nausea Patient complaining of nausea despite zofran administration. Dr. Justice contacted and order received for 10 mg compazine IVP once.
[2024-06-09 06:13] LABS: Partial Thromboplastin Time 72.4 SECONDS (23.9-36.7)
[2024-06-09 06:28] LABS: Alanine Aminotransferase 19 U/L (0-33); Albumin Level 3.7 g/dL (3.5-5.2); Alkaline Phosphatase 94 U/L (35-105); Anion Gap 16.1 (5-19); Aspartate Amino Transferase 16 U/L (0-32); Blood Urea Nitrogen 35 mg/dL (8-23); Calcium 8.6 mg/dL (8.5-10.5); Carbon Dioxide 29 mmol/L (22-29); Chloride 93 mmol/L (98-107); Creatinine Clr Calc Pharmacy 40.0405; Globulin 2.6 g/dL (1.3-4.6); Glomerular Filtration Rate 44.9 mL/min (90-130); Glucose 115 mg/dL (65-115); Magnesium 1.7 mg/dL (1.7-2.3); NT Pro B Type Natriuretic Pept 4581 pg/mL (0-125); Osmolality Calculated 287 mOsm/kg (285-295); Phosphorus 3.8 mg/dL (2.5-4.5); Potassium 4.1 mmol/L (3.5-5.1); Sodium 134 mmol/L (136-145); Total Protein 6.3 g/dL (6.6-8.7)
[2024-06-09] MEDS: prochlorperazine 10 mg/2 mL Inj IVP (06:54)
[2024-06-09] MEDS: VANCOMYCIN ADD-Vantage 750 MG in 0.9% NaCl ADD-Vantage 250 ML 250 MG IV ×2 (07:08→18:41)
--- NOTE | 2024-06-09 07:30 | PC.NURSE ---
Dr. Melendez to bedside, patient assessed and chart reviewed. Heart cath cancelled for today, states due to increased O2 demands and patient condition he will reassess her through the weekend and do a heart cath on Wednesday if patient status has improved.
[2024-06-09 08:20] LABS: Glucose Point of Care 114 mg/dL (70-110)
--- NOTE | 2024-06-09 08:30 | PC.SOCIAL ---
IMM Update Pg. 2 of IMM updated and copy provided at bedside.
[2024-06-09] MEDS: ipratropium-albuterol 3 mL Neb INHALATION ×4 (08:32→19:52)
[2024-06-09] MEDS: budesonide 0.5 mg/2 mL Neb INHALATION ×2 (08:32→19:52)
[2024-06-09] MEDS: FUROsemide 10 mg/mL SDV 4mL 40 MG IVP (08:44)
[2024-06-09] MEDS: pantoprazole 40 mg SDV IVP ×2 (08:44→20:00)
[2024-06-09] MEDS: magnesium lactate 84 mg Tablet PO ×2 (08:49→18:01)
[2024-06-09] MEDS: predniSONE 10 mg Tablet PO (08:49)
[2024-06-09] MEDS: aspirin 81 mg EC Tablet PO (08:49)
--- NOTE | 2024-06-09 09:19 | CT_ITS ---
WS: [id number] CT ABDOMEN AND PELVIS NONCONTRAST HISTORY: N/V abdominal pain TECHNIQUE: Imaging performed through the abdomen and pelvis. Coronal and sagittal reformats are submitted. All CT scans at [facility] use at least one of these dose optimization techniques: automated exposure control; mA and/or kV adjustment per patient size (includes targeted exams where dose is matched to clinical indication); or iterative reconstruction. DLP: 309.48 mGy.cm COMPARISON: None available. Lower thorax: Severe cardiomegaly. Very small pericardial effusion. Mild dependent changes and opacifications at the lung bases. Small RIGHT pleural effusion with adjacent atelectasis. Pleural effusion has slightly decreased since 06/06/2024. Liver: Liver slightly enlarged. Very mild heterogeneous appearance of the liver without IV contrast. Suspect hepatic congestion. Gallbladder: Well-distended gallbladder. Variable attenuation within the gallbladder may be due to gallbladder stasis and sludge. Pancreas: Normal size and attenuation. Normal pancreatic duct. No pancreatitis or mass. Spleen: Normal size with granulomata. Adrenal glands: Normal. No mass. Right kidney: Low-attenuation 14 mm mass central kidney may be a small cyst but cannot be characterized completely. No renal obstruction. Left kidney: Normal size with no obstruction. Aorta: Moderate to severe atherosclerosis abdominal aorta. No aneurysm. Atherosclerosis continues into the common iliac arteries. Small amount of ascites adjacent to the liver and extending into the pelvis. This is a very small amount of fluid. Mild mesenteric edema and anasarca. GI tract: Stomach is not distended. No small bowel obstruction. Marked fecal retention in the colon. Most significant constipation in the cecum and transverse colon. Appendix is not identified. Abdominal wall: Small umbilical hernia contains fat only. Pelvis: Urinary bladder is well distended. There is a Chandler catheter within the bladder. Bladder remains slightly distended. There is small amount of free fluid in the pelvis. Osseous structures: Healed fractures LEFT pubic rami. CT/CT abdomen pelvis wo con [id number] IMPRESSION: 1. Marked cardiomegaly. Dependent changes at the lung bases. 2. Small amount of ascites with mesenteric edema and some anasarca. 3. No GI tract obstruction. 4. Marked fecal retention and constipation in the colon. 5. Mild increased attenuation in the gallbladder. May be sludge related to fas ting state. This can be evaluated by ultrasound. 6. Suspect hepatic venous congestion.
[2024-06-09] MEDS: norepinephrine 4 MG/250 ML BAG 7.5 MG IV (09:41)
--- NOTE | 2024-06-09 10:54 | PC.NURSE ---
829 -- Updated Dr. Diehl that Dr. 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 899 -- Dr. Diehl orders KUB since patient had nausea and vomiting during the night and possible aspiration of emesis requiring increased oxygen and continued abdominal tenderness. 929 -- CT of abdomen and pelvis ordered. 939 -- Blood pressure 70/49, notified Dr. Diehl. Order given to hold IV lasix for now and restart levophed. 1000 -- To Cat Scan, CT of abdomen and pelvis done, returned to room via bed. Blood pressure improved.
[2024-06-09] MEDS: methylPREDNISolone sod succ 125 mg/2 mL INJ IVP (11:47)
[2024-06-09 12:27] LABS: Glucose Point of Care 130 mg/dL (70-110)
[2024-06-09 14:20] LABS: Lipase 24 U/L (13-60)
[2024-06-09] MEDS: polyethylene glycol 3350 Pkt 17 gm PO (14:23)
[2024-06-09] MEDS: bisacodyl 5 mg Tablet 10 MG PO (14:23)
[2024-06-09] MEDS: scopolamine 1 mg PATCH 1 PATCH TRANSDERMA (15:02)
--- NOTE | 2024-06-09 15:03 | P.PN_ITS ---
Subjective 2 Subjective: - Overnight events noted -Overnight patient had episode of vomiti ng, and she aspirated her vomit, resulting in complaints of shortness of breath, respiratory failure requiring up to 40% FiO2 on heated high flow -She examined this morning, she denies a ny fevers, no chills, does have a cough, no abdominal pain -Discussed doing a CT scan abdomen pelvi s to rule out any bowel obstruction -She denies any choking, no coughing, as piration precautions will transition her to clears once her CT abdomen pelvis is within normal limits, will consult speech therapy, she understands this -CT scan abdomen pelvis did not show any bowel obstruction, transition to clears -She was seen throughout the afternoon o xygen requirements have decreased to 8 L, is given 1 dose IV steroids for aspiration pneumonitis, continue IV antibiotics -Her angiogram for today has been cancel ed -I spoke to patient and her this afternoon -Discussed patient's clinical status, azeem wilder has acute systolic CHF EF down to 35%, with fluid overload she is diuresed about 5 L, due to her chronically soft blood pressure she is needing Levophed to keep up her blood pressures to help with diuresis -Plan is once her respiratory status imp roves to perform a coronary angiogram to see if she has CAD as an underlying etiology behind her acute systolic CHF -Other possibilities include nonischemic cardiomyopathy, her smoking history or possibly her lupus -We discussed the events overnight, her aspiration event, resulting in aspiration pneumonitis and respiratory failure she is down to 8 L she is feeling better, -Discussed also her A-fib with RVR/SVT e vent, she is back into normal rhythm is on amiodarone Vitals/I&O/Wt Last Vital Signs Temp 98.0 F 06/09/24 12:00 Pulse 64 06/09/24 14:55 Resp 20 H 06/09/24 14:00 BP 101/83 06/09/24 14:00 Pulse Ox 100 06/09/24 14:00 O2 Del Method High Flow Nasal Cannula 06/09/24 14:00 O2 Flow Rate 8 06/09/24 14:00 FiO2 48 06/09/24 08:00 06/09/24 06/09/24 06/09/24 06:59 14:59 22:59 Intake Total 407.337 / 1433.585 434.753 / 434.753 Output Total 500 / 1300 Balance -92.663 / 133.585 434.753 / 434.753 Weight last 48 hrs Weight 52 kg Weight 51.5 kg Physical Exam 2 Const: COMMON NORMALS: no acute distress and patient oriented x3 Resp: COMMON NORMALS: normal respiratory effort, No retractions and No use of accessory muscles AUSCULTATION: crackles and wheezes Cardio: COMMON NORMALS: regular rate, regular rhythm, S1 normal heart sound present and S2 normal heart sound present RATE: regular rate RHYTHM: r egular rhythm HEART SOUNDS: S1 normal heart sound present and S2 normal heart sound present GI: COMMON NORMALS: Normal to inspection, nondistended, normoactive bowel sounds present and non-tender Extremity: COMMON NORMALS: no pedal edema Neuro: COMMON NORMALS: patient oriented x3 Psych: COMMON NORMALS: mental status grossly normal Urinary Catheter Management: Chandler: Cath Placed During This Visit: yes Reason for Continuing Indwelling Catheter: Accurate Measurement of Urinary Output in Critically Ill Patients Urinary Catheter Date of Insertion: 06/07/24 Urinary Catheter Time of Insertion: 12:30 Data 06/09/24 04:00 06/09/24 05:37 A&P Assessment and plan (1) Acute respiratory failure: (2) Sepsis: Qualifiers: Sepsis acute organ dysfunction status: unspecified Sepsis type: sepsis due to unspecified organism Qualified Code(s): A41.9 - Sepsis, unspecified organism (3) Congestive heart failure: (4) Shock: (5) Pneumonia: Qualifiers: Laterality: unspecified laterality Lung location: unspecified part of lung Pneumonia type: due to unspecified organism Qualified Code(s): J18.9 - Pneumonia, unspecified organism (6) Systemic lupus erythematosus (SLE) in adult: (7) Immunosuppression: (8) Hyperlipidemia: (9) NSTEMI (non-ST elevated myocardial infarction): Plan Acute respiratory failure -She does not appear [place] [address], she does have mild bibasilar opacities with trace right pleural effusion -Certainly CHF is playing a role, she is on Lasix, does have increased abdominal distention -Given her immunocompromise state, her recent history of multiple infections, cough, certainly pneumonia and sepsis could be playing a role -COPD also could be playing a role, no active wheezing has received steroids -Now with aspiration event, aspiration pneumonitis CTA CT/CT angio chest PE protcl [id number] IMPRESSION: 1. Constellation of findings is most compelling for heart failure including severe cardiomegaly, bilateral pleural effusions, distension of the superior and inferior vena cava, and small pericardial effusion. 2. Enlarged pulmonary artery tree is compatible with chronic PA hypertension. No findings of acute pulmonary embolism. 3. Advanced arterial disease. No findings of acute aortic dissection. Additional assessment the aorta is limited by contrast bolus timing and patient motion. There is probably high-grade stenosis at the origin of the left subclavian artery. Moderate stenosis of the proximal common carotid arteries noted. Cardiac echo CONCLUSIONS LV systolic function is moderately reduced with EF of 35-40% RV appears dilated and severely hypokinetic. Left atrial dilation Mild mitral regurgitation Mild tricuspid regurgitation. Trace pericardial effusion No comparison studies are available. Plan -Will monitor in ICU -Currently on room 8 L -Given immunocompromise state, history of multiple infections will start her on broad-spectrum antibiotic therapy vancomycin, Zosyn, will likely de-escalate based on clinical progress -Aspiration pneumonitis, scopolamine patch, aspiration precautions, speech therapy eval, 1 dose IV steroids -Blood cultures -Sputum culture -Lasix 40 IV once today -Started on Levophed to maintain MAP in 65 -PICC line -1 dose IV steroids as above -DuoNeb, budesonide Aspiration pneumonitis -Resulting in respiratory failure -CT scan abdomen pelvis does not show any evidence of bowel obstruction -Zofran, Reglan for nausea vomiting -Scopolamine patch -Speech therapy eval -Aspiration precautions Shock -Likely cardiogenic shock given EF of 35% -Component of sepsis also difficult to rule out -Will monitor in ICU -Continue Levophed , maintain MAP more than 65 -Is chronically on prednisone, risk of adrenal insufficiency, status post 1 dose hydrocortisone SVT versus atrial fibrillation -Did not respond to 2 doses of atropine, conservative intervention -Amiodarone bolus, amiodarone drip, converted to normal sinus rhythm -Continue amiodarone drip Chest pain complaints, NSTEMI -No active chest pain -EKGs, serial troponins, telemetry monitoring -Aspirin, statin -Cardiac echo -Heparin drip CHF exacerbation, biventricular heart failure, systolic -Lasix 40 IV twice daily, with albumin, -On Levophed to maintain MAP greater than 65 -Cardiology consulted -Might require pressors to maintain MAP greater than 65 while diuresing -Cardiac echo, as above History of COPD Immunocompromise state with lupus, continue prednisone, hold leflunomide -Potentially lupus could be playing a role in patient's NSTEMI, CHF Prediabetes, low-dose sliding scale Full code Heparin drip for DVT prophylaxis Protonix for GI prophylaxis Plan for today IV diuresis, continue Levophed, IV steroids, IV antibiotics, monitor respiratory status, IV amiodarone, Precedex PDMP PDMP Reviewed: Not Reviewed Attestations 2 Medical Necessity Statement*: Patient requires hospitalization for respiratory failure, aspiration pneumonitis, shock, CHF, NSTEMI, atrial fibrillation, SVT versus A-fib, Coding Level of Care Code Critical Care >/= 30 minutes Critical care time (in minutes): 45 The high probability of a clinically significant, sudden or life threatening deterioration, as referenced in this documentation, required my full and direct attention, intervention and personal management. The critical care time shown is in addition to time spent performing any reported separately billable procedures and includes the following: [x] Data and vital sign review and interpretation [x ] Patient assessment, examination and intervention [x] Medication orders and management [x] Patient/Family updates as able [x] Care Coordination and Documentation. Diagnoses Acute respiratory failure J96.00 Sepsis A41.9 Sepsis acute organ dysfunction status: unspecified Sepsis type: sepsis due to unspecified organism Congestive heart failure I50.9 Shock R57.9 Pneumonia J18.9 Laterality: unspecified laterality Lung location: unspecified part of lung Pneumonia type: due to unspecified organism Systemic lupus erythematosus (SLE) in adult M32.9 Immunosuppression D89.9 Hyperlipidemia E78.5 NSTEMI (non-ST elevated myocardial infarction) I21.4
[2024-06-09 15:05] LABS: Partial Thromboplastin Time 52.6 SECONDS (23.9-36.7)
[2024-06-09] MEDS: heparin 5,000 unit/mL INJ 1 mL IVP (15:22)
--- NOTE | 2024-06-09 16:11 | P.PN_ITS ---
<Statement entered by Davide Melendez MD - 06/10/24 01:18> Patient was evaluated and cared for in conjunction with an advanced practice practitioner. I personally examined the patient and reviewed the chart and all pertinent data including imaging, telemetry, and laboratory results. I discussed the patient in detail with the advanced practice practitioner. Please see their note for complete H&P testing result and agreed upon plan of care for the patient. Patient overnight has episode of nausea vomiting after that she desaturated with possibility of aspiration she was hypoxic, blood pressure is on the lower side requiring pressor but overall stable. GENERAL: Patient is alert, awake and oriented x3. Not in acute distress, HEART: Regular S1 and S2. No murmur, rub or gallop. LUNGS: Decreased breath sound with right side lower crackle CENTRAL NERVOUS SYSTEM: Grossly nonfocal. EXTREMITIES: Lower extremities with out edema bilaterally. New onset of heart failure Non-ST elevation HI LV dysfunction Possible aspirated pneumonia/sepsis Patient need pulmonary toileting with antibiotics administered and suggested by medicine colleagues Once stable and improved from pneumonia perspective will consider left and right heart catheterization since she is not having any active chest pain no arrhythmia Continue aspirin statin heparin Once vital stable may will add beta-татьяна and isosorbide mononitrate Continue to diurese she already got extra 40 mg of Lasix this morning Subjective 2 Subjective: Patient was going for angiogram today, but decomensated during the night requiring high flow nasal cannula. It was thought that she may have aspirated. She is resting without complaints at the time of my assessment. Creatinine had a slight bump at 1.2. BP also dropped requiring Levo. Vitals/I&O/Wt Last Vital Signs Temp 98.0 F 06/09/24 12:00 Pulse 69 06/09/24 15:37 Resp 16 06/09/24 15:37 BP 106/74 06/09/24 15:02 Pulse Ox 96 06/09/24 15:37 O2 Del Method High Flow Nasal Cannula 06/09/24 15:37 O2 Flow Rate 7 06/09/24 15:37 FiO2 48 06/09/24 08:00 06/09/24 06/09/24 06/09/24 06:59 14:59 22:59 Intake Total 407.337 / 1433.585 447.027 / 447.027 118.517 / 565.544 Output Total 500 / 1300 Balance -92.663 / 133.585 447.027 / 447.027 118.517 / 565.544 Weight last 48 hrs Weight 114 lb 10.246 oz Weight 113 lb 8.609 oz Physical Exam 2 Narrative: General: No apparent distress, healthy appearing, well nourished HENMT: normoceophalic Muskuloskeletal: Full ROM Lymphatic: no lymphedema noted Respiratory: Normal respiratory effort, clear throughout all lung pena, no use of accessory muscles Cardio: No JVD, regular rate, regular rhythm, S1 S2 normal, no murmurs, peripheral pulses 2+ radial palpated bilaterally GI: abdomen is moderately distended Extremities: Full ROM, normal, normal capillary refill, no cyanosis or edema Neuro: Alert and oriented x4, no focal motor deficits Psych: Affect normal, denies suicidal ideation, mental status grossly normal Skin: No rashes or lesions noted, no wounds Urinary Catheter Management: Chandler: Cath Placed During This Visit: yes Reason for Continuing Indwelling Catheter: Accurate Measurement of Urinary Output in Critically Ill Patients Urinary Catheter Date of Insertion: 06/07/24 Urinary Catheter Time of Insertion: 12:30 Data 06/09/24 04:00 06/09/24 05:37 A&P Assessment and plan (1) Acute respiratory failure: (2) Sepsis: Qualifiers: Sepsis acute organ dysfunction status: unspecified Sepsis type: sepsis due to unspecified organism Qualified Code(s): A41.9 - Sepsis, unspecified organism (3) Congestive heart failure: (4) Shock: (5) Pneumonia: Qualifiers: Laterality: unspecified laterality Lung location: unspecified part of lung Pneumonia type: due to unspecified organism Qualified Code(s): J18.9 - Pneumonia, unspecified organism (6) Systemic lupus erythematosus (SLE) in adult: (7) Immunosuppression: (8) Hyperlipidemia: (9) NSTEMI (non-ST elevated myocardial infarction): Plan At this time, due to patient having respiratory decompensation, will hold off on [facility] for now. Agree with holding diuresis, as patient has had an increase in creatinine as well as does not appear to be volume overloaded. Will continue to monitor, and once more stable from a respiratory standpoint will proceed with [facility]. PDMP PDMP Reviewed: Not Reviewed Attestations 2 Medical Necessity Statement*: Deferred to primary. Coding Level of Care Code Acute Code for Chg Fwd Diagnoses Acute respiratory failure J96.00 Sepsis A41.9 Sepsis acute organ dysfunction status: unspecified Sepsis type: sepsis due to unspecified organism Congestive heart failure I50.9 Shock R57.9 Pneumonia J18.9 Laterality: unspecified laterality Lung location: unspecified part of lung Pneumonia type: due to unspecified organism Systemic lupus erythematosus (SLE) in adult M32.9 Immunosuppression D89.9 Hyperlipidemia E78.5 NSTEMI (non-ST elevated myocardial infarction) I21.4
[2024-06-09 16:39] LABS: Blood Urea Nitrogen 34 mg/dL (8-23); Calcium 8.1 mg/dL (8.5-10.5); Carbon Dioxide 26 mmol/L (22-29); Chloride 90 mmol/L (98-107); Creatinine Clr Calc Pharmacy 48.0486; Glomerular Filtration Rate 55.5 mL/min (90-130); Glucose 220 mg/dL (65-115); Osmolality Calculated 282 mOsm/kg (285-295); Sodium 129 mmol/L (136-145)
[2024-06-09 16:40] LABS: Anion Gap 18.8 (5-19); Potassium 5.8 mmol/L (3.5-5.1)
[2024-06-09] MEDS: insulin lispro 100 unit/1 mL SUBCUT (18:01)
[2024-06-09 18:09] LABS: Vancomycin Trough 17.2 ug/mL (10-15)
[2024-06-09 18:10] LABS: Glucose Point of Care 171 mg/dL (70-110)
[2024-06-09] MEDS: heparin drip 25,000 UNIT/500 ML PREMIX 14 UNIT IV (18:25)
[2024-06-09] MEDS: atorvastatin 40 mg Tablet PO (19:59)
[2024-06-09] MEDS: dexmedeTOMIDine 0.9 % NaCL 400 MCG/100 ML PREMIX 5.15 MCG IV (20:24)
[2024-06-09 22:56] LABS: Glucose Point of Care 174 mg/dL (70-110)
[2024-06-09 23:11] LABS: Partial Thromboplastin Time 65.7 SECONDS (23.9-36.7)
[2024-06-09] MEDS: norepinephrine 4 MG/250 ML BAG 15 MG IV (23:23)
[2024-06-10] VITALS (94 sets, daily range): BP systolic 67–134; BP diastolic 46–91; PULSE 57–79; RESP 12–38; TEMP 35.7–36.9; O2SAT 73–100
[2024-06-10 04:14] LABS: Basophils % 0.1 %; Hematocrit 42.5 % (36-47); Lymphocytes # 0.9 10^3/uL (0.8-4.8); Lymphocytes % 10.8 %; Mean Corpuscular HGB Conc 31.8 g/dL (30-55); Mean Corpuscular Hemoglobin 29.1 pg (27-33); Mean Corpuscular Volume 91.6 fl (85-98); Mean Platelet Volume 9.7 fL (7.4-10.4); Monocytes # 0.5 10^3/uL (0.2-0.9); Monocytes % 5.7 %; Nucleated Red Blood Cells % 0 %; Platelet Count 168 10^3/cmm (157-399); Red Blood Count 4.64 10^6/uL (3.85-5.65); Red Cell Distribution Width 20.9 % (12.1-15.1); White Blood Count 8.07 10^3/uL (3.29-11.43)
[2024-06-10 05:37] LABS: Partial Thromboplastin Time 58.9 SECONDS (23.9-36.7)
[2024-06-10 05:44] LABS: Alanine Aminotransferase 16 U/L (0-33); Albumin Level 3.5 g/dL (3.5-5.2); Alkaline Phosphatase 79 U/L (35-105); Anion Gap 13.4 (5-19); Aspartate Amino Transferase 15 U/L (0-32); Blood Urea Nitrogen 33 mg/dL (8-23); Calcium 8.5 mg/dL (8.5-10.5); Carbon Dioxide 30 mmol/L (22-29); Chloride 93 mmol/L (98-107); Creatinine Clr Calc Pharmacy 43.6806; Globulin 2.7 g/dL (1.3-4.6); Glomerular Filtration Rate 49.7 mL/min (90-130); Glucose 143 mg/dL (65-115); NT Pro B Type Natriuretic Pept 3427 pg/mL (0-125); Osmolality Calculated 284 mOsm/kg (285-295); Phosphorus 4.3 mg/dL (2.5-4.5); Potassium 4.4 mmol/L (3.5-5.1); Sodium 132 mmol/L (136-145); Total Bilirubin 1.2 mg/dL (0.15-1.2); Total Protein 6.2 g/dL (6.6-8.7)
[2024-06-10] MEDS: VANCOMYCIN ADD-Vantage 750 MG in 0.9% NaCl ADD-Vantage 250 ML 250 MG IV ×2 (06:10→18:30)
--- NOTE | 2024-06-10 07:00 | XRR_ITS ---
PROCEDURE INFORMATION: Exam: XR Chest Exam date and time: 06/10/2024 9:11 AM Age: 64 years old Clinical indication: Shortness of breath; Additional info: SOB TECHNIQUE: Imaging protocol: Radiologic exam of the chest. Views: 1 view. COMPARISON: CR (CHEST, ) 06/09/2024 12:48 AM FINDINGS: Tubes, catheters and devices: The tip of a right arm PICC projects in the SVC. Lungs: There is patchy bibasilar atelectasis similar to previous examinations. Pleural spaces: Unremarkable. No pleural effusion. No pneumothorax. Heart/Mediastinum: The cardiac silhouette is enlarged but unchanged. The aortic arch is calcified. Bones/joints: Unremarkable. XR/XR chest 1V portable [id number] IMPRESSION: 1. Stable prominent cardiomegaly. 2. Stable bibasilar atelectasis.
[2024-06-10] MEDS: budesonide 0.5 mg/2 mL Neb INHALATION ×2 (08:06→20:22)
[2024-06-10] MEDS: ipratropium-albuterol 3 mL Neb INHALATION ×3 (08:06→20:22)
[2024-06-10 09:08] LABS: Glucose Point of Care 157 mg/dL (70-110)
[2024-06-10] MEDS: piperacillin-tazobactam 3.375 GM in sodium chloride 0.9% (plus) 50 ML IV ×2 (09:18→15:34)
[2024-06-10] MEDS: pantoprazole 40 mg SDV IVP ×2 (09:18→20:23)
[2024-06-10] MEDS: magnesium lactate 84 mg Tablet PO ×2 (09:21→17:43)
[2024-06-10] MEDS: aspirin 81 mg EC Tablet PO (09:22)
[2024-06-10] MEDS: bisacodyl 5 mg Tablet 10 MG PO (09:22)
[2024-06-10] MEDS: polyethylene glycol 3350 Pkt 17 gm PO ×2 (09:22→20:24)
[2024-06-10] MEDS: predniSONE 10 mg Tablet PO (09:22)
[2024-06-10 12:38] LABS: Glucose Point of Care 128 mg/dL (70-110)
[2024-06-10] MEDS: ALPRAZolam 0.5 mg Tablet 0.25 MG PO ×2 (13:44→22:36)
--- NOTE | 2024-06-10 14:08 | P.PN_ITS ---
Subjective 2 Subjective: Today feeling better she is on Levophed blood pressure is stable Breathing better laying in the bed denies any chest pain creatinine has also improved Vitals/I&O/Wt Last Vital Signs Temp 96.2 F L 06/10/24 07:29 Pulse 64 06/10/24 12:00 Resp 18 06/10/24 12:00 BP 133/84 06/10/24 10:15 Pulse Ox 93 06/10/24 12:00 O2 Del Method High Flow Nasal Cannula 06/10/24 12:00 O2 Flow Rate 4 06/10/24 12:00 FiO2 48 06/09/24 08:00 06/09/24 06/10/24 06/10/24 22:59 06:59 14:59 Intake Total 1361.899 / 1813.176 316.516 / 2129.692 344.25 / 344.25 Output Total 900 / 900 675 / 1575 Balance 461.899 / 913.176 -358.484 / 554.692 344.25 / 344.25 Weight last 48 hrs Weight 116 lb 13.52 oz Weight 114 lb 10.246 oz Physical Exam 2 Const: OTHER: GENERAL: Patient is alert, awake and oriented x3. HEART: Regular S1 and S2. Faint murmur systolic LUNGS: No crackles on the right lower lobe which was heard yesterday CENTRAL NERVOUS SYSTEM: Grossly nonfocal. EXTREMITIES: Lower extremities with out edema bilaterally. Urinary Catheter Management: Cahndler: Cath Placed During This Visit: yes Reason for Continuing Indwelling Catheter: Accurate Measurement of Urinary Output in Critically Ill Patients Urinary Catheter Date of Insertion: 06/07/24 Urinary Catheter Time of Insertion: 12:30 Data 06/10/24 03:57 06/10/24 05:05 A&P Assessment and plan (1) Acute respiratory failure: (2) Sepsis: Qualifiers: Sepsis acute organ dysfunction status: unspecified Sepsis type: sepsis due to unspecified organism Qualified Code(s): A41.9 - Sepsis, unspecified organism (3) Congestive heart failure: (4) Shock: (5) Pneumonia: Qualifiers: Laterality: unspecified laterality Lung location: unspecified part of lung Pneumonia type: due to unspecified organism Qualified Code(s): J18.9 - Pneumonia, unspecified organism (6) Systemic lupus erythematosus (SLE) in adult: (7) Immunosuppression: (8) Hyperlipidemia: (9) NSTEMI (non-ST elevated myocardial infarction): Plan Patient appeared to be euvolemic agree with holding Lasix Continue IV antibiotics Once continues to be euvolemic with normal creatinine which she has already hopefully possibility of left heart cath by Wednesday or Wednesday Recommend aspirin statin and anticoagulation in the form of heparin PDMP PDMP Reviewed: Not Reviewed Attestations 2 Medical Necessity Statement*: As per medicine Coding Level of Care Code Acute Code for [facility] Fwd Diagnoses Acute respiratory failure J96.00 Sepsis A41.9 Sepsis acute organ dysfunction status: unspecified Sepsis type: sepsis due to unspecified organism Congestive heart failure I50.9 Shock R57.9 Pneumonia J18.9 Laterality: unspecified laterality Lung location: unspecified part of lung Pneumonia type: due to unspecified organism Systemic lupus erythematosus (SLE) in adult M32.9 Immunosuppression D89.9 Hyperlipidemia E78.5 NSTEMI (non-ST elevated myocardial infarction) I21.4
--- NOTE | 2024-06-10 14:37 | P.PN_ITS ---
Subjective 2 Subjective: Patient was seen this morning, she is alert oriented x 3, following all commands, reports persistent shortness of breath, she has not had a bowel movement, no chest pain, no palpitations, does feel bloated, I also had a discussion with patient and her daughter at bedside, discussed patient's low EF, patient's systolic CHF, aspiration event, plans on coronary angiography once her respiratory status is stable Vitals/I&O/Wt Last Vital Signs Temp 96.2 F L 06/10/24 07:29 Pulse 64 06/10/24 12:00 Resp 18 06/10/24 12:00 BP 133/84 06/10/24 10:15 Pulse Ox 93 06/10/24 12:00 O2 Del Method High Flow Nasal Cannula 06/10/24 12:00 O2 Flow Rate 4 06/10/24 12:00 FiO2 48 06/09/24 08:00 06/09/24 06/10/24 06/10/24 22:59 06:59 14:59 Intake Total 1361.899 / 1813.176 316.516 / 2129.692 344.25 / 344.25 Output Total 900 / 900 675 / 1575 Balance 461.899 / 913.176 -358.484 / 554.692 344.25 / 344.25 Weight last 48 hrs Weight 53 kg Weight 52 kg Physical Exam 2 Const: COMMON NORMALS: no acute distress and patient oriented x3 Resp: COMMON NORMALS: normal respiratory effort, No retractions and No use of accessory muscles AUSCULTATION: crackles and wheezes Cardio: COMMON NORMALS: regular rate, regular rhythm, S1 normal heart sound present and S2 normal heart sound present RATE: regular rate RHYTHM: r egular rhythm HEART SOUNDS: S1 normal heart sound present and S2 normal heart sound present GI: COMMON NORMALS: Normal to inspection, nondistended, normoactive bowel sounds present and non-tender Extremity: COMMON NORMALS: no pedal edema Neuro: COMMON NORMALS: patient oriented x3 Psych: COMMON NORMALS: mental status grossly normal Urinary Catheter Management: Chandler: Cath Placed During This Visit: yes Reason for Continuing Indwelling Catheter: Accurate Measurement of Urinary Output in Critically Ill Patients Urinary Catheter Date of Insertion: 06/07/24 Urinary Catheter Time of Insertion: 12:30 Data 06/10/24 03:57 06/10/24 05:05 A&P Assessment and plan (1) Acute respiratory failure: (2) Sepsis: Qualifiers: Sepsis acute organ dysfunction status: unspecified Sepsis type: sepsis due to unspecified organism Qualified Code(s): A41.9 - Sepsis, unspecified organism (3) Congestive heart failure: (4) Shock: (5) Pneumonia: Qualifiers: Laterality: unspecified laterality Lung location: unspecified part of lung Pneumonia type: due to unspecified organism Qualified Code(s): J18.9 - Pneumonia, unspecified organism (6) Systemic lupus erythematosus (SLE) in adult: (7) Immunosuppression: (8) Hyperlipidemia: (9) NSTEMI (non-ST elevated myocardial infarction): Plan Acute respiratory failure - Not fluid overloaded today -Certainly CHF is playing a role, Lasix currently on hold -Given her immunocompromise state, her recent history of multiple infections, cough, certainly pneumonia and sepsis could be playing a role -COPD also could be playing a role, no active wheezing has received steroids -Now with aspiration event, aspiration pneumonitis CTA CT/CT angio chest PE protcl [id number] IMPRESSION: 1. Constellation of findings is most compelling for heart failure including severe cardiomegaly, bilateral pleural effusions, distension of the superior and inferior vena cava, and small pericardial effusion. 2. Enlarged pulmonary artery tree is compatible with chronic PA hypertension. No findings of acute pulmonary embolism. 3. Advanced arterial disease. No findings of acute aortic dissection. Additional assessment the aorta is limited by contrast bolus timing and patient motion. There is probably high-grade stenosis at the origin of the left subclavian artery. Moderate stenosis of the proximal common carotid arteries noted. Cardiac echo CONCLUSIONS LV systolic function is moderately reduced with EF of 35-40% RV appears dilated and severely hypokinetic. Left atrial dilation Mild mitral regurgitation Mild tricuspid regurgitation. Trace pericardial effusion No comparison studies are available. Plan -Will monitor in ICU -Currently on room 4L -Given immunocompromise state, history of multiple infections will start her on broad-spectrum antibiotic therapy vancomycin, Zosyn, will likely de-escalate based on clinical progress -Aspiration pneumonitis, scopolamine patch, aspiration precautions, speech therapy eval, 1 dose IV steroids -Blood cultures -Sputum culture -Lasix currently on hold -Started on Levophed to maintain MAP in 65 -PICC line -[place], budesonide Aspiration pneumonitis -Resulting in respiratory failure -CT scan abdomen pelvis does not show any evidence of bowel obstruction -Riki Spicer for nausea vomiting -Scopolamine patch -Speech therapy eval -Aspiration precautions Shock -Likely cardiogenic shock given EF of 35% -Component of sepsis also difficult to rule out -Will monitor in ICU -Continue Levophed , maintain MAP more than 65 -Is chronically on prednisone, risk of adrenal insufficiency, status post 1 dose hydrocortisone SVT versus atrial fibrillation -Did not respond to 2 doses of atropine, conservative intervention -Amiodarone bolus, amiodarone drip, converted to normal sinus rhythm - Transition to p.o. amiodarone Chest pain complaints, NSTEMI -No active chest pain -EKGs, serial troponins, telemetry monitoring -Aspirin, statin -Cardiac echo CONCLUSIONS LV systolic function is moderately reduced with EF of 35-40% RV appears dilated and severely hypokinetic. Left atrial dilation Mild mitral regurgitation Mild tricuspid regurgitation. Trace pericardial effusion No comparison studies are available. -Heparin drip CHF exacerbation, biventricular heart failure, systolic -Lasix 40 IV twice daily, with albumin, currently on hold as patient is euvolemic -On Levophed to maintain MAP greater than 65 -Cardiology consulted -Might require pressors to maintain MAP greater than 65 while diuresing -Cardiac echo, as above History of COPD Immunocompromise state with lupus, continue prednisone, hold leflunomide -Potentially lupus could be playing a role in patient's NSTEMI, CHF Prediabetes, low-dose sliding scale Full code Heparin drip for DVT prophylaxis Protonix for GI prophylaxis Plan for today wean off Levophed, IV antibiotics, monitor respiratory status closely, heparin drip, spoke to patient, spoke to nursing staff, spoke to patient's daughter, spoke to cardiology PDMP PDMP Reviewed: Not Reviewed Attestations 2 Medical Necessity Statement*: Patient requires hospitalization for shock, aspiration pneumonitis, respiratory failure, NSTEMI, Coding Level of Care Code Critical Care >/= 30 minutes Critical care time (in minutes): 45 The high probability of a clinically significant, sudden or life threatening deterioration, as referenced in this documentation, required my full and direct attention, intervention and personal management. The critical care time shown is in addition to time spent performing any reported separately billable procedures and includes the following: [x] Data and vital sign review and interpretation [x ] Patient assessment, examination and intervention [x] Medication orders and management [x] Patient/Family updates as able [x] Care Coordination and Documentation. Diagnoses Acute respiratory failure J96.00 Sepsis A41.9 Sepsis acute organ dysfunction status: unspecified Sepsis type: sepsis due to unspecified organism Congestive heart failure I50.9 Shock R57.9 Pneumonia J18.9 Laterality: unspecified laterality Lung location: unspecified part of lung Pneumonia type: due to unspecified organism Systemic lupus erythematosus (SLE) in adult M32.9 Immunosuppression D89.9 Hyperlipidemia E78.5 NSTEMI (non-ST elevated myocardial infarction) I21.4
[2024-06-10] MEDS: dexmedeTOMIDine 0.9 % NaCL 400 MCG/100 ML PREMIX 6.44 MCG IV (15:33)
[2024-06-10 16:22] LABS: Partial Thromboplastin Time 50.7 SECONDS (23.9-36.7)
[2024-06-10 17:35] LABS: Glucose Point of Care 138 mg/dL (70-110)
[2024-06-10] MEDS: amiodarone 200 mg Tablet PO (17:43)
[2024-06-10] MEDS: norepinephrine 4 MG/250 ML BAG 15 MG IV (18:28)
[2024-06-10] MEDS: atorvastatin 40 mg Tablet PO (20:24)
[2024-06-10 22:36] LABS: Glucose Point of Care 118 mg/dL (70-110)
[2024-06-10 22:56] LABS: Partial Thromboplastin Time 62.2 SECONDS (23.9-36.7)
[2024-06-11] VITALS (54 sets, daily range): BP systolic 84–175; BP diastolic 53–131; PULSE 61–86; RESP 14–34; TEMP 36.4; O2SAT 75–97
[2024-06-11] MEDS: acetaminophen 325 mg Tablet 650 MG PO (00:30)
[2024-06-11] MEDS: piperacillin-tazobactam 3.375 GM in sodium chloride 0.9% (plus) 50 ML IV ×3 (00:30→16:36)
--- NOTE | 2024-06-11 01:00 | PC.NURSE ---
Unable to get accurate reading on pt pulse ox on monitor. Checked with manual pulse ox and was reading in low 70's on 15 liters HFNC, respiratory obtained an ABG and notified Dr. Justice. Pt is now on heated high flow 60 liters/100% fio2 and with o2 saturation of 93%.
[2024-06-11 01:27] LABS: ABG PCO2 46.2 mmHg (35-45); ABG PH Result 7.39 (7.35-7.45); Alveolar-Arterial Oxygen Gradi 7.3 mmHg (5-10); Arterial Blood Gas Hematocrit 39.3 % (37-47); Base Excess ABG 2.4 mmol/L (-2.0-2.0); Blood Gas Operator Identificat SAM; Blood Gas Sample Site Brachial, left; Blood Gas Sample Type Arterial; HGB O2 Sat 63.9 % (95-100); Ionized Calcium Level - ABG 1.2 mmol/L (1.1-1.4); Methemoglobin 0.4 % (0.4-1.5); Oxygen Device NC; Oxygen Saturation ABG 64.8; PO2 ABG 37.5 mmHg (80.0-100.0); Total Hemoglobin 12.8 g/dL (12-16)
--- NOTE | 2024-06-11 02:16 | PC.NURSE ---
0100 - Unable to get accurate reading on pt pulse ox on monitor. Checked with manual pulse ox and was reading in low 70's on 15 liters HFNC, respiratory obtained an ABG and notified Dr. Justice. 0130-Pt is now on heated high flow 60 liters/100% fio2 and with o2 saturation of 91%.
[2024-06-11 04:12] LABS: Basophils % 0.1 %; Eosinophils % 0.3 %; Hematocrit 39.7 % (36-47); Lymphocytes # 1.3 10^3/uL (0.8-4.8); Mean Corpuscular HGB Conc 30.7 g/dL (30-55); Mean Corpuscular Hemoglobin 28.9 pg (27-33); Mean Corpuscular Volume 94.1 fl (85-98); Mean Platelet Volume 9.9 fL (7.4-10.4); Monocytes # 0.8 10^3/uL (0.2-0.9); Monocytes % 8.3 %; Neutrophils # 7.53 10^3/uL (1.8-7.7); Neutrophils % 77.9 %; Nucleated Red Blood Cells % 0 %; Platelet Count 145 10^3/cmm (157-399); Red Blood Count 4.22 10^6/uL (3.85-5.65); Red Cell Distribution Width 20.8 % (12.1-15.1); White Blood Count 9.67 10^3/uL (3.29-11.43)
[2024-06-11 04:24] LABS: Partial Thromboplastin Time 54.8 SECONDS (23.9-36.7)
[2024-06-11 04:38] LABS: NT Pro B Type Natriuretic Pept 3027 pg/mL (0-125)
[2024-06-11 04:55] LABS: Alanine Aminotransferase 19 U/L (0-33); Albumin Level 3.5 g/dL (3.5-5.2); Alkaline Phosphatase 78 U/L (35-105); Anion Gap 16.2 (5-19); Aspartate Amino Transferase 19 U/L (0-32); Blood Urea Nitrogen 38 mg/dL (8-23); Calcium 8.8 mg/dL (8.5-10.5); Carbon Dioxide 28 mmol/L (22-29); Chloride 89 mmol/L (98-107); Creatinine Clr Calc Pharmacy 48.3981; Globulin 2.1 g/dL (1.3-4.6); Glomerular Filtration Rate 55.5 mL/min (90-130); Glucose 84 mg/dL (65-115); NT Pro B Type Natriuretic Pept 3004 pg/mL (0-125); Osmolality Calculated 276 mOsm/kg (285-295); Phosphorus 3.3 mg/dL (2.5-4.5); Potassium 4.2 mmol/L (3.5-5.1); Sodium 129 mmol/L (136-145); Total Bilirubin 1.2 mg/dL (0.15-1.2); Total Protein 5.6 g/dL (6.6-8.7)
[2024-06-11] MEDS: heparin drip 25,000 UNIT/500 ML PREMIX 16 UNIT IV (05:10)
[2024-06-11] MEDS: VANCOMYCIN ADD-Vantage 750 MG in 0.9% NaCl ADD-Vantage 250 ML 250 MG IV (06:26)
[2024-06-11 07:40] LABS: Glucose Point of Care 83 mg/dL (70-110)
[2024-06-11] MEDS: pantoprazole 40 mg SDV IVP ×2 (08:08→20:28)
[2024-06-11] MEDS: amiodarone 200 mg Tablet PO (08:09)
[2024-06-11] MEDS: predniSONE 10 mg Tablet PO (08:09)
[2024-06-11] MEDS: bisacodyl 5 mg Tablet 10 MG PO (08:09)
[2024-06-11] MEDS: polyethylene glycol 3350 Pkt 17 gm PO ×2 (08:09→20:28)
[2024-06-11] MEDS: magnesium lactate 84 mg Tablet PO (08:09)
[2024-06-11] MEDS: aspirin 81 mg EC Tablet PO (08:09)
[2024-06-11] MEDS: budesonide 0.5 mg/2 mL Neb INHALATION ×2 (08:18→20:46)
[2024-06-11] MEDS: ipratropium-albuterol 3 mL Neb INHALATION ×3 (08:20→20:46)
--- NOTE | 2024-06-11 08:32 | XRR_ITS ---
PROCEDURE INFORMATION: Exam: XR Chest Exam date and time: 06/11/2024 11:30 AM Age: 64 years old Clinical indication: Shortness of breath; Additional info: SOB TECHNIQUE: Imaging protocol: Radiologic exam of the chest. Views: 1 view. COMPARISON: CR (CHEST, ) 06/10/2024 9:11 AM FINDINGS: Tubes, catheters and devices: There is a peripherally inserted central catheter on the right with the tip positioned in the right atrium. Lungs: There is ill-defined opacity and volume loss in the right lung base. There is platelike opacity in the left lung base. Pleural spaces: The left lateral costophrenic sulcus is blunted. The right lateral costophrenic sulcus is blunted. Heart/Mediastinum: There is marked enlargement of the cardiac silhouette. Bones/joints: Bones are unremarkable. XR/XR chest 1V portable [id number] IMPRESSION: 1. New consolidation and volume loss in the right lower lung. Some component of atelectasis is present. Superimposed infection is not excluded. The finding is new since 06/10/2024. 2. New small bilateral pleural effusions are suspected. 3. Stable PICC line. The tip is in the right atrium.
[2024-06-11 08:40] LABS: Erythrocyte Sedimentation Rate 1 mm/hr (0-15)
[2024-06-11 09:09] LABS: Lactate Dehydrogenase 213 U/L (135-214)
[2024-06-11] MEDS: Fleet Enema 133 mL Enema PR (09:25)
[2024-06-11] MEDS: enoxaparin 60 mg/0.6 mL Syringe SUBCUT ×2 (09:25→20:29)
[2024-06-11] MEDS: lactulose oral liq 20 gm/30 mL UDC PO ×2 (09:25→20:28)
[2024-06-11] MEDS: methylPREDNISolone sod succ 125 mg/2 mL INJ IVP (09:25)
[2024-06-11 11:30] LABS: Glucose Point of Care 101 mg/dL (70-110)
--- NOTE | 2024-06-11 12:29 | PC.NURSE ---
Patiet keeps getting out of bed with assistance of , this nurse educated that due to saftey concern staff needs to be present when getting up but they continue to ignor education and are upset that iv lines, vs leads and HHF tubing keep getting tangled. is upset that a dr has not talked to him yet. patient is upset that she has not gotten anything for gas pain but patient also has not requested anything. made aware
[2024-06-11] MEDS: dexmedeTOMIDine 0.9 % NaCL 400 MCG/100 ML PREMIX IV (12:38)
[2024-06-11] MEDS: simethicone 80 mg Chew PO (14:20)
[2024-06-11] MEDS: morphine 4 mg/mL SDV 1 mL 2 MG IVP (14:28)
--- NOTE | 2024-06-11 14:42 | CTR_ITS ---
PROCEDURE INFORMATION: Exam: CT Chest Without Contrast; Diagnostic Exam date and time: 06/11/2024 3:07 PM Age: 64 years old Clinical indication: Abdominal pain; Colic; Chest pressure; Additional info: Abdominal distention TECHNIQUE: Imaging protocol: Diagnostic computed tomography of the chest without contrast. Radiation optimization: All CT scans at this facility use at least one of these dose optimization techniques: automated exposure control; mA and/or kV adjustment per patient size (includes targeted exams where dose is matched to clinical indication); or iterative reconstruction. COMPARISON: CT angio chest PE protcl [id number] 06/06/2024 7:13 PM RADIATION DOSE METRICS: Total DLP (mGy-cm): 435.41 FINDINGS: Tubes, catheters and devices: Right PICC line tip is in the right atrium near the cavoatrial junction. Lungs: There is bilateral lower lung predominant coarse reticular and platelike opacity which is progressive since 06/09/2024. There is segmental atelectasis in both lower lobes. Pleural spaces: There is no pleural effusion or pneumothorax. Moderate simple dependent right and small left pleural effusions. Heart: There is marked cardiac enlargement. There is a small pericardial effusion. Coronary arteries: There is moderate coronary artery calcification. Lymph nodes: There is no mediastinal or hilar lymphadenopathy. Vasculature: There is moderate aortic atherosclerotic disease. Bones/joints: Bones are unremarkable. Soft tissues: There is mild diffuse subcutaneous edema in the chest wall. PROCEDURE INFORMATION: Exam: CT Abdomen And Pelvis Without Contrast Exam date and time: 06/11/2024 3:07 PM Age: 64 years old Clinical indication: Abdominal pain; Colic; Chest pressure; Additional info: Abdominal distention TECHNIQUE: Imaging protocol: Computed tomography of the abdomen and pelvis without contrast. Radiation optimization: All CT scans at this facility use at least one of these dose optimization techniques: automated exposure control; mA and/or kV adjustment per patient size (includes targeted exams where dose is matched to clinical indication); or iterative reconstruction. COMPARISON: CT abdomen pelvis wo con [id number] 06/09/2024 9:58 AM RADIATION DOSE METRICS: Total DLP (mGy-cm): 435.41 FINDINGS: Liver: The liver is normal. Gallbladder and biliary ducts: Gallbladder and bile ducts are unremarkable. Pancreas: There is moderate atrophy of the pancreas. Spleen: Splenic size is normal. There are scattered calcifications consistent with healed granulomas. Adrenal glands: The adrenal glands are unremarkable. Kidneys and ureters: There is a 1 mm calcification in the upper pole of the left kidney. There is no hydronephrosis or ureteral dilation on the left. No stones on the right. Mild asymmetric right renal atrophy. There is a simple 15 mm right renal cyst. There is no hydronephrosis or ureteral dilation on the right. Stomach and bowel: The stomach is nondistended, limiting assessment of wall thickness. The small bowel is nondilated. The colon is diffusely distended with extremely low-density fluid (mixed fluid and gas) from the cecum through the descending colon. The sigmoid is nondistended. Rectum is decompressed. No colonic mucosal thickening. Appendix: The appendix is normal. Intraperitoneal space: There is no free air. Moderate volume simple intraperitoneal free fluid. Vasculature: There is severe aortic atherosclerotic disease. Lymph nodes: There is no lymphadenopathy in the retroperitoneum, mesentery, pelvis or inguinal regions. Urinary bladder: The urinary bladder is decompressed, preventing meaningful evaluation of wall thickness. The Chandler catheter is appropriately positioned with the bulb and tip within the bladder lumen. Reproductive: The uterus is unremarkable. There is no adnexal mass or large cyst. Bones/joints: There is mild degenerative disease in the lumbar spine. Healed left pubic fractures. Soft tissues: There is a small fat containing umbilical hernia. There is diffuse subcutaneous edema in the abdominal wall. CT/CT chest abdpel [id number] IMPRESSION: 1. Bilateral lower lung predominant opacity is progressive since 06/09/2024. Some component of segmental atelectasis is present. Superimposed aspiration or infection cannot be excluded. 2. Marked cardiac enlargement. 3. Bilateral pleural effusions are progressive since 06/09/2024. 4. Anasarca is progressive since 06/09/2024. 5. Incidental findings above. IMPRESSION: 1. Diffusely distended colon without evidence of high-grade obstruction or wall thickening to indicate inflammation. Probable ileus. 2. Anasarca is progressive since 06/09/2024. 3. Moderate ascites is progressive since 06/09/2024. 4. Incidental findings above. COMMENTS: Consistent with the [employer]'s Incidental Findings Committee white paper (J Am José Antonio Radiol 2018): Any incidental renal lesion less than 1 cm or classified as too small to characterize, or any incidental cystic renal lesion characterized as simple-appearing, is likely benign. No follow-up imaging is recommended for these lesions per consensus recommendations based on imaging criteria.
--- NOTE | 2024-06-11 15:12 | P.PN_ITS ---
Subjective 2 Subjective: Apart from constipation patient says she is feeling much better CBC with anemia this morning Vitals/I&O/Wt Last Vital Signs Temp 97.5 F L 06/11/24 04:00 Pulse 85 06/11/24 14:00 Resp 28 H 06/11/24 14:28 BP 141/82 06/11/24 14:00 Pulse Ox 88 L 06/11/24 14:28 O2 Del Method Heated High Flow 06/11/24 08:00 O2 Flow Rate 50 06/11/24 11:27 FiO2 95 06/11/24 11:27 06/11/24 06/11/24 06/11/24 06:59 14:59 22:59 Intake Total 670.437 / 2621.846 13.161 / 13.161 Output Total 850 / 1550 Balance -179.563 / 1071.846 13.161 / 13.161 Weight last 48 hrs Weight 123 lb 7.342 oz Weight 116 lb 13.52 oz Physical Exam 2 Const: OTHER: GENERAL: Patient is alert, awake and oriented x3. HEART: Regular S1 and S2. Faint murmur systolic LUNGS: Clear to auscultate bilaterally Abdomen: Distended tympanic but nontender CENTRAL NERVOUS SYSTEM: Grossly nonfocal. EXTREMITIES: Lower extremities with out edema bilaterally. Urinary Catheter Management: Chandler: Cath Placed During This Visit: yes Reason for Continuing Indwelling Catheter: Accurate Measurement of Urinary Output in Critically Ill Patients Urinary Catheter Date of Insertion: 06/07/24 Urinary Catheter Time of Insertion: 12:30 Data 06/11/24 03:51 06/11/24 03:51 A&P Assessment and plan (1) Acute respiratory failure: (2) Sepsis: Qualifiers: Sepsis acute organ dysfunction status: unspecified Sepsis type: sepsis due to unspecified organism Qualified Code(s): A41.9 - Sepsis, unspecified organism (3) Congestive heart failure: (4) Shock: (5) Pneumonia: Qualifiers: Laterality: unspecified laterality Lung location: unspecified part of lung Pneumonia type: due to unspecified organism Qualified Code(s): J18.9 - Pneumonia, unspecified organism (6) Systemic lupus erythematosus (SLE) in adult: (7) Immunosuppression: (8) Hyperlipidemia: (9) NSTEMI (non-ST elevated myocardial infarction): Plan Continue holding Lasix hopefully with anemia and Legs active patient will have stool, continue follow-up with medicine for Hopefully by Wednesday patient will be ready for left heart cath continue current management PDMP PDMP Reviewed: Not Reviewed Attestations 2 Medical Necessity Statement*: Patient require continuation hospitalization for above defined care Coding Level of Care Code Acute Code for Chg Fwd Diagnoses Acute respiratory failure J96.00 Sepsis A41.9 Sepsis acute organ dysfunction status: unspecified Sepsis type: sepsis due to unspecified organism Congestive heart failure I50.9 Shock R57.9 Pneumonia J18.9 Laterality: unspecified laterality Lung location: unspecified part of lung Pneumonia type: due to unspecified organism Systemic lupus erythematosus (SLE) in adult M32.9 Immunosuppression D89.9 Hyperlipidemia E78.5 NSTEMI (non-ST elevated myocardial infarction) I21.4
--- NOTE | 2024-06-11 16:29 | P.PN_ITS ---
Subjective 2 Subjective: - Patient was examined multiple times th roughout the and into the afternoon - Overnight she was transition to heated high flow, requiring up to 50 L, 60% - She was seen this morning she is alert oriented x 2, follows commands, she is quite agitated, she is restless in bed, she tells of the bed bothers her, - She tells me that she has not had a anthony wel movement overnight she needs to have a bowel movement, she feels constipated, -Discussed her mild respiratory distress , she is short of breath with few words, she has nasal flaring, intercostal retractions, suprasternal retractions which are mild, her ABG shows significant hypoxia - We discussed her severe respiratory fa ilure, likely she has progressed acute respiratory distress syndrome from her aspiration event, her chest x-ray shows more evidence of a right lower lobe pneumonia, likely from her aspiration event - She denies any choking, no coughing, n o globus sensation - We discussed her underlying lung disea se, with evidence of right-sided heart failure, pulmonary hypertension, she has underlying significant heart disease - Discussed morbidity or mortality assoc iated with her current condition, she voiced understanding, all questions answered, plan is to continue IV antibiotics, start IV steroids, - She was given a bowel regimen, idaliaa jaja monitored - She was seen again in early in the mor kelsea, she has had a bowel movement she feels a bit better, but continues to have abdominal distention, she feels restless, no nausea, no vomiting, - I am going to put her on a dysphagia l evel 4 diet, moderately thickened, - Discussed with her her chest x-ray pradeep ws right lower lobe pneumonia likely from her aspiration event, she is already on broad-spectrum antibiotic therapy will continue - She was reexamined with at bed side, - Discussed with her acute respi ratory distress syndrome, likely from her aspiration event with right lower lobe pneumonia with acute respiratory failure, requiring heated high flow, discussed morbidity and mortality associated, with her underlying lung disease, underlying concerns for pulmonary hypertension, right-sided heart failure, with is her low EF, her smoking history - Discussed the possibility of intubatio n based on her clinical progress -Discussed also the possibility of trans darrin to tertiary level center for consideration of bronchoscopy, however if bronchoscopy were to be done currently in her current state she would likely require intubation for a prolonged period of time for the procedure and after the procedure, - After discussing risk benefits of all options, patient and voiced understanding, all questions answered, agreed to proceed with medical management, monitor her respiratory status closely here at [facility], they understand the morbidity and mortality associate with her current condition, currently her status is critical, prognosis guarded - Given her continued complaints of abdo chrystal distention, I repeated a CT scan abdomen pelvis - CT scan abdomen pelvis shows no eviden ce of obstruction, but does show diffusely distended colon without evidence of high-grade obstruction or wall thickening, probable ileus, does show moderate ascites - Also CT of the chest shows bilateral l ower lung predominant opacities, bilateral pleural effusions, anasarca - Will give her 1 dose of IV Lasix Vitals/I&O/Wt Last Vital Signs Temp 97.5 F L 06/11/24 04:00 Pulse 71 06/11/24 16:00 Resp 22 H 06/11/24 16:00 BP 141/82 06/11/24 14:00 Pulse Ox 88 L 06/11/24 16:00 O2 Del Method Heated High Flow 06/11/24 16:00 O2 Flow Rate 50 06/11/24 16:00 FiO2 60 06/11/24 16:00 06/11/24 06/11/24 06/11/24 06:59 14:59 22:59 Intake Total 670.437 / 2621.846 13.161 / 13.161 Output Total 850 / 1550 Balance -179.563 / 1071.846 13.161 / 13.161 Weight last 48 hrs Weight 56 kg Weight 53 kg Physical Exam 2 Const: COMMON NORMALS: no acute distress ORIENTATION/CONSCIOUSNESS: Yes awake, Yes oriented to person and Yes oriented to place; not oriented to time HENMT: COMMON NORMALS: normocephalic HEAD & SCALP: normocephalic Eye: COMMON NORMALS: Equal, round and reactive pupils present PUPIL: Yes Equal, round and reactive pupils present Resp: COMMON NORMALS: normal respiratory effort, No retractions and No use of accessory muscles OTHER: Wheezing and crackles in all lung pena, nasal flaring, tachypnea, tachycardia, mild intercostal retractions, mild respiratory distress Cardio: COMMON NORMALS: regular rate, regular rhythm, S1 normal heart sound present and S2 normal heart sound present RATE: regular rate RHYTHM: r egular rhythm HEART SOUNDS: S1 normal heart sound present and S2 normal heart sound present GI: COMMON NORMALS: Normal to inspection, nondistended, normoactive bowel sounds present, Soft to palpation and non-tender PALPATION: Yes Soft to palpation Extremity: COMMON NORMALS: no pedal edema Neuro: SENSORIUM/ORIENTATION: Yes oriented to person, Yes oriented to place and No oriented to time Psych: COMMON NORMALS: mental status grossly normal Urinary Catheter Management: Chandler: Cath Placed During This Visit: yes Reason for Continuing Indwelling Catheter: Accurate Measurement of Urinary Output in Critically Ill Patients Urinary Catheter Date of Insertion: 06/07/24 Urinary Catheter Time of Insertion: 12:30 Sepsis: Is patient septic: Yes Focused sepsis exam performed: Yes F ocused sepsis exam: DP PT pulses palpable, cap refill less than 2 seconds, no mottling Date exam was performed: 06/11/24 Time exam was performed: 08:00 Data 06/11/24 03:51 06/11/24 03:51 A&P Assessment and plan (1) Acute respiratory failure: (2) Sepsis: Qualifiers: Sepsis acute organ dysfunction status: unspecified Sepsis type: sepsis due to unspecified organism Qualified Code(s): A41.9 - Sepsis, unspecified organism (3) Congestive heart failure: (4) Shock: (5) Pneumonia: Qualifiers: Laterality: unspecified laterality Lung location: unspecified part of lung Pneumonia type: due to unspecified organism Qualified Code(s): J18.9 - Pneumonia, unspecified organism (6) Systemic lupus erythematosus (SLE) in adult: (7) Immunosuppression: (8) Hyperlipidemia: (9) NSTEMI (non-ST elevated myocardial infarction): (10) Acute respiratory distress syndrome: (11) Aspiration pneumonia: (12) Aspiration pneumonitis: (13) Ileus: (14) Ascites: Plan Acute hypoxic respiratory failure - Now with acute respiratory distress syndrome, secondary to aspiration event -With acute respiratory distress -With aspiration pneumonia, aspiration pneumonitis, aspiration event -Certainly CHF is playing a role, -Given her immunocompromise state, her recent history of multiple infections, cough -COPD CTA CT/CT angio chest PE protcl [id number] IMPRESSION: 1. Constellation of findings is most compelling for heart failure including severe cardiomegaly, bilateral pleural effusions, distension of the superior and inferior vena cava, and small pericardial effusion. 2. Enlarged pulmonary artery tree is compatible with chronic PA hypertension. No findings of acute pulmonary embolism. 3. Advanced arterial disease. No findings of acute aortic dissection. Additional assessment the aorta is limited by contrast bolus timing and patient motion. There is probably high-grade stenosis at the origin of the left subclavian artery. Moderate stenosis of the proximal common carotid arteries noted. Cardiac echo CONCLUSIONS LV systolic function is moderately reduced with EF of 35-40% RV appears dilated and severely hypokinetic. Left atrial dilation Mild mitral regurgitation Mild tricuspid regurgitation. Trace pericardial effusion No comparison studies are available. CT chest - CT/[place] [id number] IMPRESSION: 1. Bilateral lower lung predominant opacity is progressive since 06/09/2024. Some component of segmental atelectasis is present. Superimposed aspiration or infection cannot be excluded. 2. Marked cardiac enlargement. 3. Bilateral pleural effusions are progressive since 06/09/2024. 4. Anasarca is progressive since 06/09/2024. 5. Incidental findings above. Plan -Will monitor in ICU -Low threshold for intubation -Currently requiring heated high flow, BiPAP as needed -Currently on room 4L - Continue vancomycin, Zosyn -Aspiration pneumonitis, scopolamine patch, aspiration precautions, dysphagia diet -Solu-Medrol 40 mg IV every 8 hours -Blood cultures -Sputum culture - 1 dose IV Lasix -Started on Levophed to maintain MAP in 65 -PICC line -DuoNeb, budesonide Pulmonary hypertension, with RV appearing to be dilated and severely hypokinetic, with underlying COPD - All indicated of pulm hypertension, right-sided heart failure, due to underlying COPD Anasarca, bilateral pleural effusions, moderate ascites - 1 dose IV Lasix today - With moderate ascites will consider paracentesis based on clinical progress - LFTs within normal limits - Ascites could be cardiac in etiology given low EF right-sided heart failure Aspiration pneumonitis -Resulting in respiratory failure -Now progressing to acute respiratory distress syndrome -CT scan abdomen pelvis does not show any evidence of bowel obstruction, but does show ileus -Riki Spicer for nausea vomiting -Scopolamine patch -Speech therapy eval -Aspiration precautions Shock, currently off Levophed -Likely cardiogenic shock given EF of 35% -Component of sepsis also difficult to rule out -Will monitor in ICU -Levophed , maintain MAP more than 65 -Is chronically on prednisone, risk of adrenal insufficiency, status post 1 dose hydrocortisone SVT versus atrial fibrillation -Did not respond to 2 doses of atropine, conservative intervention -Amiodarone bolus, amiodarone drip, converted to normal sinus rhythm - Transition to p.o. amiodarone Chest pain complaints, NSTEMI -No active chest pain -EKGs, serial troponins, telemetry monitoring -Aspirin, statin -Cardiac echo CONCLUSIONS LV systolic function is moderately reduced with EF of 35-40% RV appears dilated and severely hypokinetic. Left atrial dilation Mild mitral regurgitation Mild tricuspid regurgitation. Trace pericardial effusion No comparison studies are available. -therapeutic Lovenox CHF exacerbation, biventricular heart failure, systolic -Lasix 40 IV once -On Levophed to maintain MAP greater than 65 -Cardiology consulted -Might require pressors to maintain MAP greater than 65 while diuresing -Cardiac echo, as above History of COPD Immunocompromise state with lupus, continue prednisone, hold leflunomide -Potentially lupus could be playing a role in patient's NSTEMI, CHF Prediabetes, low-dose sliding scale Full code Heparin drip for DVT prophylaxis Protonix for GI prophylaxis Plan for today PDMP PDMP Reviewed: Not Reviewed Attestations 2 Medical Necessity Statement*: Plan for today, spoke to , spoke to , IV antibiotics, monitor acute respiratory distress syndrome, oxygen therapy, IV steroids, IV Lasix, status is critical, prognosis guarded Patient requires hospitalization for acute hypoxic respiratory failure, with acute respiratory distress syndrome, secondary to aspiration, aspiration pneumonitis, right lower lobe pneumonia, shock, fluid overload, NSTEMI, with underlying pulmonary hypertension, right-sided heart failure, smoking history Coding Level of Care Code Critical Care >/= 30 minutes Critical care time (in minutes): 45 The high probability of a clinically significant, sudden or life threatening deterioration, as referenced in this documentation, required my full and direct attention, intervention and personal management. The critical care time shown is in addition to time spent performing any reported separately billable procedures and includes the following: [x] Data and vital sign review and interpretation [x ] Patient assessment, examination and intervention [x] Medication orders and management [x] Patient/Family updates as able [x] Care Coordination and Documentation. Diagnoses Acute respiratory failure J96.00 Sepsis A41.9 Sepsis acute organ dysfunction status: unspecified Sepsis type: sepsis due to unspecified organism Congestive heart failure I50.9 Shock R57.9 Pneumonia J18.9 Laterality: unspecified laterality Lung location: unspecified part of lung Pneumonia type: due to unspecified organism Systemic lupus erythematosus (SLE) in adult M32.9 Immunosuppression D89.9 Hyperlipidemia E78.5 NSTEMI (non-ST elevated myocardial infarction) I21.4 Acute respiratory distress syndrome J80 Aspiration pneumonia J69.0 Aspiration pneumonitis J69.0 Ileus K56.7 Ascites R18.8
[2024-06-11] MEDS: FUROsemide 10 mg/mL SDV 4mL 40 MG IVP (16:39)
--- NOTE | 2024-06-11 17:15 | PC.NURSE ---
Work of breathing increased, loc decreased and o2 sat 78, RT notified DR. Diehl placed on bipap
[2024-06-11 17:36] LABS: Glucose Point of Care 122 mg/dL (70-110)
[2024-06-11 18:41] LABS: Vancomycin Trough 23.1 ug/mL (10-15)
--- NOTE | 2024-06-11 19:35 | PC.NURSE ---
Vancomycin: Called telepharmacy about pt's high vancomycin trough of 23.1. Hold this dose of Vancomycin per pharmacy orders.
[2024-06-11 20:24] LABS: ABG PCO2 43.5 mmHg (35-45); ABG PH Result 7.43 (7.35-7.45); Alveolar-Arterial Oxygen Gradi 48.8 mmHg (5-10); Arterial Blood Gas Hematocrit 40.4 % (37-47); Base Excess ABG 3.6 mmol/L (-2.0-2.0); Blood Gas Operator Identificat SAM; Blood Gas Sample Site Brachial, left; Blood Gas Sample Type Arterial; Carboxyhemoglobin 0.9 %THgb (0.4-20.1); HCO3 ABG 28.5 mmol/L (22-26); HGB O2 Sat 92.3 % (95-100); Ionized Calcium Level - ABG 1.2 mmol/L (1.1-1.4); Methemoglobin 0.2 % (0.4-1.5); Oxygen Device BIPAP; Oxygen Saturation ABG 93.4; PO2 ABG 69.7 mmHg (80.0-100.0); PO2 FiO2 Ratio Arterial Blood 99; Potassium Level - ABG 3.7 mmol/L (3.5-5.0); Total Hemoglobin 13.2 g/dL (12-16)
[2024-06-11] MEDS: atorvastatin 40 mg Tablet PO (20:29)
[2024-06-11] MEDS: methylPREDNISolone sod succ 40 mg/mL INJ IVP (20:29)
[2024-06-11 20:50] LABS: Alanine Aminotransferase 23 U/L (0-33); Albumin Level 3.7 g/dL (3.5-5.2); Alkaline Phosphatase 90 U/L (35-105); Anion Gap 16.9 (5-19); Aspartate Amino Transferase 22 U/L (0-32); Blood Urea Nitrogen 33 mg/dL (8-23); Calcium 8.9 mg/dL (8.5-10.5); Carbon Dioxide 28 mmol/L (22-29); Chloride 90 mmol/L (98-107); Creatinine Clr Calc Pharmacy 49.4464; Globulin 2.8 g/dL (1.3-4.6); Glomerular Filtration Rate 55.5 mL/min (90-130); Glucose 132 mg/dL (65-115); Magnesium 2.1 mg/dL (1.7-2.3); Osmolality Calculated 281 mOsm/kg (285-295); Phosphorus 3.8 mg/dL (2.5-4.5); Potassium 3.9 mmol/L (3.5-5.1); Sodium 131 mmol/L (136-145); Total Bilirubin 1.6 mg/dL (0.15-1.2); Total Protein 6.5 g/dL (6.6-8.7)
[2024-06-11 22:05] LABS: Glucose Point of Care 137 mg/dL (70-110)
[2024-06-11] MEDS: dexmedeTOMIDine 0.9 % NaCL 400 MCG/100 ML PREMIX 11.59 MCG IV (22:46)
[2024-06-12] VITALS (63 sets, daily range): BP systolic 93–147; BP diastolic 55–96; PULSE 65–75; RESP 12–34; TEMP 36–37.7; O2SAT 87–100
[2024-06-12] MEDS: Fleet Enema 133 mL Enema PR (00:10)
[2024-06-12] MEDS: piperacillin-tazobactam 3.375 GM in sodium chloride 0.9% (plus) 50 ML IV ×3 (00:21→16:14)
[2024-06-12] MEDS: lactulose oral liq 20 gm/30 mL UDC 40 GM PO (00:21)
[2024-06-12] MEDS: ALPRAZolam 0.5 mg Tablet 0.25 MG PO (03:39)
[2024-06-12] MEDS: methylPREDNISolone sod succ 40 mg/mL INJ IVP ×3 (04:09→20:46)
[2024-06-12 04:33] LABS: ABG PCO2 43.1 mmHg (35-45); ABG PH Result 7.41 (7.35-7.45); Arterial Blood Gas Hematocrit 41.6 % (37-47); Base Excess ABG 2.5 mmol/L (-2.0-2.0); Blood Gas Allen Test Pos; Blood Gas Operator Identificat SAM; Blood Gas Sample Site Radial, left; Blood Gas Sample Type Arterial; HCO3 ABG 27.5 mmol/L (22-26); Oxygen Device BIPAP; PO2 ABG 66.3 mmHg (80.0-100.0); PO2 FiO2 Ratio Arterial Blood 66
[2024-06-12 05:22] LABS: Basophils % 0.1 %; Hematocrit 42.6 % (36-47); Lymphocytes # 0.5 10^3/uL (0.8-4.8); Lymphocytes % 3.5 %; Mean Corpuscular HGB Conc 31.2 g/dL (30-55); Mean Corpuscular Hemoglobin 28.7 pg (27-33); Mean Corpuscular Volume 91.8 fl (85-98); Mean Platelet Volume 9.6 fL (7.4-10.4); Monocytes # 0.9 10^3/uL (0.2-0.9); Monocytes % 6.8 %; Neutrophils # 12.13 10^3/uL (1.8-7.7); Nucleated Red Blood Cells % 0 %; Platelet Count 175 10^3/cmm (157-399); Red Blood Count 4.64 10^6/uL (3.85-5.65); Red Cell Distribution Width 20.6 % (12.1-15.1); White Blood Count 13.62 10^3/uL (3.29-11.43)
[2024-06-12 05:44] LABS: Lactate (Lactic Acid level) 2.5 mmol/L (0.5-2.2)
[2024-06-12 05:50] LABS: NT Pro B Type Natriuretic Pept 6799 pg/mL (0-125); Procalcitonin 0.12 ng/mL (0-0.5)
[2024-06-12 06:01] LABS: Alanine Aminotransferase 26 U/L (0-33); Albumin Level 3.9 g/dL (3.5-5.2); Alkaline Phosphatase 96 U/L (35-105); Anion Gap 16.8 (5-19); Aspartate Amino Transferase 21 U/L (0-32); Blood Urea Nitrogen 33 mg/dL (8-23); Calcium 9.5 mg/dL (8.5-10.5); Carbon Dioxide 28 mmol/L (22-29); Chloride 91 mmol/L (98-107); Creatinine Clr Calc Pharmacy 54.9404; Globulin 2.8 g/dL (1.3-4.6); Glomerular Filtration Rate 62.6 mL/min (90-130); Glucose 146 mg/dL (65-115); Magnesium 2.3 mg/dL (1.7-2.3); Osmolality Calculated 284 mOsm/kg (285-295); Potassium 3.8 mmol/L (3.5-5.1); Sodium 132 mmol/L (136-145); Total Bilirubin 1.8 mg/dL (0.15-1.2); Total Protein 6.7 g/dL (6.6-8.7)
[2024-06-12 06:02] LABS: C Reactive Protein 12.5 mg/L (0.0-4.9)
[2024-06-12] MEDS: vancomycin 500 MG in sodium chloride 0.9% (plus) 100 ML 200 MG IV ×2 (07:16→18:53)
[2024-06-12 07:49] LABS: Glucose Point of Care 149 mg/dL (70-110)
[2024-06-12] MEDS: dexmedeTOMIDine 0.9 % NaCL 400 MCG/100 ML PREMIX 12.88 MCG IV (08:02)
[2024-06-12] MEDS: insulin lispro 100 unit/1 mL SUBCUT ×2 (08:18→12:38)
[2024-06-12] MEDS: morphine 4 mg/mL SDV 1 mL 2 MG IVP (08:26)
--- NOTE | 2024-06-12 08:33 | PC.NURSE ---
Upon morning assessment, patient is very upset with nursing staff. Is demanding something to drink. Nurse explained that with the amount of oxygen she is needing (100% fio2 on bipap) and how quickly her oxygen levels drop she is not able to come off of the mask for a drink. NUrse is also concerned for aspiration again. Patient started yelling at nursing saying i don't need to take off the mask, i can slip a straw under it . Nurse told the patient that it appears she doesn't understand how sick she is. No more assistance is available form the bipap. SHe is at a high risk of intubation and drinking at this time would nearly guarantee it. At this time Dr knowles came to bedside and had a similar conversation. Patient seemed to accept Dr knowles's explanation and she agreed to intubation
--- NOTE | 2024-06-12 08:56 | XR_ITS ---
WS: [id number] Exam: XR chest 1V portable [id number] Date/Time of Exam: 06/12/2024 9:04 AM Reason For Exam: post intubation Comparison 06/11/2024. An ET tube has been placed in and is about 5 cm above the shannan in good position. Heart is enlarged but unchanged in size. Pulmonary vascular congestion. Bibasal infiltrates and areas of atelectasis. Pleural effusions have resolved. No pneumothorax. The mediastinum is normal in contour. XR/XR chest 1V portable [id number] IMPRESSION: 1. ET tube and NG tube both in satisfactory position. There is also a right-daniella ed PICC line ending at the cavoatrial junction in satisfactory location. 2. Bibasal infiltrates and areas of atelectasis. 3. Cardiac enlargement with pulmonary vascular congestion.
[2024-06-12] MEDS: midazolam hcl 100 MG/100 ML BAG IV (08:57)
[2024-06-12] MEDS: fentaNYL 1,000 MCG/100 ML BAG 2.5 MCG IV (08:58)
--- NOTE | 2024-06-12 09:00 | ANES.PROC ---
Anesthesia Procedures Procedure/Date: 06/12/24 Intubation: Time Out Performed: Yes Consent: requested by attending/covering physician and from patient Sedative (amount): other (18 mg etomidate 20 mg propofol, 120 mg succinylcholine and 200 mcg of phenylephrine) Paralytic (amount): succinylcholine Laryngoscope: Mariia ET Tube Size: 7.5 ET Tube Uncuffed: Yes Tube Secured Depth (cm): 23 Tube Secured Location: teeth Tube Placement Confirmation: visualized tube passing through cords Patient Tolerated Procedure: well Intubation Complications: none Additional Comments: Consent for procedure obtained by hospitalist with the patient at bedside
--- NOTE | 2024-06-12 10:17 | PC.NURSE ---
DUe to increasing oxygen requirements, increasing work of breahting, and impending respiratory failure, patient was intubated. Intubated at 0900. Procedure was uneventful. Sedation continued afterwards with precedex, versed, and fentanyl.
[2024-06-12 10:56] LABS: ABG PCO2 33.9 mmHg (35-45); ABG PH Result 7.55 (7.35-7.45); Alveolar-Arterial Oxygen Gradi 71.3 mmHg (5-10); Arterial Blood Gas Hematocrit 40.1 % (37-47); Base Excess ABG 6.9 mmol/L (-2.0-2.0); Blood Gas Operator Identificat GD; Blood Gas Sample Site Brachial, left; Blood Gas Sample Type Arterial; Carboxyhemoglobin 0.2 %THgb (0.4-20.1); HCO3 ABG 29.4 mmol/L (22-26); HGB O2 Sat 97.1 % (95-100); Ionized Calcium Level - ABG 1.2 mmol/L (1.1-1.4); Methemoglobin 0.8 % (0.4-1.5); Oxygen Device VENT; Oxygen Saturation ABG 98.1; PO2 FiO2 Ratio Arterial Blood 118; Potassium Level - ABG 3.4 mmol/L (3.5-5.0); Total Hemoglobin 13.1 g/dL (12-16)
[2024-06-12] MEDS: predniSONE 10 mg Tablet PO (11:00)
[2024-06-12] MEDS: lactulose oral liq 20 gm/30 mL UDC PO (11:00)
[2024-06-12] MEDS: bisacodyl 5 mg Tablet 10 MG PO (11:00)
[2024-06-12] MEDS: magnesium lactate 84 mg Tablet PO ×2 (11:00→17:29)
[2024-06-12] MEDS: polyethylene glycol 3350 Pkt 17 gm PO ×2 (11:00→20:46)
[2024-06-12] MEDS: amiodarone 200 mg Tablet PO ×2 (11:01→17:29)
--- NOTE | 2024-06-12 11:04 | P.PN_ITS ---
<Statement entered by Davide Melendez MD - 06/13/24 20:39> Patient was evaluated and cared for in conjunction with an advanced practice practitioner. I personally examined the patient and reviewed the chart and all pertinent data including imaging, telemetry, and laboratory results. I discussed the patient in detail with the advanced practice practitioner. Please see their note for complete H&P testing result and agreed upon plan of care for the patient. Patient went into respiratory distress this morning was intubated most likely to ARDS aspiration GENERAL: Patient is intubated and sedated HEART: Regular S1 and S2. No murmur, rub or gallop. LUNGS: Decreased breath sound bilaterally. CENTRAL NERVOUS SYSTEM: Grossly nonfocal. EXTREMITIES: Lower extremities with out edema bilaterally. Respiratory failure ARDS [id number] of Acute decompensated systolic heart failure Severely depressed left ventricle ejection fraction Continue IV antibiotic for possible aspiration pneumonia Patient family requested transfer as initially our plan was once recovered from pneumonia we will proceed with left heart cath however it can be done at other hospital as well Continue current management Subjective 2 Subjective: Patient required intubation this morning due to declining O2 sats and increasing oxygen requirement. She has evidence of ARDS this time Vitals/I&O/Wt Last Vital Signs Temp 98.6 F 06/12/24 08:00 Pulse 75 06/12/24 10:00 Resp 16 06/12/24 09:23 BP 99/65 06/12/24 10:00 Pulse Ox 99 06/12/24 10:00 O2 Del Method Mechanical Ventilation 06/12/24 09:30 O2 Flow Rate 50 06/11/24 16:00 FiO2 100 06/12/24 09:30 06/11/24 06/12/24 06/12/24 22:59 06:59 14:59 Intake Total 258.925 / 583.161 410 / 993.161 139.789 / 139.789 Output Total 1500 / 1500 850 / 2350 100 / 100 Balance -1241.075 / -916.839 -440 / -1356.839 39.789 / 39.789 Weight last 48 hrs Weight 121 lb 0.54 oz Weight 123 lb 7.342 oz Physical Exam 2 Narrative: General: Intubated, sedated HENMT: normoceophalic Respiratory: Normal respiratory effort, clear throughout all lung pena, no use of accessory muscles Cardio: No JVD, regular rate, regular rhythm, S1 S2 normal, no murmurs Extremities: No edema Skin: No rashes or lesions noted, no wounds Urinary Catheter Management: Chandler: Cath Placed During This Visit: yes Reason for Continuing Indwelling Catheter: Accurate Measurement of Urinary Output in Critically Ill Patients Urinary Catheter Date of Insertion: 06/07/24 Urinary Catheter Time of Insertion: 12:30 Data 06/12/24 04:39 06/12/24 04:39 Micro: Microbiology 06/12/24 09:20 Gram Stain - Final Sputum - Endotracheal Tube Aspirate 06/06/24 18:00 Blood Culture - Final Blood NO GROWTH AFTER 5 DAYS 06/06/24 17:53 Blood Culture - Final Blood NO GROWTH AFTER 5 DAYS A&P Assessment and plan (1) Acute respiratory failure: (2) Sepsis: Qualifiers: Sepsis acute organ dysfunction status: unspecified Sepsis type: sepsis due to unspecified organism Qualified Code(s): A41.9 - Sepsis, unspecified organism (3) Congestive heart failure: (4) Shock: (5) Pneumonia: Qualifiers: Laterality: unspecified laterality Lung location: unspecified part of lung Pneumonia type: due to unspecified organism Qualified Code(s): J18.9 - Pneumonia, unspecified organism (6) Systemic lupus erythematosus (SLE) in adult: (7) Immunosuppression: (8) Hyperlipidemia: (9) NSTEMI (non-ST elevated myocardial infarction): Plan At this time, it is our understanding that patient's family would like patient transferred. Until then, recommend continue current care. PDMP PDMP Reviewed: Not Reviewed Attestations 2 Medical Necessity Statement*: Deferred to primary. Coding Level of Care Code Acute Code for [facility] Diagnoses Acute respiratory failure J96.00 Sepsis A41.9 Sepsis acute organ dysfunction status: unspecified Sepsis type: sepsis due to unspecified organism Congestive heart failure I50.9 Shock R57.9 Pneumonia J18.9 Laterality: unspecified laterality Lung location: unspecified part of lung Pneumonia type: due to unspecified organism Systemic lupus erythematosus (SLE) in adult M32.9 Immunosuppression D89.9 Hyperlipidemia E78.5 NSTEMI (non-ST elevated myocardial infarction) I21.4
[2024-06-12] MEDS: FUROsemide 10 mg/mL SDV 4mL 40 MG IVP (11:10)
[2024-06-12] MEDS: pantoprazole 40 mg SDV IVP ×2 (11:10→20:47)
[2024-06-12] MEDS: enoxaparin 60 mg/0.6 mL Syringe SUBCUT ×2 (11:12→20:47)
[2024-06-12] MEDS: ipratropium-albuterol 3 mL Neb INHALATION ×4 (11:14→19:45)
[2024-06-12 12:36] LABS: Glucose Point of Care 154 mg/dL (70-110)
--- NOTE | 2024-06-12 14:10 | PC.NURSE ---
Precedex and versed available for sedation at this time. QT interval noted to be lengthening since precedex was started on the 4th, and currently at 0.58. Nurse has been titrating down on precedex. Increasing versed as indicated. Alerted physician.
[2024-06-12 14:18] LABS: ABG PCO2 38.5 mmHg (35-45); ABG PH Result 7.52 (7.35-7.45); Alveolar-Arterial Oxygen Gradi 57.5 mmHg (5-10); Arterial Blood Gas Hematocrit 41.1 % (37-47); Base Excess ABG 8.1 mmol/L (-2.0-2.0); Blood Gas Operator Identificat GD; Blood Gas Sample Site Brachial, left; Blood Gas Sample Type Arterial; Carboxyhemoglobin 0.9 %THgb (0.4-20.1); HCO3 ABG 31.5 mmol/L (22-26); HGB O2 Sat 94.8 % (95-100); Ionized Calcium Level - ABG 1.1 mmol/L (1.1-1.4); Oxygen Device VENT; Oxygen Saturation ABG 96.6; PO2 ABG 77.4 mmHg (80.0-100.0); PO2 FiO2 Ratio Arterial Blood 96; Potassium Level - ABG 3.2 mmol/L (3.5-5.0); Total Hemoglobin 13.4 g/dL (12-16)
[2024-06-12 14:31] LABS: Influenza A NEGATIVE (Negative); Influenza B NEGATIVE (Negative); Respiratory Syncytial Virus Ce NEGATIVE (Negative); SARS-CoV-2 PCR NEGATIVE (Negative)
--- NOTE | 2024-06-12 15:17 | PC.SOCIAL ---
IMM updated IMM dated and initialed, copy given to patient and copy placed in chart.
[2024-06-12 17:11] LABS: ABG PCO2 43.6 mmHg (35-45); ABG PH Result 7.48 (7.35-7.45); Alveolar-Arterial Oxygen Gradi 58.1 mmHg (5-10); Arterial Blood Gas Hematocrit 39.7 % (37-47); Base Excess ABG 8.3 mmol/L (-2.0-2.0); Blood Gas Operator Identificat GD; Blood Gas Sample Site Brachial, left; Blood Gas Sample Type Arterial; Carboxyhemoglobin 0.9 %THgb (0.4-20.1); HCO3 ABG 32.7 mmol/L (22-26); HGB O2 Sat 92.7 % (95-100); Ionized Calcium Level - ABG 1.1 mmol/L (1.1-1.4); Methemoglobin 0.2 % (0.4-1.5); Oxygen Device VENT; Oxygen Saturation ABG 93.8; PO2 ABG 68.1 mmHg (80.0-100.0); PO2 FiO2 Ratio Arterial Blood 85; Potassium Level - ABG 3.2 mmol/L (3.5-5.0); Total Hemoglobin 12.9 g/dL (12-16)
[2024-06-12 17:43] LABS: Glucose Point of Care 125 mg/dL (70-110)
--- NOTE | 2024-06-12 17:43 | P.PN_ITS ---
Subjective 2 Subjective: - Patient was examined this morning - She is currently on 100% BiPAP, nasal flaring, intercostal retractions suprasternal retractions, tachypnea, tachycardia, crackles and wheezing in all lung pena - ABG this morning shows acute hypoxic r espiratory failure, PA over FiO2 ratio at 66, - Discussed with the patient, she has pr ofound acute hypoxic respiratory failure she is uncomfortable, she is starting to tire out in terms of her breathing, discussed morbidity of mortality associate with acute hypoxic respiratory failure, with acute respiratory distress syndrome, discussed elective intubation versus emergent intubation - Morbidity and mortality discussed, she voiced understanding, all questions answered - Discussed that as her respiratory fail ure continues to worsen, she is developing evidence of respiratory distress, she is very uncomfortable, I feel that she is starting to tire out, she is having evidence of abdominal breathing, recommended elective intubation - After discussing risks and benefits of elective intubation, she voiced understanding, all questions answered, agreed to proceed - I also spoke to patient's over the phone, who tells me he will be in the hospital within an hour but is agreeable to elective intubation - Anesthesia was consulted, patient was electively intubated - She was examined she is on 100% FiO2 i ntubated, sedated on fentanyl and Versed - She was reexamined again earlier in morning, she is down to 80% FiO2, fentanyl and Versed for sedation, she has received Lasix therapy - Spoke to patient's at bedside rest of the family discussed patient's acute respiratory distress syndrome, acute respiratory failure, likely secondary to aspiration pneumonia, aspiration pneumonitis, with underlying lung disease, COPD, evidence of right-sided heart failure, pulmonary hypertension, systolic CHF, - Patient's would prefer for [facility] ient to be transferred to hospital in [place], as that is where the majority of the support system tommy has is - Discussed trying local facility, as [facility] has high oxygen requirements, discussed morbidity and mortality for transport -However family would prefer [place] -I called [facility] early in the morning, and in the afternoon however they are on ICU hold and do not have beds -I spoke to [facility] unfor tunately do not have beds and they have not excepted the patient -I spoke to [facility], patient has been added to their wait list, however no bed availability -Reached out to patient's , let t hem know the situation, however they would prefer [place], rather than a facility in [place] or [place] -She was examined again in the afternoon , discussed with daughter and family at bedside, she is on 80% FiO2, most recent ABG shows pH 7.48, PO2 68.1, tidal volume 400, FiO2 80, PEEP of 10 - Vitals/I&O/Wt Last Vital Signs Temp 99.8 F H 06/12/24 13:00 Pulse 69 06/12/24 15:10 Resp 12 06/12/24 15:07 BP 105/66 06/12/24 14:00 Pulse Ox 92 06/12/24 15:07 O2 Del Method Mechanical Ventilation 06/12/24 15:00 O2 Flow Rate 50 06/11/24 16:00 FiO2 80 06/12/24 15:07 06/12/24 06/12/24 06/12/24 06:59 14:59 22:59 Intake Total 410 / 993.161 322.508 / 322.508 64.683 / 387.191 Output Total 850 / 2350 850 / 850 Balance -440 / -1356.839 -527.492 / -527.492 64.683 / -462.809 Weight last 48 hrs Weight 54.9 kg Weight 56 kg Physical Exam 2 Const: COMMON NORMALS: no acute distress OTHER: Intubated, sedated, on mechanical ventilation Resp: AUSCULTATION: crackles and wheezes OTHER: Tachypnea, tachycardia, nasal flaring, intercostal retractions, suprasternal retractions Cardio: COMMON NORMALS: regular rate, regular rhythm, S1 normal heart sound present and S2 normal heart sound present RATE: regular rate RHYTHM: r egular rhythm HEART SOUNDS: S1 normal heart sound present and S2 normal heart sound present GI: COMMON NORMALS: Normal to inspection, nondistended, normoactive bowel sounds present and non-tender Extremity: COMMON NORMALS: no pedal edema Psych: COMMON NORMALS: mental status grossly normal Urinary Catheter Management: Chandler: Cath Placed During This Visit: yes Reason for Continuing Indwelling Catheter: Accurate Measurement of Urinary Output in Critically Ill Patients Urinary Catheter Date of Insertion: 06/07/24 Urinary Catheter Time of Insertion: 12:30 Sepsis: Is patient septic: Yes Focused sepsis exam performed: Yes F ocused sepsis exam: DP PT pulses palpable, cap refill less than 2 seconds, no mottling Date exam was performed: 06/12/24 Time exam was performed: 17:49 Data 06/12/24 04:39 06/12/24 04:39 Micro: Microbiology 06/12/24 09:20 Gram Stain - Final Sputum - Endotracheal Tube Aspirate 06/06/24 18:00 Blood Culture - Final Blood NO GROWTH AFTER 5 DAYS 06/06/24 17:53 Blood Culture - Final Blood NO GROWTH AFTER 5 DAYS A&P Assessment and plan (1) Acute respiratory failure: (2) Sepsis: Qualifiers: Sepsis acute organ dysfunction status: unspecified Sepsis type: sepsis due to unspecified organism Qualified Code(s): A41.9 - Sepsis, unspecified organism (3) Congestive heart failure: (4) Shock: (5) Pneumonia: Qualifiers: Laterality: unspecified laterality Lung location: unspecified part of lung Pneumonia type: due to unspecified organism Qualified Code(s): J18.9 - Pneumonia, unspecified organism (6) Systemic lupus erythematosus (SLE) in adult: (7) Immunosuppression: (8) Hyperlipidemia: (9) NSTEMI (non-ST elevated myocardial infarction): (10) Acute respiratory distress syndrome: (11) Aspiration pneumonia: (12) Aspiration pneumonitis: (13) Ileus: (14) Ascites: Plan Acute hypoxic respiratory failure - Now with acute respiratory distress syndrome, secondary to aspiration event -With acute respiratory distress -With aspiration pneumonia, aspiration pneumonitis, aspiration event -Certainly CHF is playing a role, -Given her immunocompromise state, her recent history of multiple infections, cough -COPD CTA CT/CT angio chest PE protcl [id number] IMPRESSION: 1. Constellation of findings is most compelling for heart failure including severe cardiomegaly, bilateral pleural effusions, distension of the superior and inferior vena cava, and small pericardial effusion. 2. Enlarged pulmonary artery tree is compatible with chronic PA hypertension. No findings of acute pulmonary embolism. 3. Advanced arterial disease. No findings of acute aortic dissection. Additional assessment the aorta is limited by contrast bolus timing and patient motion. There is probably high-grade stenosis at the origin of the left subclavian artery. Moderate stenosis of the proximal common carotid arteries noted. Cardiac echo CONCLUSIONS LV systolic function is moderately reduced with EF of 35-40% RV appears dilated and severely hypokinetic. Left atrial dilation Mild mitral regurgitation Mild tricuspid regurgitation. Trace pericardial effusion No comparison studies are available. CT chest - CT/[place] [id number] IMPRESSION: 1. Bilateral lower lung predominant opacity is progressive since 06/09/2024. Some component of segmental atelectasis is present. Superimposed aspiration or infection cannot be excluded. 2. Marked cardiac enlargement. 3. Bilateral pleural effusions are progressive since 06/09/2024. 4. Anasarca is progressive since 06/09/2024. 5. Incidental findings above. - On 100% BiPAP, with evidence of respiratory distress, PaO2/FiO2 ratio of 66, decision with consent of patient and to electively intubate patient, intubated Plan -Will monitor in ICU - Intubated, sedated mechanical ventilation - Minimize tidal volume, minimize FiO2 - ARDS protocol - Continue vancomycin, Zosyn -Solu-Medrol 40 mg IV every 8 hours -Blood cultures -Sputum culture - 1 dose IV Lasix today -Started on Levophed to maintain MAP in 65 -PICC line -DuoNeb, budesonide Pulmonary hypertension, with RV appearing to be dilated and severely hypokinetic, with underlying COPD - All indicated of pulm hypertension, right-sided heart failure, due to underlying COPD Anasarca, bilateral pleural effusions, moderate ascites - 1 dose IV Lasix today - With moderate ascites will consider paracentesis based on clinical progress - LFTs within normal limits - Ascites could be cardiac in etiology given low EF right-sided heart failure Aspiration pneumonitis -Resulting in respiratory failure -Now progressing to acute respiratory distress syndrome -CT scan abdomen pelvis does not show any evidence of bowel obstruction, but does show ileus -Riki Spicer for nausea vomiting -Scopolamine patch -Speech therapy eval -Aspiration precautions Shock, currently off Levophed -Likely cardiogenic shock given EF of 35% -Component of sepsis also difficult to rule out -Will monitor in ICU -Levophed , maintain MAP more than 65 -Is chronically on prednisone, risk of adrenal insufficiency, status post 1 dose hydrocortisone SVT versus atrial fibrillation -Did not respond to 2 doses of atropine, conservative intervention -Amiodarone bolus, amiodarone drip, converted to normal sinus rhythm - Transition to p.o. amiodarone Chest pain complaints, NSTEMI -No active chest pain -EKGs, serial troponins, telemetry monitoring -Aspirin, statin -Cardiac echo CONCLUSIONS LV systolic function is moderately reduced with EF of 35-40% RV appears dilated and severely hypokinetic. Left atrial dilation Mild mitral regurgitation Mild tricuspid regurgitation. Trace pericardial effusion No comparison studies are available. -therapeutic Lovenox - Concern for ischemic cardiomyopathy, had plans on coronary angiography, currently on hold given respiratory failure as above CHF exacerbation, biventricular heart failure, systolic -Lasix 40 IV once -On Levophed to maintain MAP greater than 65 -Cardiology consulted -Might require pressors to maintain MAP greater than 65 while diuresing -Cardiac echo, as above History of COPD Immunocompromise state with lupus, continue prednisone, hold leflunomide -Potentially lupus could be playing a role in patient's NSTEMI, CHF Prediabetes, low-dose sliding scale Full code Lovenox for DVT prophylaxis Protonix for GI prophylaxis Plan for today PDMP PDMP Reviewed: Not Reviewed Attestations 2 Medical Necessity Statement*: Patient requires hospitalization for acute respiratory distress syndrome, acute respiratory failure, aspiration pneumonia, COPD, CHF, Coding Level of Care Code Critical Care >/= 30 minutes Critical care time (in minutes): 60 The high probability of a clinically significant, sudden or life threatening deterioration, as referenced in this documentation, required my full and direct attention, intervention and personal management. The critical care time shown is in addition to time spent performing any reported separately billable procedures and includes the following: [x] Data and vital sign review and interpretation [x ] Patient assessment, examination and intervention [x] Medication orders and management [x] Patient/Family updates as able [x] Care Coordination and Documentation. Diagnoses Acute respiratory failure J96.00 Sepsis A41.9 Sepsis acute organ dysfunction status: unspecified Sepsis type: sepsis due to unspecified organism Congestive heart failure I50.9 Shock R57.9 Pneumonia J18.9 Laterality: unspecified laterality Lung location: unspecified part of lung Pneumonia type: due to unspecified organism Systemic lupus erythematosus (SLE) in adult M32.9 Immunosuppression D89.9 Hyperlipidemia E78.5 NSTEMI (non-ST elevated myocardial infarction) I21.4 Acute respiratory distress syndrome J80 Aspiration pneumonia J69.0 Aspiration pneumonitis J69.0 Ileus K56.7 Ascites R18.8
--- NOTE | 2024-06-12 18:05 | PC.NURSE ---
SHift SUmmary: Intubated at 0900 due to impending respiratory failure (increased work of breathing, air hunger, desaturation, already at 100% fio2 on bipap) Titrated off of precedex due to prolonged QT, currently on versed at 5mg/hr. Currently on waitlist at [facility] in [place], [place] Total urine output: 1325
[2024-06-12] MEDS: budesonide 0.5 mg/2 mL Neb INHALATION (19:45)
[2024-06-12] MEDS: fentaNYL 1,000 MCG/100 ML BAG 10 MCG IV (20:37)
[2024-06-12] MEDS: atorvastatin 40 mg Tablet PO (20:47)
[2024-06-13] VITALS (63 sets, daily range): BP systolic 86–113; BP diastolic 52–69; PULSE 62–81; RESP 12–15; TEMP 36.3–36.7; O2SAT 94–100; BMI 20.1
[2024-06-13] MEDS: piperacillin-tazobactam 3.375 GM in sodium chloride 0.9% (plus) 50 ML IV ×3 (00:07→15:34)
[2024-06-13] MEDS: midazolam hcl 100 MG/100 ML BAG 6 MG IV (00:27)
[2024-06-13 03:56] LABS: Basophils % 0.1 %; Hematocrit 37.3 % (36-47); Lymphocytes # 0.5 10^3/uL (0.8-4.8); Lymphocytes % 3.3 %; Mean Corpuscular HGB Conc 31.4 g/dL (30-55); Mean Corpuscular Hemoglobin 28.5 pg (27-33); Monocytes # 0.8 10^3/uL (0.2-0.9); Monocytes % 5.7 %; Neutrophils # 12.76 10^3/uL (1.8-7.7); Neutrophils % 90.3 %; Nucleated Red Blood Cells % 0 %; Platelet Count 157 10^3/cmm (157-399); Red Cell Distribution Width 20.4 % (12.1-15.1); White Blood Count 14.12 10^3/uL (3.29-11.43)
[2024-06-13 04:55] LABS: ABG PCO2 38.7 mmHg (35-45); ABG PH Result 7.52 (7.35-7.45); Arterial Blood Gas Hematocrit 43.3 % (37-47); Base Excess ABG 7.9 mmol/L (-2.0-2.0); Blood Gas Operator Identificat JDB; Blood Gas Sample Site Brachial, left; Blood Gas Sample Type Arterial; HCO3 ABG 31.4 mmol/L (22-26); Oxygen Device VENT; PO2 FiO2 Ratio Arterial Blood 143
[2024-06-13] MEDS: fentaNYL 1,000 MCG/100 ML BAG 10 MCG IV ×2 (04:58→14:39)
[2024-06-13 05:57] LABS: Lactate (Lactic Acid level) 1.1 mmol/L (0.5-2.2)
[2024-06-13] MEDS: methylPREDNISolone sod succ 40 mg/mL INJ IVP ×3 (06:03→20:45)
[2024-06-13] MEDS: vancomycin 500 MG in sodium chloride 0.9% (plus) 100 ML 200 MG IV ×2 (06:04→18:15)
[2024-06-13 06:05] LABS: NT Pro B Type Natriuretic Pept 4112 pg/mL (0-125)
[2024-06-13 06:19] LABS: Alanine Aminotransferase 18 U/L (0-33); Albumin Level 3.2 g/dL (3.5-5.2); Alkaline Phosphatase 73 U/L (35-105); Anion Gap 15.4 (5-19); Aspartate Amino Transferase 17 U/L (0-32); Blood Urea Nitrogen 26 mg/dL (8-23); C Reactive Protein 95.5 mg/L (0.0-4.9); Calcium 8.5 mg/dL (8.5-10.5); Carbon Dioxide 27 mmol/L (22-29); Chloride 97 mmol/L (98-107); Creatinine Clr Calc Pharmacy 61.3275; Globulin 2.5 g/dL (1.3-4.6); Glomerular Filtration Rate 71.8 mL/min (90-130); Glucose 108 mg/dL (65-115); Magnesium 2.3 mg/dL (1.7-2.3); Osmolality Calculated 287 mOsm/kg (285-295); Phosphorus 2.6 mg/dL (2.5-4.5); Potassium 3.4 mmol/L (3.5-5.1); Sodium 136 mmol/L (136-145); Total Bilirubin 1.5 mg/dL (0.15-1.2); Total Protein 5.7 g/dL (6.6-8.7)
--- NOTE | 2024-06-13 07:00 | XR_ITS ---
WS: [id number] Exam: XR chest 1V portable [id number] Date/Time of Exam: 06/13/2024 6:43 AM Reason For Exam: sob Comparison 06/12/2024. Endotracheal tube, enteric tube and right-sided PICC line all remain in satisfactory position without change. Bibasal infiltrates are unchanged. There appears to be less pulmonary vascular congestion than noted previously. The heart is slightly smaller. No pneumothorax. Bony structures are intact. XR/XR chest 1V portable [id number] IMPRESSION: 1. Slight decrease in heart size with slightly less pulmonary vascular congesti on noted previously. 2. Bibasal infiltrates showing little change. 3. ET tube, right-sided PICC line and enteric tube all in satisfactory position without change.
[2024-06-13 07:37] LABS: Glucose Point of Care 104 mg/dL (70-110)
[2024-06-13] MEDS: amiodarone 200 mg Tablet PO ×2 (08:45→18:11)
[2024-06-13] MEDS: magnesium lactate 84 mg Tablet PO ×2 (08:45→18:11)
[2024-06-13] MEDS: bisacodyl 5 mg Tablet 10 MG PO (08:45)
[2024-06-13] MEDS: pantoprazole 40 mg SDV IVP ×2 (08:45→20:45)
[2024-06-13] MEDS: polyethylene glycol 3350 Pkt 17 gm PO (08:45)
[2024-06-13] MEDS: predniSONE 10 mg Tablet PO (08:45)
[2024-06-13] MEDS: aspirin 81 mg EC Tablet PO (08:45)
[2024-06-13] MEDS: enoxaparin 60 mg/0.6 mL Syringe SUBCUT ×2 (08:47→20:45)
[2024-06-13] MEDS: ipratropium-albuterol 3 mL Neb INHALATION ×4 (08:53→19:54)
[2024-06-13] MEDS: budesonide 0.5 mg/2 mL Neb INHALATION ×2 (08:53→19:54)
--- NOTE | 2024-06-13 09:17 | XRR_ITS ---
PROCEDURE INFORMATION: Exam: XR Abdomen Exam date and time: 06/13/2024 9:51 AM Age: 64 years old Clinical indication: Other: Distended abdomen TECHNIQUE: Imaging protocol: Radiologic exam of the abdomen. Views: Frontal supine view of the abdomen. 1 View. COMPARISON: CT chest [place]dpel [id number] 06/11/2024 3:07 PM FINDINGS: Gastrointestinal tract: Persistent prominent gaseous distension of bowel. Loops of large bowel are dilated up to at least 9.5 cm. Bones/joints: No distinct acute osseous findings. XR/XR KUB portable [id number] IMPRESSION: Persistent prominent gaseous distension of bowel. Loops of large bowel are dilated up to at least 9.5 cm.
[2024-06-13] MEDS: propofol 1,000 MG/100 ML INJ 1.65 MG IV (09:46)
[2024-06-13 10:42] LABS: Glucose Point of Care 114 mg/dL (70-110)
--- NOTE | 2024-06-13 13:59 | P.PN_ITS ---
<Statement entered by Davide Melendez MD - 06/13/24 20:55> Patient was evaluated and cared for in conjunction with an advanced practice practitioner. I personally examined the patient and reviewed the chart and all pertinent data including imaging, telemetry, and laboratory results. I discussed the patient in detail with the advanced practice practitioner. Please see their note for complete H&P testing result and agreed upon plan of care for the patient. Subjective 2 Subjective: Patient still intubated and sedated. Vital signs are stable. He is not requiring any pressors. Kidney function is still good. Vitals/I&O/Wt Last Vital Signs Temp 98.0 F 06/13/24 09:00 Pulse 74 06/13/24 13:21 Resp 15 06/13/24 11:35 BP 94/59 06/13/24 13:00 Pulse Ox 97 06/13/24 13:00 O2 Del Method Mechanical Ventilation 06/13/24 13:00 O2 Flow Rate 50 06/11/24 16:00 FiO2 60 06/13/24 13:00 06/12/24 06/13/24 06/13/24 22:59 06:59 14:59 Intake Total 315.966 / 638.474 182.6 / 821.074 313.165 / 313.165 Output Total 475 / 1325 650 / 1975 Balance -159.034 / -686.526 -467.4 / -1153.926 313.165 / 313.165 Weight last 48 hrs Weight 121 lb 0.54 oz Weight 121 lb 0.54 oz Physical Exam 2 Narrative: General: Intubated, sedated HENMT: normoceophalic Respiratory: Normal respiratory effort, clear throughout all lung pena, no use of accessory muscles Cardio: No JVD, regular rate, regular rhythm, S1 S2 normal, no murmurs Extremities: No edema Skin: No rashes or lesions noted, no wounds Urinary Catheter Management: Chandler: Cath Placed During This Visit: yes Reason for Continuing Indwelling Catheter: Accurate Measurement of Urinary Output in Critically Ill Patients Urinary Catheter Date of Insertion: 06/07/24 Urinary Catheter Time of Insertion: 12:30 Data 06/13/24 03:29 06/13/24 05:25 Micro: Microbiology 06/12/24 09:20 Gram Stain - Final Sputum - Endotracheal Tube Aspirate Sputum Culture - Preliminary A&P Assessment and plan (1) Acute respiratory failure: (2) Sepsis: Qualifiers: Sepsis acute organ dysfunction status: unspecified Sepsis type: sepsis due to unspecified organism Qualified Code(s): A41.9 - Sepsis, unspecified organism (3) Congestive heart failure: (4) Shock: (5) Pneumonia: Qualifiers: Laterality: unspecified laterality Lung location: unspecified part of lung Pneumonia type: due to unspecified organism Qualified Code(s): J18.9 - Pneumonia, unspecified organism (6) Systemic lupus erythematosus (SLE) in adult: (7) Immunosuppression: (8) Hyperlipidemia: (9) NSTEMI (non-ST elevated myocardial infarction): Plan At this time, it is our understanding that patient's family would like patient transferred. Until then, recommend continue current care. She appears well compensated from a heart failure standpoint. PDMP PDMP Reviewed: Not Reviewed Attestations 2 Medical Necessity Statement*: Deferred to primary. Coding Level of Care Code Acute Code for [facility] Diagnoses Acute respiratory failure J96.00 Sepsis A41.9 Sepsis acute organ dysfunction status: unspecified Sepsis type: sepsis due to unspecified organism Congestive heart failure I50.9 Shock R57.9 Pneumonia J18.9 Laterality: unspecified laterality Lung location: unspecified part of lung Pneumonia type: due to unspecified organism Systemic lupus erythematosus (SLE) in adult M32.9 Immunosuppression D89.9 Hyperlipidemia E78.5 NSTEMI (non-ST elevated myocardial infarction) I21.4
--- NOTE | 2024-06-13 14:48 | PM.CONSULT ---
Providers/Reason For Consult Consulting Physician/Specialty*: Dr. Petty general surgery Reason for Consult*: Colonic ileus Attending Physician: Sebastien Diehl MD Primary Care Provider: GAY Galeana History of Present Illness History of Present Illness Alivia Tomlinson is a 64 year old female who is in the ICU with multiple medical problems whom surgery was consulted for a colonic ileus. Patient has had small bowel movements. Abdomen is distended but otherwise benign. Reviewed CT scan imaging which is compatible with colonic ileus. Medications/Allergies Home Medications ?Medication ?Instructions ?Recorded ?Confirmed ?Last Taken ?Type aspirin 81 mg tablet,delayed 81 mg PO DAILY 02/04/24 06/07/24 06/06/24 History release acyclovir 800 mg tablet 800 mg PO DAILY #30 tabs 04/18/24 06/07/24 Unknown Rx ipratropium 0.5 mg-albuterol 3 mg 3 ml inhalation Q6H PRN wheezing 04/18/24 06/07/24 Unknown Rx (2.5 mg base)/3 mL nebulization #90 mL soln furosemide 20 mg tablet (Lasix) 20 mg PO QAM #30 tabs 05/02/24 06/07/24 06/06/24 Rx potassium chloride 8 mEq 8 meq PO DAILY #30 caps 05/02/24 06/07/24 06/06/24 Rx capsule,extended release spironolactone 25 mg tablet 25 mg PO DAILY #30 tabs 05/02/24 06/07/24 06/06/24 Rx leflunomide 20 mg tablet 20 mg PO DAILY #30 tabs 05/15/24 06/07/24 06/06/24 Rx prednisone 10 mg tablet 10 mg PO DAILY #90 tabs 05/15/24 06/07/24 06/06/24 Rx dapagliflozin propanediol 10 mg 10 mg PO QAM #30 tabs 05/23/24 06/07/24 06/06/24 Rx tablet (Farxiga) Allergies Allergy/AdvReac Type Severity Reaction Status Date / Time No Known Allergies Allergy Verified 06/06/24 11:01 Current Medications Generic Name Dose Route Start Last Admin Trade Name Freq PRN Reason Stop Dose Admin Acetaminophen 650 mg 06/06/24 20:09 06/11/24 00:30 Acetaminophen 325 Mg Tablet PO 650 mg Q6H PRN Administration Mild/Mod Pain Or Temp >/= 101 Albuterol/Ipratropium 3 ml 06/06/24 20:09 06/13/24 11:46 Ipratropium-Albuterol 3 Ml Neb INHALATION 3 ml QID.RESPIRATORY ZAYRA Administration Amiodarone HCl 200 mg 06/10/24 18:00 06/13/24 08:45 Amiodarone 200 Mg Tablet PO 200 mg BID ZAYRA Administration Aspirin 81 mg 06/06/24 20:09 06/13/24 08:45 Aspirin 81 Mg Ec Tablet PO 81 mg DAILY ZAYRA Administration Atorvastatin Calcium 40 mg 06/06/24 21:00 06/12/24 20:47 Atorvastatin 40 Mg Tablet PO 40 mg BEDTIME ZAYRA Administration Bisacodyl 10 mg 06/09/24 14:05 06/13/24 08:45 Bisacodyl 5 Mg Tablet PO 10 mg DAILY ZAYRA Administration Budesonide 0.5 mg 06/06/24 20:09 06/13/24 08:53 Budesonide 0.5 Mg/2 Ml Neb INHALATION 0.5 mg BID.RESPIRATORY ZAYRA Administration Enoxaparin Sodium 60 mg 06/11/24 09:30 06/13/24 08:47 Enoxaparin 60 Mg/0.6 Ml Syringe SUBCUT 60 mg Q12H ZAYRA Administration Piperacillin Sod/Tazobactam 50 mls @ 12.5 mls/hr 06/07/24 00:30 06/13/24 13:23 Sod 3.375 gm/ Sodium Chloride IV Infused Q8H ZAYRA Infusion Norepinephrine Bitartrate 4 mg in 250 mls @ 0 mls/hr 06/07/24 11:00 06/10/24 22:30 Levophed IV 0 mcg/min .Q0M ZAYRA 0 mls/hr Titration Protocol Per Protocol Dexmedetomidine/Sodium Chloride 400 mcg in 100 mls @ 0 mls/hr 06/09/24 02:00 06/12/24 18:00 Precedex IV Infused .Q0M ZAYRA Titration Protocol Per Protocol Vancomycin HCl 500 mg/ Sodium 100 mls @ 200 mls/hr 06/12/24 07:00 06/13/24 09:43 Chloride IV Infused Q12H ZAYRA Infusion Fentanyl 1,000 mcg in 100 mls @ 0 mls/hr 06/12/24 08:45 06/13/24 14:39 Sublimaze IV 100 mcg/hr .Q0M ZAYRA 10 mls/hr Administration Protocol Per Protocol Midazolam HCl 100 mg in 100 mls @ 0 mls/hr 06/12/24 08:45 06/13/24 13:29 Versed IV 0 mg/hr .Q0M ZAYRA 0 mls/hr Titration Protocol Per Protocol Propofol 1,000 mg in 100 mls @ 0 mls/hr 06/13/24 09:30 06/13/24 10:19 Diprivan IV 30 mcg/kg/min .Q0M ZAYRA 9.88 mls/hr Titration Protocol Per Protocol Insulin Human Lispro 0 unit 06/07/24 08:00 06/13/24 11:17 Insulin Lispro 100 Unit/1 Ml SUBCUT Not Given TIDWM ZAYRA Protocol Magnesium Lactate 84 mg 06/08/24 15:20 06/13/24 08:45 Magnesium Lactate 84 Mg Tablet PO 84 mg BID ZAYRA Administration Methylprednisolone Sodium Succinate 40 mg 06/11/24 21:00 06/13/24 13:24 Methylprednisolone Sod Succ 40 Mg/Ml Inj IVP 40 mg Q8H ZAYRA Administration Morphine Sulfate 2 mg 06/06/24 20:09 06/12/24 08:26 Morphine 4 Mg/Ml Sdv 1 Ml IVP 2 mg Q4H PRN Administration SEVERE PAIN Ondansetron HCl 4 mg 06/06/24 20:09 06/09/24 04:03 Ondansetron 2 Mg/Ml Sdv 2 Ml IVP 4 mg Q8H PRN Administration vomiting, or N/V if npo Pantoprazole Sodium 40 mg 06/06/24 20:09 06/13/24 08:45 Pantoprazole 40 Mg Sdv IVP 40 mg Q12H ZAYRA Administration Prednisone 10 mg 06/07/24 09:00 06/13/24 08:45 Prednisone 10 Mg Tablet PO 10 mg DAILY ZAYRA Administration Simethicone 80 mg 06/11/24 13:56 06/11/24 14:20 Simethicone 80 Mg Chew PO 80 mg QID PRN Administration FLATULENCE Sodium Chloride 1 spray 06/08/24 16:04 06/08/24 16:30 Saline Nasal [place] 44ml Btl NASAL 1 spray PRN PRN Administration DRYNESS PFSH Acute PFSH: Medical History Cutaneous lupus erythematosus Seronegative rheumatoid arthritis of both hands Suppression of immune system subtherapeutic Macrocytosis Immunization counseling Muscle weakness (generalized) Gastro-esophageal reflux disease without esophagitis Vitamin D deficiency High risk medication use Osteoarthritis Generalized anxiety disorder Chronic pruritus Colon cancer screening declined Systemic lupus erythematosus, unspecified 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, bilateral 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 Immunosuppression Systemic lupus erythematosus (SLE) in adult Surgical History History of ectopic Family History Mother , age 32 CAD (coronary artery disease) Family/Other Cancer Social History Smoking and tobacco/nicotine status: current every day tobacco/nicotine user cigarettes Packs smoked per day: 1 Years cigarettes smoked: 50 Second hand smoke exposure: No Alcohol intake: current Alcohol intake frequency: few times a week Substance/Drug Use: unknown Adopted: No Caregiver/support person: No Lives independently: Yes Household members: spouse Housing: House Marital status: Number of children: 3 Number of grandchildren: 7 service: No Current occupational status: disabled Previous occupational history: [employer] Do you think of yourself as: Straight/Heterosexual Current gender identity: Female Vitals/I&O/Wt Last Vital Signs Temp 98.0 F 06/13/24 09:00 Pulse 70 06/13/24 14:00 Resp 14 06/13/24 14:23 BP 97/60 06/13/24 14:00 Pulse Ox 97 06/13/24 14:23 O2 Del Method Mechanical Ventilation 06/13/24 14:00 O2 Flow Rate 50 06/11/24 16:00 FiO2 60 06/13/24 14:23 06/12/24 06/13/24 06/13/24 22:59 06:59 14:59 Intake Total 315.966 / 638.474 182.6 / 821.074 318.665 / 318.665 Output Total 475 / 1325 650 / 1975 425 / 425 Balance -159.034 / -686.526 -467.4 / -1153.926 -106.335 / -106.335 Weight last 48 hrs Weight 121 lb 0.54 oz Weight 121 lb 0.54 oz Physical Exam Narrative: Chest: Intubated sedated on vent Heart: Regular rate and rhythm. Abdomen: Soft and distended Urinary Catheter Management: Chandler: Cath Placed During This Visit: yes Reason for Continuing Indwelling Catheter: Accurate Measurement of Urinary Output in Critically Ill Patients Urinary Catheter Date of Insertion: 06/07/24 Urinary Catheter Time of Insertion: 12:30 Data 06/13/24 03:29 06/13/24 05:25 Micro: Microbiology 06/12/24 09:20 Gram Stain - Final Sputum - Endotracheal Tube Aspirate Sputum Culture - Preliminary A&P Assessment and plan (1) Ileus: Plan 64-year-old female in the ICU for multiple medical problems. Surgery consulted for colonic ileus. Reviewed CT scan imaging which does not reveal any evidence of obstruction. Recommend working on medical issues since ileus is secondary to these. Can try a Dulcolax suppository or enemas. Will follow. PDMP PDMP Reviewed: Not Reviewed Coding Level of Care Code 58204 Diagnoses Ileus K56.7
[2024-06-13] MEDS: lidocaine 1% 5 ML in potassium chloride premix 100 ML 26.25 ML IV (15:19)
--- NOTE | 2024-06-13 16:32 | PM.PN ---
Subjective Subjective: - Patient was seen this morning, she is down to 80% FiO2, on fentanyl, Versed for sedation, afebrile overnight, normotensive - Spoke to [facility], patient remains on the wait list - Spoke to [facility], currently they are on hold, no ICU beds - Patient appears euvolemic, - On examination abdomen is a bit distended, KUB ordered, with evidence of ileus, spoke to general surgery, will consult - Patient was seen again this afternoon, on 60% FiO2, is at bedside, discussed patient's acute respiratory distress syndrome, discussed my discussions with [facility], [facility], he would prefer [facility], we did discuss trying a local hospital for transfer however he declines for now - Discussed patient's acute respiratory distress syndrome, will monitor respiratory status closely discussed patient's x-ray studies, CT scan abdomen pelvis studies, general surgery consultation, plan for medical management, Vitals/I&O/Wt Last Vital Signs Temp 98.0 F 06/13/24 09:00 Pulse 67 06/13/24 16:00 Resp 12 06/13/24 15:35 BP 91/58 06/13/24 16:00 Pulse Ox 97 06/13/24 16:00 O2 Del Method Mechanical Ventilation 06/13/24 16:00 O2 Flow Rate 50 06/11/24 16:00 FiO2 60 06/13/24 16:00 06/13/24 06/13/24 06/13/24 06:59 14:59 22:59 Intake Total 182.6 / 821.074 318.665 / 318.665 Output Total 650 / 1975 425 / 425 Balance -467.4 / -1153.926 -106.335 / -106.335 Weight last 48 hrs Weight 54.9 kg Weight 54.9 kg Physical Exam Const: COMMON NORMALS: no acute distress Resp: COMMON NORMALS: normal respiratory effort, No retractions, No use of accessory muscles and clear to auscultation bilaterally AUSCULTATION: clear to auscultation bilaterally Cardio: COMMON NORMALS: regular rate, regular rhythm, S1 normal heart sound present and S2 normal heart sound present RATE: regular rate RHYTHM: regular rhythm HEART SOUNDS: S1 normal heart sound present and S2 normal heart sound present GI: OTHER: Abdomen soft, distended, good bowel sounds, no guarding, no rebound, no rigidity, Extremity: COMMON NORMALS: no pedal edema Urinary Catheter Management: Chandler: Cath Placed During This Visit: yes Reason for Continuing Indwelling Catheter: Accurate Measurement of Urinary Output in Critically Ill Patients Urinary Catheter Date of Insertion: 06/07/24 Urinary Catheter Time of Insertion: 12:30 Data 06/13/24 03:29 06/13/24 05:25 Micro: Microbiology 06/12/24 09:20 Gram Stain - Final Sputum - Endotracheal Tube Aspirate Sputum Culture - Preliminary A&P Assessment and plan (1) Acute respiratory failure: (2) Sepsis: Qualifiers: Sepsis acute organ dysfunction status: unspecified Sepsis type: sepsis due to unspecified organism Qualified Code(s): A41.9 - Sepsis, unspecified organism (3) Congestive heart failure: (4) Shock: (5) Pneumonia: Qualifiers: Laterality: unspecified laterality Lung location: unspecified part of lung Pneumonia type: due to unspecified organism Qualified Code(s): J18.9 - Pneumonia, unspecified organism (6) Systemic lupus erythematosus (SLE) in adult: (7) Immunosuppression: (8) Hyperlipidemia: (9) NSTEMI (non-ST elevated myocardial infarction): (10) Acute respiratory distress syndrome: (11) Aspiration pneumonia: (12) Aspiration pneumonitis: (13) Ileus: (14) Ascites: Plan Acute hypoxic respiratory failure - Now with acute respiratory distress syndrome, secondary to aspiration event -With acute respiratory distress -With aspiration pneumonia, aspiration pneumonitis, aspiration event -Certainly CHF is playing a role, -Given her immunocompromise state, her recent history of multiple infections, cough -COPD CTA CT/CT angio chest PE protcl [id number] IMPRESSION: 1. Constellation of findings is most compelling for heart failure including severe cardiomegaly, bilateral pleural effusions, distension of the superior and inferior vena cava, and small pericardial effusion. 2. Enlarged pulmonary artery tree is compatible with chronic PA hypertension. No findings of acute pulmonary embolism. 3. Advanced arterial disease. No findings of acute aortic dissection. Additional assessment the aorta is limited by contrast bolus timing and patient motion. There is probably high-grade stenosis at the origin of the left subclavian artery. Moderate stenosis of the proximal common carotid arteries noted. Cardiac echo CONCLUSIONS LV systolic function is moderately reduced with EF of 35-40% RV appears dilated and severely hypokinetic. Left atrial dilation Mild mitral regurgitation Mild tricuspid regurgitation. Trace pericardial effusion No comparison studies are available. CT chest - CT/[place] [id number] IMPRESSION: 1. Bilateral lower lung predominant opacity is progressive since 06/09/2024. Some component of segmental atelectasis is present. Superimposed aspiration or infection cannot be excluded. 2. Marked cardiac enlargement. 3. Bilateral pleural effusions are progressive since 06/09/2024. 4. Anasarca is progressive since 06/09/2024. 5. Incidental findings above. - On 100% BiPAP, with evidence of respiratory distress, PaO2/FiO2 ratio of 66, decision with consent of patient and to electively intubate patient, intubated Plan -Will monitor in ICU - Intubated, sedated mechanical ventilation - Minimize tidal volume, minimize FiO2 - ARDS protocol for ventilator - Continue vancomycin, Zosyn -Solu-Medrol 40 mg IV every 8 hours -Blood cultures -Sputum culture - Appears euvolemic hold off of further Lasix therapy -Started on Levophed to maintain MAP in 65 -PICC line -DuoNeb, budesonide Pulmonary hypertension, with RV appearing to be dilated and severely hypokinetic, with underlying COPD - All indicated of pulm hypertension, right-sided heart failure, due to underlying COPD Ileus -CT abdomen pelvis shows diffusely distended colon without evidence of high-grade obstruction or wall thickening to indicate inflammation, probable ileus - KUB this morning shows persistent prominent gaseous distention of the bowel, large bowel are dilated up to 9.5 cm - General Surgery consulted Moderate ascites, 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 hydrothorax, from congestive hepatopathy Anasarca, bilateral pleural effusions, moderate ascites - Appears euvolemic hold off on Lasix - With moderate ascites will consider paracentesis based on clinical progress - LFTs within normal limits - Ascites could be cardiac in etiology given low EF right-sided heart failure Aspiration pneumonitis -Resulting in respiratory failure -Now progressing to acute respiratory distress syndrome -CT scan abdomen pelvis does not show any evidence of bowel obstruction, but does show ileus -Zofran, Reglan for nausea vomiting -Speech therapy eval -Aspiration precautions Shock, currently off Levophed -Likely cardiogenic shock given EF of 35% -Component of sepsis also difficult to rule out -Will monitor in ICU -Levophed , maintain MAP more than 65 -Is chronically on prednisone, risk of adrenal insufficiency, status post 1 dose hydrocortisone SVT versus atrial fibrillation -Did not respond to 2 doses of atropine, conservative intervention -Amiodarone bolus, amiodarone drip, converted to normal sinus rhythm - Transition to p.o. amiodarone Chest pain complaints, NSTEMI -No active chest pain -EKGs, serial troponins, telemetry monitoring -Aspirin, statin -Cardiac echo CONCLUSIONS LV systolic function is moderately reduced with EF of 35-40% RV appears dilated and severely hypokinetic. Left atrial dilation Mild mitral regurgitation Mild tricuspid regurgitation. Trace pericardial effusion No comparison studies are available. -therapeutic Lovenox - Concern for ischemic cardiomyopathy, had plans on coronary angiography, currently on hold given respiratory failure as above CHF exacerbation, biventricular heart failure, systolic -Lasix on hold -On Levophed to maintain MAP greater than 65 -Cardiology consulted -Might require pressors to maintain MAP greater than 65 while diuresing -Cardiac echo, as above History of COPD Immunocompromise state with lupus, continue prednisone, hold leflunomide -Potentially lupus could be playing a role in patient's NSTEMI, CHF Prediabetes, low-dose sliding scale Full code Lovenox for DVT prophylaxis Protonix for GI prophylaxis Plan for today Rx protocol, monitor respiratory status closely, IV antibiotics, IV steroids, spoke to [facility] , spoke to tertiary level facility PDMP PDMP Reviewed: Not Reviewed Attestations Medical Necessity Statement*: Patient requires hospitalization for acute respiratory distress syndrome, CHF, ileus Coding Level of Care Code Critical Care >/= 30 minutes Critical care time (in minutes): 45 The high probability of a clinically significant, sudden or life threatening deterioration, as referenced in this documentation, required my full and direct attention, intervention and personal management. The critical care time shown is in addition to time spent performing any reported separately billable procedures and includes the following: [x] Data and vital sign review and interpretation [x] Patient assessment, examination and intervention [x] Medication orders and management [x] Patient/Family updates as able [x] Care Coordination and Documentation. Diagnoses Acute respiratory failure J96.00 Sepsis A41.9 Sepsis acute organ dysfunction status: unspecified Sepsis type: sepsis due to unspecified organism Congestive heart failure I50.9 Shock R57.9 Pneumonia J18.9 Laterality: unspecified laterality Lung location: unspecified part of lung Pneumonia type: due to unspecified organism Systemic lupus erythematosus (SLE) in adult M32.9 Immunosuppression D89.9 Hyperlipidemia E78.5 NSTEMI (non-ST elevated myocardial infarction) I21.4 Acute respiratory distress syndrome J80 Aspiration pneumonia J69.0 Aspiration pneumonitis J69.0 Ileus K56.7 Ascites R18.8
[2024-06-13 16:39] LABS: ABG PCO2 48.5 mmHg (35-45); ABG PH Result 7.45 (7.35-7.45); Arterial Blood Gas Hematocrit 38.9 % (37-47); Base Excess ABG 8.8 mmol/L (-2.0-2.0); Blood Gas Allen Test Pos; Blood Gas Sample Type Arterial; Carboxyhemoglobin 0.8 %THgb (0.4-20.1); HCO3 ABG 34.1 mmol/L (22-26); HGB O2 Sat 96.5 % (95-100); Ionized Calcium Level - ABG 1.2 mmol/L (1.1-1.4); Methemoglobin 1.1 % (0.4-1.5); Oxygen Saturation ABG 98.4; Potassium Level - ABG 3.9 mmol/L (3.5-5.0); Total Hemoglobin 12.7 g/dL (12-16)
[2024-06-13 16:41] LABS: Alveolar-Arterial Oxygen Gradi 33.9 mmHg (5-10); Blood Gas Operator Identificat GD; Blood Gas Sample Site Radial, right; Blood Gas Tidal Volume 0.35; Oxygen Device VENT; PO2 FiO2 Ratio Arterial Blood 180
[2024-06-13 17:06] LABS: Glucose Point of Care 144 mg/dL (70-110)
[2024-06-13] MEDS: insulin lispro 100 unit/1 mL SUBCUT (18:10)
[2024-06-13] MEDS: atorvastatin 40 mg Tablet PO (20:45)
[2024-06-13] MEDS: propofol 1,000 MG/100 ML INJ 9.88 MG IV (21:02)
[2024-06-14] VITALS (46 sets, daily range): BP systolic 87–110; BP diastolic 52–67; PULSE 58–76; RESP 12–23; TEMP 36.9; O2SAT 96–98; BMI 20.1
[2024-06-14] MEDS: piperacillin-tazobactam 3.375 GM in sodium chloride 0.9% (plus) 50 ML IV ×2 (00:05→08:31)
[2024-06-14] MEDS: fentaNYL 1,000 MCG/100 ML BAG 10 MCG IV (00:14)
[2024-06-14] MEDS: chlorhexidine gluconate 4% Btl 118 mL 1 APPLIC TOPICAL (03:01)
[2024-06-14 04:03] LABS: ABG PCO2 43.6 mmHg (35-45); ABG PH Result 7.48 (7.35-7.45); Arterial Blood Gas Hematocrit 37.8 % (37-47); Base Excess ABG 7.9 mmol/L (-2.0-2.0); Blood Gas Allen Test Pos; Blood Gas Operator Identificat JDB; Blood Gas Sample Site Brachial, left; Blood Gas Sample Type Arterial; Blood Gas Tidal Volume 0.35; HCO3 ABG 32.4 mmol/L (22-26); Oxygen Device VENT; PO2 FiO2 Ratio Arterial Blood 196
[2024-06-14 04:13] LABS: Basophils % 0.1 %; Hematocrit 37.2 % (36-47); Lymphocytes # 0.5 10^3/uL (0.8-4.8); Lymphocytes % 3.9 %; Mean Corpuscular HGB Conc 31.5 g/dL (30-55); Mean Corpuscular Hemoglobin 28.6 pg (27-33); Mean Platelet Volume 9.7 fL (7.4-10.4); Monocytes # 0.8 10^3/uL (0.2-0.9); Monocytes % 6.3 %; Neutrophils # 11.76 10^3/uL (1.8-7.7); Neutrophils % 89.2 %; Nucleated Red Blood Cells % 0 %; Platelet Count 162 10^3/cmm (157-399); Red Blood Count 4.09 10^6/uL (3.85-5.65); Red Cell Distribution Width 20.6 % (12.1-15.1); White Blood Count 13.18 10^3/uL (3.29-11.43)
[2024-06-14 04:34] LABS: Alanine Aminotransferase 17 U/L (0-33); Albumin Level 3.2 g/dL (3.5-5.2); Alkaline Phosphatase 70 U/L (35-105); Anion Gap 14.4 (5-19); Aspartate Amino Transferase 17 U/L (0-32); Blood Urea Nitrogen 26 mg/dL (8-23); Calcium 8.7 mg/dL (8.5-10.5); Carbon Dioxide 28 mmol/L (22-29); Chloride 100 mmol/L (98-107); Creatinine Clr Calc Pharmacy 61.3275; Globulin 2.8 g/dL (1.3-4.6); Glomerular Filtration Rate 71.8 mL/min (90-130); Glucose 116 mg/dL (65-115); Magnesium 2.5 mg/dL (1.7-2.3); Osmolality Calculated 292 mOsm/kg (285-295); Phosphorus 2.4 mg/dL (2.5-4.5); Potassium 4.4 mmol/L (3.5-5.1); Sodium 138 mmol/L (136-145); Total Bilirubin 1.2 mg/dL (0.15-1.2)
[2024-06-14 04:35] LABS: Lactate (Lactic Acid level) 1.3 mmol/L (0.5-2.2)
[2024-06-14 04:45] LABS: NT Pro B Type Natriuretic Pept 3971 pg/mL (0-125); Procalcitonin 0.09 ng/mL (0-0.5)
[2024-06-14 04:46] LABS: C Reactive Protein 95.7 mg/L (0.0-4.9)
[2024-06-14] MEDS: methylPREDNISolone sod succ 40 mg/mL INJ IVP ×2 (06:06→12:01)
[2024-06-14] MEDS: vancomycin 500 MG in sodium chloride 0.9% (plus) 100 ML 200 MG IV (06:07)
[2024-06-14] MEDS: budesonide 0.5 mg/2 mL Neb INHALATION (07:34)
[2024-06-14] MEDS: ipratropium-albuterol 3 mL Neb INHALATION ×2 (07:34→11:21)
[2024-06-14] MEDS: fentaNYL 1,000 MCG/100 ML BAG 15 MCG IV ×2 (07:35→13:25)
[2024-06-14 07:49] LABS: Glucose Point of Care 110 mg/dL (70-110)
[2024-06-14] MEDS: propofol 1,000 MG/100 ML INJ 18.12 MG IV (08:22)
[2024-06-14] MEDS: enoxaparin 60 mg/0.6 mL Syringe SUBCUT (08:30)
[2024-06-14] MEDS: bisacodyl 5 mg Tablet 10 MG PO (08:30)
[2024-06-14] MEDS: amiodarone 200 mg Tablet PO (08:31)
[2024-06-14] MEDS: magnesium lactate 84 mg Tablet PO (08:31)
[2024-06-14] MEDS: pantoprazole 40 mg SDV IVP (08:31)
[2024-06-14] MEDS: aspirin 81 mg EC Tablet PO (08:31)
--- NOTE | 2024-06-14 11:28 | PC.SOCIAL ---
IMM Update pg 2 of IMM updated and reviewed w/ patients . Copy provided and copy dated, initialed and placed in chart.
[2024-06-14] MEDS: insulin lispro 100 unit/1 mL SUBCUT (11:59)
--- NOTE | 2024-06-14 12:22 | PM.PN ---
Subjective Subjective: No changes to her physical exam Abdomen distended Vitals/I&O/Wt Last Vital Signs Temp 98.5 F 06/14/24 09:30 Pulse 66 06/14/24 11:27 Resp 12 06/14/24 11:22 BP 91/58 06/14/24 10:00 Pulse Ox 97 06/14/24 11:22 O2 Del Method Mechanical Ventilation 06/14/24 11:18 O2 Flow Rate 50 06/11/24 16:00 FiO2 60 06/14/24 11:22 06/13/24 06/14/24 06/14/24 22:59 06:59 14:59 Intake Total 351.952 / 670.617 173.500 / 844.117 310.157 / 310.157 Output Total 500 / 925 425 / 1350 100 / 100 Balance -148.048 / -254.383 -251.500 / -505.883 210.157 / 210.157 Weight last 48 hrs Weight 121 lb 0.54 oz Weight 121 lb 0.54 oz Physical Exam Narrative: Chest: Intubated sedated on vent Heart: Regular rate and rhythm. Abdomen: Soft, distended Urinary Catheter Management: Chandler: Cath Placed During This Visit: yes Reason for Continuing Indwelling Catheter: Accurate Measurement of Urinary Output in Critically Ill Patients Urinary Catheter Date of Insertion: 06/07/24 Urinary Catheter Time of Insertion: 12:30 Data 06/14/24 03:33 06/14/24 03:33 Micro: Microbiology 06/12/24 09:20 Gram Stain - Final Sputum - Endotracheal Tube Aspirate Sputum Culture - Final A&P Assessment and plan (1) Ileus: Plan 64-year-old female surgery consulted for ileus. Continue treating medical problems. No surgery indicated. PDMP PDMP Reviewed: Not Reviewed Attestations Medical Necessity Statement*: N/A Coding Level of Care Code Acute Code for [facility] Fw Diagnoses Ileus K56.7
[2024-06-14] MEDS: propofol 1,000 MG/100 ML INJ 16.47 MG IV (13:25)
--- NOTE | 2024-06-14 13:33 | PC.NURSE ---
Report was called to [facility] in [facility] in [place]. All updates were given. Patient is going to bed 15 in the MICU unit. Phone number is [phone]. Family in the room getting updates.
--- NOTE | 2024-06-14 13:40 | P.PN_ITS ---
Subjective 2 Subjective: - Patient was seen this morning, - No acute events overnight - Afebrile, normotensive, 60% FiO2 urine output 1 L - She does awaken, on minimal sedation, - Spoke to [facility] this morning, and that [facility] do not have any ICU beds - Spoke to [facility], currently the y do not have any beds, and as patient is not a [place] resident they are prioritizing [place] residence at this time - Patient was seen early in the morning, family members at bedside, discussed patient's acute respiratory distress syndrome, plan to continue antibiotics, steroids, watching her fluid status considering Lasix based on clinical progress, will consider oral gastric tube feedings - Discussed my conversations with [facility], family does tell me that they have property in [place], and she does have a [place] license - I submitted information to [facility], spoke to their transfer center, they have taken all information, but did not provide me any more direction if she was accepted or not, or if there was any beds, but we did fax over facesheet - Spoke with family again, they want us to try local hospitals to see if she could be transferred sooner, - [facility] do not have any beds - I spoke to [facility], currently do have ICU beds, spoke to their transfer center, spoke to their oral and maxillofacial surgery, need for transfer was needed for pulmonary, possible bronchoscopy, patient's family's request for higher level care -We discussed patient's initial hospital ization for CHF, requiring IV diuresis, with discovery of EF of 35%, then optimization of her fluid status, plan on coronary angiography last Wednesday however she developed significant aspiration event, aspiration pneumonitis resulting in respiratory failure and then progressing to acute respiratory distress syndrome requiring intubation, currently in respiratory failure, acute respiratory distress syndrome, requiring intubation, mechanical ventilation, systolic CHF EF of 35%, once her respiratory status is improved, certainly she could be a candidate for coronary angiography, evidence of right-sided heart failure likely secondary pulm hypertension, immunocompromise state on chronic prednisone and leflunomide, has been on antibiotics since admission there is been a question about opacity in the mid to lower lung bilaterally, thus I had her on vancomycin and Zosyn's since her admission, but since her aspiration event, her imaging shows now right lower lobe pneumonia, CAT scans now showing evidence of ileus, but no bowel obstruction, general surgery has been consulted, being medically managed - Patient has been excepted by intensivyudelka reid at [facility], - I spoke to patient's and famil y - Options I discussed was giving her brenna wilder here at [facility], with acute respiratory distress syndrome, potentially weaning ventilation, over the next few days, trial of extubation potential placement at [facility] facility such [facility] - Other options I discussed was waiting to see if [facility] would accept Alivia, but that does not guarantee to bed, - Other option I discussed was transferr ing her to [facility], as this is the only local facility that has beds available to her, and has pulmonary available to her - After discussing the risk and benefits of all options, patient's voiced understanding, all questions answered, shared decision making, agreed to proceed with transfer to [facility] in [place] - Transfer process was initiated, will s ee if [facility] can take her Vitals/I&O/Wt Last Vital Signs Temp 98.5 F 06/14/24 09:30 Pulse 70 06/14/24 13:30 Resp 23 H 06/14/24 13:17 BP 89/55 06/14/24 13:30 Pulse Ox 97 06/14/24 13:30 O2 Del Method Mechanical Ventilation 06/14/24 13:30 O2 Flow Rate 50 06/11/24 16:00 FiO2 60 06/14/24 13:30 06/13/24 06/14/24 06/14/24 22:59 06:59 14:59 Intake Total 351.952 / 670.617 173.500 / 844.117 395.024 / 395.024 Output Total 500 / 925 425 / 1350 100 / 100 Balance -148.048 / -254.383 -251.500 / -505.883 295.024 / 295.024 Weight last 48 hrs Weight 54.9 kg Weight 54.9 kg Physical Exam 2 Const: COMMON NORMALS: no acute distress Resp: COMMON NORMALS: normal respiratory effort, No retractions, No use of accessory muscles and clear to auscultation bilaterally AUSCULTATION: clear to auscultation bilaterally Cardio: COMMON NORMALS: regular rate, regular rhythm, S1 normal heart sound present and S2 normal heart sound present RATE: regular rate RHYTHM: r egular rhythm HEART SOUNDS: S1 normal heart sound present and S2 normal heart sound present GI: OTHER: Abdomen soft, distended, good bowel sounds, no guarding, no rebound, no rigidity Extremity: COMMON NORMALS: no pedal edema Urinary Catheter Management: Chandler: Cath Placed During This Visit: yes Reason for Continuing Indwelling Catheter: Accurate Measurement of Urinary Output in Critically Ill Patients Urinary Catheter Date of Insertion: 06/07/24 Urinary Catheter Time of Insertion: 12:30 Data 06/14/24 03:33 06/14/24 03:33 Micro: Microbiology 06/12/24 09:20 Gram Stain - Final Sputum - Endotracheal Tube Aspirate Sputum Culture - Final A&P Assessment and plan (1) Acute respiratory failure: (2) Sepsis: Qualifiers: Sepsis acute organ dysfunction status: unspecified Sepsis type: sepsis due to unspecified organism Qualified Code(s): A41.9 - Sepsis, unspecified organism (3) Congestive heart failure: (4) Shock: (5) Pneumonia: Qualifiers: Laterality: unspecified laterality Lung location: unspecified part of lung Pneumonia type: due to unspecified organism Qualified Code(s): J18.9 - Pneumonia, unspecified organism (6) Systemic lupus erythematosus (SLE) in adult: (7) Immunosuppression: (8) Hyperlipidemia: (9) NSTEMI (non-ST elevated myocardial infarction): (10) Acute respiratory distress syndrome: (11) Aspiration pneumonia: (12) Aspiration pneumonitis: (13) Ileus: (14) Ascites: Plan Acute hypoxic respiratory failure - Now with acute respiratory distress syndrome, secondary to aspiration event -With acute respiratory distress -With aspiration pneumonia, aspiration pneumonitis, aspiration event -Certainly CHF is playing a role, -Given her immunocompromise state, her recent history of multiple infections, cough -COPD CTA CT/CT angio chest PE protcl [id number] IMPRESSION: 1. Constellation of findings is most compelling for heart failure including severe cardiomegaly, bilateral pleural effusions, distension of the superior and inferior vena cava, and small pericardial effusion. 2. Enlarged pulmonary artery tree is compatible with chronic PA hypertension. No findings of acute pulmonary embolism. 3. Advanced arterial disease. No findings of acute aortic dissection. Additional assessment the aorta is limited by contrast bolus timing and patient motion. There is probably high-grade stenosis at the origin of the left subclavian artery. Moderate stenosis of the proximal common carotid arteries noted. Cardiac echo CONCLUSIONS LV systolic function is moderately reduced with EF of 35-40% RV appears dilated and severely hypokinetic. Left atrial dilation Mild mitral regurgitation Mild tricuspid regurgitation. Trace pericardial effusion No comparison studies are available. CT chest - CT/[place] [id number] IMPRESSION: 1. Bilateral lower lung predominant opacity is progressive since 06/09/2024. Some component of segmental atelectasis is present. Superimposed aspiration or infection cannot be excluded. 2. Marked cardiac enlargement. 3. Bilateral pleural effusions are progressive since 06/09/2024. 4. Anasarca is progressive since 06/09/2024. 5. Incidental findings above. - On 100% BiPAP, with evidence of respiratory distress, PaO2/FiO2 ratio of 66, decision with consent of patient and to electively intubate patient, intubated Plan -Will monitor in ICU - Intubated, sedated mechanical ventilation - Minimize tidal volume, minimize FiO2 - ARDS protocol for ventilator - Continue vancomycin, Zosyn -Solu-Medrol 40 mg IV every 8 hours -Blood cultures -Sputum culture - Appears euvolemic hold off of further Lasix therapy -Started on Levophed to maintain MAP in 65 -PICC line -DuoNeb, budesonide Pulmonary hypertension, with RV appearing to be dilated and severely hypokinetic, with underlying COPD -CT scan shows enlarged pulmonary arteries compatible with chronic PE hypertension - All indicative of pulmonary hypertension, right-sided heart failure, due to underlying COPD Ileus -CT abdomen pelvis shows diffusely distended colon without evidence of high- grade obstruction or wall thickening to indicate inflammation, probable ileus - KUB this morning shows persistent prominent gaseous distention of the bowel, large bowel are dilated up to 9.5 cm - General Surgery consulted - Medical management Moderate ascites, 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 hydrothorax, from congestive hepatopathy Anasarca, bilateral pleural effusions, moderate ascites - Appears euvolemic hold off on Lasix - With moderate ascites will consider paracentesis based on clinical progress - LFTs within normal limits - Ascites could be cardiac in etiology given low EF right-sided heart failure Aspiration pneumonitis -Resulting in respiratory failure -Now progressing to acute respiratory distress syndrome -CT scan abdomen pelvis does not show any evidence of bowel obstruction, but does show ileus -Zofran, Reglan for nausea vomiting -Speech therapy eval -Aspiration precautions Shock, currently off Levophed -Likely cardiogenic shock given EF of 35% -Component of sepsis also difficult to rule out, remains off pressors, blood cultures so far no growth, remains afebrile, lactic acid within normal limits -Will monitor in ICU -Levophed as needed, maintain MAP more than 65 -Is chronically on prednisone, risk of adrenal insufficiency, status post 1 dose hydrocortisone SVT versus atrial fibrillation -Did not respond to 2 doses of atropine, conservative intervention -Amiodarone bolus, amiodarone drip, converted to normal sinus rhythm - Transition to p.o. amiodarone Chest pain complaints, NSTEMI -No active chest pain -EKGs, serial troponins, telemetry monitoring -Aspirin, statin -Cardiac echo CONCLUSIONS LV systolic function is moderately reduced with EF of 35-40% RV appears dilated and severely hypokinetic. Left atrial dilation Mild mitral regurgitation Mild tricuspid regurgitation. Trace pericardial effusion No comparison studies are available. -therapeutic Lovenox - Concern for ischemic cardiomyopathy, had plans on coronary angiography, currently on hold given respiratory failure as above, will likely need in the near future patient clinical progress CHF exacerbation, biventricular heart failure, systolic -Lasix on hold -On Levophed to maintain MAP greater than 65 -Cardiology consulted -Might require pressors to maintain MAP greater than 65 while diuresing -Cardiac echo, as above History of COPD Immunocompromise state with lupus, continue prednisone, hold leflunomide -Potentially lupus could be playing a role in patient's NSTEMI, CHF Prediabetes, low-dose sliding scale 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, will transfer to [facility] PDMP PDMP Reviewed: Not Reviewed Attestations 2 Medical Necessity Statement*: Patient requires hospitalization for acute hypoxic respiratory failure, acute respiratory distress syndrome, aspiration event, aspiration pneumonitis, CHF, biventricular heart failure, right-sided heart failure, pneumonia Coding Level of Care Code Critical Care >/= 30 minutes Critical care time (in minutes): 45 The high probability of a clinically significant, sudden or life threatening deterioration, as referenced in this documentation, required my full and direct attention, intervention and personal management. The critical care time shown is in addition to time spent performing any reported separately billable procedures and includes the following: [x] Data and vital sign review and interpretation [x ] Patient assessment, examination and intervention [x] Medication orders and management [x] Patient/Family updates as able [x] Care Coordination and Documentation. Diagnoses Acute respiratory failure J96.00 Sepsis A41.9 Sepsis acute organ dysfunction status: unspecified Sepsis type: sepsis due to unspecified organism Congestive heart failure I50.9 Shock R57.9 Pneumonia J18.9 Laterality: unspecified laterality Lung location: unspecified part of lung Pneumonia type: due to unspecified organism Systemic lupus erythematosus (SLE) in adult M32.9 Immunosuppression D89.9 Hyperlipidemia E78.5 NSTEMI (non-ST elevated myocardial infarction) I21.4 Acute respiratory distress syndrome J80 Aspiration pneumonia J69.0 Aspiration pneumonitis J69.0 Ileus K56.7 Ascites R18.8
--- NOTE | 2024-06-14 14:00 | PC.NURSE ---
Patient was transported out of the unit by [facility] at 1359. Patient was stable upon transfer.
--- NOTE | 2024-06-14 14:03 | PC.NURSE ---
[facility] team was sent with 89 mls of propofol and 90 mls of fentanyl for the patient.
--- NOTE | 2024-06-14 14:11 | P.TS_ITS ---
Transfer Summary Providers Date of Admission: 06/06/24 18:39 Date of Discharge/Transfer: 06/14/24 Attending Provider at Admission: Sebastien Diehl MD Attending Provider at Transfer: Sebastien Diehl MD Primary Care Provider: GAY Galeana Transfer Plans: Anticipated date of transfer: 06/14/24 . Diagnoses at Discharge Discharge Diagnosis (1) Acute respiratory failure: Status: Acute (2) Sepsis: Status: Acute Qualifiers: Sepsis acute organ dysfunction status: unspecified Sepsis type: sepsis due to unspecified organism Qualified Code(s): A41.9 - Sepsis, unspecified organism (3) Congestive heart failure: Status: Chronic (4) Shock: Status: Acute (5) Pneumonia: Status: Acute Qualifiers: Laterality: unspecified laterality Lung location: unspecified part of lung Pneumonia type: due to unspecified organism Qualified Code(s): J18.9 - Pneumonia, unspecified organism (6) Systemic lupus erythematosus (SLE) in adult: Status: Chronic (7) Immunosuppression: Status: Acute (8) Hyperlipidemia: Status: Acute (9) NSTEMI (non-ST elevated myocardial infarction): Status: Acute (10) Acute respiratory distress syndrome: Status: Acute (11) Aspiration pneumonia: Status: Acute (12) Aspiration pneumonitis: Status: Acute (13) Ileus: Status: Acute (14) Ascites: Status: Acute Reason for Visit Reason for Visit dr rodriguez, ANUPAMA Hospital Course Hospital Course Alivia Tomlinson is a 64 year old female with a past medical history of COPD, CHF, lupus with immunocompromise state on chronic prednisone, leflunomide, prediabetes, who presents [facility] for shortness of breath. According to patient, she has been short of breath for the last 4 months, she has had progressively increased shortness of breath, shortness of breath with exertion, orthopnea, paroxysmal nocturnal dyspnea, but recently her shortness of breath has significantly progressed that she is short of breath all the time. She tells me that recently she had the flu, then she had another viral in fection, then she had pneumonia she continues to have a productive cough, fatigue, malaise, no fevers, no chills she also reports increased abdominal distention, her blood pressures are soft here, she tells me she has lost weight, denies feeling lightheaded, denies feeling dizzy, does report smoking since she was in her teens, she does report intermittent chest pain, but nothing currently, no stroke history, no history of CAD, no history of stenting Patient was admitted to [facility] for acute respiratory failure secondary to systolic CHF, concerns for possible pneumonia with immu nocompromised state, she was monitored in ICU received IV diuresis, IV antibiotics, required Levophed for diuresis, she did have atrial fibrillation with RVR, requiring amiodarone drip, managed with therapeutic Lovenox, converted to normal sinus rhythm, switched over to p.o. amiodarone, cardiology was consulted, overall clinically improved, remained afebrile, cultures so far no growth, respiratory status improved, plans on coronary angiography June 09, 2024. On June 09, 2024 patient significant aspiration event resulting in aspiration pneumonitis, respiratory failure, progressing to acute respiratory distress syndrome. Over the next few days respiratory status worsened, requiring heated high flow, and BiPAP, but with persistent shortness of breath, she eventually required elective intubation June 12, 2024. She was nonetheless managed with broad-spectrum antibiotic therapy, steroid therapy, acute respiratory distress syndrome protocol, intermittent diuresis, down to 60% on ventilator, remained off pressors, remained afebrile and clinically monitored. Patient was transferred to [facility] for the need for pulmonary, bronchoscopy, and as per family request for higher level of care. Plan Acute hypoxic respiratory failure - Now with acute respiratory distress syndrome, secondary to aspiration event -With acute respiratory distress -With aspiration pneumonia, aspiration pneumonitis, aspiration event -Certainly CHF is playing a role, -Given her immunocompromise state, her recent history of multiple infections, cough -COPD CTA CT/CT angio chest PE protcl [id number] IMPRESSION: 1. Constellation of findings is most compelling for heart failure including severe cardiomegaly, bilateral pleural effusions, distension of the superior and inferior vena cava, and small pericardial effusion. 2. Enlarged pulmonary artery tree is compatible with chronic PA hypertension. No findings of acute pulmonary embolism. 3. Advanced arterial disease. No findings of acute aortic dissection. Additional assessment the aorta is limited by contrast bolus timing and patient motion. There is probably high-grade stenosis at the origin of the left subclavian artery. Moderate stenosis of the proximal common carotid arteries noted. Cardiac echo CONCLUSIONS LV systolic function is moderately reduced with EF of 35-40% RV appears dilated and severely hypokinetic. Left atrial dilation Mild mitral regurgitation Mild tricuspid regurgitation. Trace pericardial effusion No comparison studies are available. CT chest - CT/[place] [id number] IMPRESSION: 1. Bilateral lower lung predominant opacity is progressive since 06/09/2024. Some component of segmental atelectasis is present. Superimposed aspiration or infection cannot be excluded. 2. Marked cardiac enlargement. 3. Bilateral pleural effusions are progressive since 06/09/2024. 4. Anasarca is progressive since 06/09/2024. 5. Incidental findings above. - On 100% BiPAP, with evidence of respiratory distress, PaO2/FiO2 ratio of 66, decision with consent of patient and to electively intubate patient, intubated Plan -Will monitor in ICU - Intubated, sedated mechanical ventilation - Minimize tidal volume, minimize FiO2 - ARDS protocol for ventilator - Continue vancomycin, Zosyn -Solu-Medrol 40 mg IV every 8 hours -Blood cultures -Sputum culture - Appears euvolemic hold off of further Lasix therapy -Started on Levophed to maintain MAP in 65 -PICC line -DuoNeb, budesonide Pulmonary hypertension, with RV appearing to be dilated and severely hypokinetic, with underlying COPD -CT scan shows enlarged pulmonary arteries compatible with chronic PE hypertension - All indicative of pulmonary hypertension, right-sided heart failure, due to underlying COPD Ileus -CT abdomen pelvis shows diffusely distended colon without evidence of high- grade obstruction or wall thickening to indicate inflammation, probable ileus - KUB this morning shows persistent prominent gaseous distention of the bowel, large bowel are dilated up to 9.5 cm - General Surgery consulted - Medical management Moderate ascites, 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 hydrothorax, from congestive hepatopathy Anasarca, bilateral pleural effusions, moderate ascites - Appears euvolemic hold off on Lasix - With moderate ascites will consider paracentesis based on clinical progress - LFTs within normal limits - Ascites could be cardiac in etiology given low EF right-sided heart failure Aspiration pneumonitis -Resulting in respiratory failure -Now progressing to acute respiratory distress syndrome -CT scan abdomen pelvis does not show any evidence of bowel obstruction, but does show ileus -Maamefrnemo Reglan for nausea vomiting -Speech therapy eval -Aspiration precautions Shock, currently off Levophed -Likely cardiogenic shock given EF of 35% -Component of sepsis also difficult to rule out, remains off pressors, blood cultures so far no growth, remains afebrile, lactic acid within normal limits -Will monitor in ICU -Levophed as needed, maintain MAP more than 65 -Is chronically on prednisone, risk of adrenal insufficiency, status post 1 dose hydrocortisone SVT versus atrial fibrillation -Did not respond to 2 doses of atropine, conservative intervention -Amiodarone bolus, amiodarone drip, converted to normal sinus rhythm - Transition to p.o. amiodarone Chest pain complaints, NSTEMI -No active chest pain -EKGs, serial troponins, telemetry monitoring -Aspirin, statin -Cardiac echo CONCLUSIONS LV systolic function is moderately reduced with EF of 35-40% RV appears dilated and severely hypokinetic. Left atrial dilation Mild mitral regurgitation Mild tricuspid regurgitation. Trace pericardial effusion No comparison studies are available. -therapeutic Lovenox - Concern for ischemic cardiomyopathy, had plans on coronary angiography, currently on hold given respiratory failure as above, will likely need in the near future patient clinical progress CHF exacerbation, biventricular heart failure, systolic -Lasix on hold -On Levophed to maintain MAP greater than 65 -Cardiology consulted -Might require pressors to maintain MAP greater than 65 while diuresing -Cardiac echo, as above History of COPD Immunocompromise state with lupus, continue prednisone, hold leflunomide -Potentially lupus could be playing a role in patient's NSTEMI, CHF Prediabetes, low-dose sliding scale 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, moderate stenosis of proximal common carotid arteries Full code Lovenox for DVT prophylaxis Protonix for GI prophylaxis Plan for today Rx protocol, monitor respiratory status closely, IV antibiotics, IV steroids, spoke to Glo's , patient's and step to transfer to [facility], will transfer to [facility] Physical Exam Const: COMMON NORMALS: no acute distress and patient oriented x3 Resp: COMMON NORMALS: normal respiratory effort, No retractions, No use of accessory muscles and clear to auscultation bilaterally AUSCULTATION: clear to auscultation bilaterally Cardio: COMMON NORMALS: regular rate, regular rhythm, S1 normal heart sound present and S2 normal heart sound present RATE: regular rate RHYTHM: regular rhythm HEART SOUNDS: S1 normal heart sound present and S2 normal heart sound present GI: COMMON NORMALS: Normal to inspection, nondistended, normoactive bowel sounds present, Soft to palpation and non-tender PALPATION: Yes Soft to palpation Extremity: COMMON NORMALS: no pedal edema Neuro: COMMON NORMALS: patient oriented x3 Psych: COMMON NORMALS: mental status grossly normal Urinary Catheter Management: Chandler: Cath Placed During This Visit: yes Reason for Continuing Indwelling Catheter: Accurate Measurement of Urinary Output in Critically Ill Patients Urinary Catheter Date of Insertion: 06/07/24 Urinary Catheter Time of Insertion: 12:30 TS Data Studies Completed and Pending Pending at discharge Category Date Time Status 1-3 Beta D Glucan [Fungitell Glucan Assay (Blood)] Lab 06/11/24 10:41 Received Routine Aspergillus AG,EIA,Serum Stat Lab 06/11/24 10:41 Received Pneumocystis PCP [Pneumocystis jiroveci Qual PCR] Lab 06/11/24 08:48 Received Routine Completed Studies During Hospitalization Category Date Time Status CT abdomen pelvis wo con [id number] Routine Cat Scan 06/09/24 09:[address] angio chest PE protcl [id number] Stat Cat Scan 06/06/24 18:[address] [place] [id number] Stat Cat Scan 06/11/24 14:42 Completed CXRP [XR chest 1V portable [id number]] Routine Exams 06/07/24 14:08 Completed XR KUB portable [id number] Routine Exams 06/13/24 09:17 Completed XR chest 1V portable [id number] Routine Exams 06/10/24 07:00 Completed XR chest 1V portable [id number] Routine Exams 06/11/24 08:32 Completed XR chest 1V portable [id number] Routine Exams 06/13/24 07:00 Completed XR chest 1V portable [id number] Stat Exams 06/06/24 14:57 Completed XR chest 1V portable [id number] Stat Exams 06/09/24 00:43 Completed XR chest 1V portable [id number] Stat Exams 06/12/24 08:56 Completed CV. echo complete* [id number] Stat Ultrasound 06/06/24 18:24 Completed Laboratory Last Values WBC 13.18 10^3/uL (3.29-11.43) H 06/14/24 03:33 RBC 4.09 10^6/uL (3.85-5.65) 06/14/24 03:33 Hgb 11.70 g/dL (11.27-16.99) 06/14/24 03:33 Hct 37.2 % (36-47) 06/14/24 03:33 MCV 91.0 fl (85-98) 06/14/24 03:33 MCH 28.6 pg (27-33) 06/14/24 03:33 MCHC 31.5 g/dL (30-55) 06/14/24 03:33 RDW 20.6 % (12.1-15.1) H 06/14/24 03:33 Plt Count 162 10^3/cmm (157-399) 06/14/24 03:33 MPV 9.7 fL (7.4-10.4) 06/14/24 03:33 Neut % (Auto) 89.2 % 06/14/24 03:33 Lymph % (Auto) 3.9 % 06/14/24 03:33 [place] % (Auto) 6.3 % 06/14/24 03:33 Eos % (Auto) 0.0 % 06/14/24 03:33 Baso % (Auto) 0.1 % 06/14/24 03:33 Neut # (Auto) 11.76 10^3/uL (1.8-7.7) H 06/14/24 03:33 Lymph # (Auto) 0.5 10^3/uL (0.8-4.8) L 06/14/24 03:33 [place] # (Auto) 0.8 10^3/uL (0.2-0.9) 06/14/24 03:33 Eos # (Auto) 0.0 10^3/uL (0.0-0.8) 06/14/24 03:33 Baso # (Auto) 0.0 10^3/uL (0.0-0.1) 06/14/24 03:33 Nucleated RBC % (auto) 0 % 06/14/24 03:33 Nucleated RBCs # 0.0 /100WBC 06/14/24 03:33 ESR 1 mm/hr (0-15) 06/11/24 03:51 Haptoglobin 113.0 mg/L (30-200) 06/11/24 03:51 PT 14.40 SECONDS (12.1-14.9) 06/06/24 15:26 INR 1.04 (0.8-1.2) 06/06/24 15:26 APTT 41.0 SECONDS (23.9-36.7) H 06/11/24 10:41 D-Dimer 3.53 ug/mLFEU (0-0.59) H 06/06/24 18:12 Specimen Type Arterial 06/14/24 03:30 Sample Site Brachial, left 06/14/24 03:30 ABG pH 7.48 (7.35-7.45) H 06/14/24 03:30 ABG pCO2 43.6 mmHg (35-45) 06/14/24 03:30 ABG pO2 118.0 mmHg (80.0-100.0) H 06/14/24 03:30 ABG PO2/FiO2 Ratio 196 06/14/24 03:30 ABG HCO3 32.4 mmol/L (22-26) H 06/14/24 03:30 ABG O2 Saturation 98.4 06/13/24 16:25 ABG Base Excess 7.9 mmol/L (-2.0-2.0) H 06/14/24 03:30 Gamal Test Pos 06/14/24 03:30 A-a O2 Gradient 33.9 mmHg (5-10) H 06/13/24 16:25 Hematocrit 37.8 % (37-47) 06/14/24 03:30 Hgb O2 Saturation 96.5 % (95-100) 06/13/24 16:25 Carboxyhemoglobin 0.8 %THgb (0.4-20.1) 06/13/24 16:25 Methemoglobin 1.1 % (0.4-1.5) 06/13/24 16:25 Total Hemoglobin 12.7 g/dL (12-16) 06/13/24 16:25 Sodium 137.0 mmol/L (131-143) 06/13/24 16:25 Potassium 3.9 mmol/L (3.5-5.0) 06/13/24 16:25 Glucose 125.0 mg/dL (70-115) H 06/13/24 16:25 Ionized Calcium 1.2 mmol/L (1.1-1.4) 06/13/24 16:25 O2 Delivery Device Vent 06/14/24 03:30 O2 Liters/Min 15.0 % 06/11/24 01:15 FiO2 60.0 % 06/14/24 03:30 Tidal Volume 0.35 06/14/24 03:30 PEEP 10.0 cmH20 06/14/24 03:30 Glue Jointer Operator ID [email or web address] 06/14/24 03:30 Sodium 138 mmol/L (136-145) 06/14/24 03:33 Potassium 4.4 mmol/L (3.5-5.1) 06/14/24 03:33 Chloride 100 mmol/L (98-107) 06/14/24 03:33 Carbon Dioxide 28 mmol/L (22-29) 06/14/24 03:33 Anion Gap 14.4 (5-19) 06/14/24 03:33 BUN 26 mg/dL (8-23) H 06/14/24 03:33 Creatinine 0.8 mg/dL (0.5-0.9) 06/14/24 03:33 GFR Calculation 71.8 mL/min (90-130) L 06/14/24 03:33 Glucose 116 mg/dL (65-115) H 06/14/24 03:33 POC Glucose 110 mg/dL (70-110) 06/14/24 07:46 Estimat Average Glucose 131 06/06/24 15:26 Hemoglobin A1c 6.2 % (4.0-6.0) H 06/06/24 15:26 Calculated Osmolality 292 mOsm/kg (285-295) 06/14/24 03:33 Lactic Acid 2.1 mmol/L (0.5-2.2) 06/06/24 18:12 Lactic Acid (Sepsis) 1.8 mmol/L (0.5-2.2) 06/06/24 21:49 Lactate 1.3 mmol/L (0.5-2.2) 06/14/24 03:33 Calcium 8.7 mg/dL (8.5-10.5) 06/14/24 03:33 Phosphorus 2.4 mg/dL (2.5-4.5) L 06/14/24 03:33 Magnesium 2.5 mg/dL (1.7-2.3) H 06/14/24 03:33 Total Bilirubin 1.2 mg/dL (0.15-1.2) 06/14/24 03:33 AST 17 U/L (0-32) 06/14/24 03:33 ALT 17 U/L (0-33) 06/14/24 03:33 Alkaline Phosphatase 70 U/L (35-105) 06/14/24 03:33 Lactate Dehydrogenase 213 U/L (135-214) 06/11/24 03:51 Troponin T Baseline 126 ng/L (0-10) H* 06/06/24 18:12 Troponin T 120 Minute 123.3 ng/L (0-10) H 06/06/24 19:48 Delta Troponin T -2.7 ABS# (0-10) L 06/06/24 19:48 Troponin T Hi Sens 6Hr 103.4 ng/L (0-10) H 06/06/24 23:31 Troponin T Hi Sens 6Hr Delta -22.6 ng/L (0-12) L 06/06/24 23:31 C-Reactive Protein 95.7 mg/L (0.0-4.9) H 06/14/24 03:33 NT-Pro-B Natriuret Pep 3971 pg/mL (0-125) H 06/14/24 03:33 Total Protein 6.0 g/dL (6.6-8.7) L 06/14/24 03:33 Albumin 3.2 g/dL (3.5-5.2) L 06/14/24 03:33 Globulin 2.8 g/dL (1.3-4.6) 06/14/24 03:33 Lipase 24 U/L (13-60) 06/09/24 05:37 Procalcitonin 0.09 ng/mL (0-0.5) 06/14/24 03:33 TSH 1.17 uIU/mL (0.27-4.20) 06/06/24 15:26 Urine Color Yellow (Yellow) 06/06/24 19:11 Urine Appearance Clear (CLEAR) 06/06/24 19:11 Urine pH 6 (5-7) 06/06/24 19:11 Ur Specific [place] 1.005 (1.005-1.030) 06/06/24 19:11 Urine Protein Neg (Negative) 06/06/24 19:11 Urine Glucose (UA) Norm (Normal) 06/06/24 19:11 Urine Ketones Negative (Negative) 06/06/24 19:11 Urine Blood Neg (Negative) 06/06/24 19:11 Urine Nitrate Negative (Negative) 06/06/24 19:11 Urine Bilirubin Neg (Negative) 06/06/24 19:11 Urine Urobilinogen Norm mg/dL (Negative) 06/06/24 19:11 Ur Leukocyte Esterase Negative (Negative) 06/06/24 19:11 Amorphous Sediment Not Reportable 06/06/24 19:11 Vancomycin Trough 15.0 ug/mL (10-15) 06/13/24 17:46 Influenza A (PCR) Negative (Negative) 06/12/24 13:45 Influenza Type B (PCR) Negative (Negative) 06/12/24 13:45 RSV (PCR) Negative (Negative) 06/12/24 13:45 SARS-CoV-2 (PCR) Negative (Negative) 06/12/24 13:45 Radiology Impressions Chest CTA 06/06/24 18:23 IMPRESSION: 1. Constellation of findings is most compelling for heart failure including severe cardiomegaly, bilateral pleural effusions, distension of the superior and inferior vena cava, and small pericardial effusion. 2. Enlarged pulmonary artery tree is compatible with chronic PA hypertension. No findings of acute pulmonary embolism. 3. Advanced arterial disease. No findings of acute aortic dissection. Additional assessment the aorta is limited by contrast bolus timing and patient motion. There is probably high-grade stenosis at the origin of the left subclavian artery. Moderate stenosis of the proximal common carotid arteries noted. Abdomen/Pelvis CT 06/09/24 09:19 IMPRESSION: 1. Marked cardiomegaly. Dependent changes at the lung bases. 2. Small amount of ascites with mesenteric edema and some anasarca. 3. No GI tract obstruction. 4. Marked fecal retention and constipation in the colon. 5. Mild increased attenuation in the gallbladder. May be sludge related to fasting state. This can be evaluated by ultrasound. 6. Suspect hepatic venous congestion. Chest/Abdomen/Pelvis CT 06/11/24 14:42 IMPRESSION: 1. Bilateral lower lung predominant opacity is progressive since 06/09/2024. Some component of segmental atelectasis is present. Superimposed aspiration or infection cannot be excluded. 2. Marked cardiac enlargement. 3. Bilateral pleural effusions are progressive since 06/09/2024. 4. Anasarca is progressive since 06/09/2024. 5. Incidental findings above. IMPRESSION: 1. Diffusely distended colon without evidence of high-grade obstruction or wall thickening to indicate inflammation. Probable ileus. 2. Anasarca is progressive since 06/09/2024. 3. Moderate ascites is progressive since 06/09/2024. 4. Incidental findings above. COMMENTS: Consistent with the [employer]'s Incidental Findings Committee white paper (J Am José Antonio Radiol 2018): Any incidental renal lesion less than 1 cm or classified as too small to characterize, or any incidental cystic renal lesion characterized as simple-appearing, is likely benign. No follow-up imaging is recommended for these lesions per consensus recommendations based on imaging criteria. Chest X-Ray 06/13/24 07:00 IMPRESSION: 1. Slight decrease in heart size with slightly less pulmonary vascular congestion noted previously. 2. Bibasal infiltrates showing little change. 3. ET tube, right-sided PICC line and enteric tube all in satisfactory position without change. KUB X-Ray 06/13/24 09:17 IMPRESSION: Persistent prominent gaseous distension of bowel. Loops of large bowel are dilated up to at least 9.5 cm. Recent Clincial Data Last Vital Signs Temp 98.5 F 06/14/24 09:30 Pulse 70 06/14/24 13:30 Resp 23 H 06/14/24 13:17 BP 89/55 06/14/24 13:30 Pulse Ox 97 06/14/24 13:30 O2 Del Method Mechanical Ventilation 06/14/24 13:30 O2 Flow Rate 50 06/11/24 16:00 FiO2 60 06/14/24 13:30 Vital Signs Temp Pulse Resp BP Pulse Ox O2 Del Method FiO2 06/14/24 13:30 70 89/55 97 Mechanical Ventilation 60 06/14/24 13:17 23 H 97 60 06/14/24 13:15 74 88/56 97 06/14/24 13:00 72 88/57 97 06/14/24 12:45 72 89/56 97 06/14/24 12:30 72 90/52 97 06/14/24 12:15 72 90/55 98 06/14/24 12:00 72 90/55 97 06/14/24 11:45 71 90/54 97 06/14/24 11:30 69 91/56 97 06/14/24 11:27 66 06/14/24 11:22 12 97 60 06/14/24 11:18 69 12 98 Mechanical Ventilation 60 06/14/24 11:15 69 87/53 97 06/14/24 11:00 69 92/53 97 06/14/24 10:45 69 92/55 97 06/14/24 10:30 70 92/57 98 06/14/24 10:15 71 91/57 97 06/14/24 10:00 72 91/58 97 Mechanical Ventilation 60 06/14/24 09:58 12 97 60 06/14/24 09:45 76 94/55 97 06/14/24 09:30 98.5 F 72 95/57 98 Mechanical Ventilation 60 06/14/24 09:00 74 103/61 98 06/14/24 08:30 72 96/58 98 06/14/24 08:00 64 109/64 97 06/14/24 07:47 59 L 06/14/24 07:36 12 98 60 06/14/24 07:30 58 L 102/65 98 06/14/24 07:25 60 12 98 Mechanical Ventilation 60 06/14/24 07:19 60 06/14/24 07:00 64 104/64 98 06/14/24 06:30 60 104/66 98 06/14/24 06:00 60 06/14/24 06:00 60 101/66 98 06/14/24 05:30 60 102/63 98 06/14/24 05:00 61 102/64 98 06/14/24 04:30 61 99/58 98 06/14/24 04:00 62 107/62 98 06/14/24 03:30 63 110/66 97 06/14/24 03:07 12 97 60 06/14/24 03:00 63 94/61 97 06/14/24 02:30 63 96/63 97 Intake & Output/Weight 06/12/24 06/13/24 06/14/24 06/15/24 06:59 06:59 06:59 06:59 Intake Total 993.161 / 993.161 821.074 / 821.074 844.117 / 844.117 514.681 / 514.681 Output Total 2350 / 2350 1974 1350 / 1350 100 / 100 Balance -1356.839 / -1356.839 -1153.926 / -1153.926 -505.883 / -505.883 414.681 / 414.681 Weight 54.9 kg 54.9 kg 54.9 kg Vitals Last Vital Signs Temp 98.5 F 06/14/24 09:30 Pulse 70 06/14/24 13:30 Resp 23 H 06/14/24 13:17 BP 89/55 06/14/24 13:30 Pulse Ox 97 06/14/24 13:30 O2 Del Method Mechanical Ventilation 06/14/24 13:30 O2 Flow Rate 50 06/11/24 16:00 FiO2 60 06/14/24 13:30 TS Medications Medications Discontinued Medications Acetaminophen (Acetaminophen 325 Mg Tablet) 650 mg PO Q6H PRN PRN Reason: Mild/Mod Pain Or Temp >/= 101 Last Admin: 06/11/24 00:30 Dose: 650 mg Adenosine (Adenosine 3 Mg/Ml Sdv 2ml) 6 mg IVP ONCE ONE Stop: 06/08/24 12:43 Last Admin: 06/08/24 14:11 Dose: 6 mg Albuterol/Ipratropium (Ipratropium-Albuterol 3 Ml Neb) 3 ml INHALATION ONCE ONE Stop: 06/06/24 17:43 Last Admin: 06/06/24 18:07 Dose: 3 ml Albuterol/Ipratropium (Ipratropium-Albuterol 3 Ml Neb) 3 ml INHALATION QID.RESPIRATORY ZAYRA Last Admin: 06/14/24 11:21 Dose: 3 ml Albuterol/Ipratropium (Ipratropium-Albuterol 3 Ml Neb) 3 ml INHALATION QID.RESPIRATORY ZAYRA Alprazolam (Alprazolam 0.5 Mg Tablet) 0.25 mg PO TID PRN PRN Reason: ANXIETY Last Admin: 06/12/24 03:39 Dose: 0.25 mg Amiodarone HCl (Amiodarone 200 Mg Tablet) 200 mg PO BID ZAYRA Last Admin: 06/14/24 08:31 Dose: 200 mg Aspirin (Aspirin 81 Mg Ec Tablet) 81 mg PO DAILY ZAYRA Last Admin: 06/14/24 08:31 Dose: 81 mg Atorvastatin Calcium (Atorvastatin 40 Mg Tablet) 40 mg PO BEDTIME [facility] [place] Last Admin: 06/13/24 20:45 Dose: 40 mg Bisacodyl (Bisacodyl 5 Mg Tablet) 10 mg PO DAILY [facility] [place] Last Admin: 06/14/24 08:30 Dose: 10 mg Budesonide (Budesonide 0.5 Mg/2 Ml Neb) 0.5 mg INHALATION BID.RESPIRATORY [facility] [place] Last Admin: 06/14/24 07:34 Dose: 0.5 mg Ceftriaxone Sodium (Ceftriaxone 1,000 Mg Sdv) 1,000 mg IVP ONCE ONE; Protocol Stop: 06/06/24 17:43 Last Admin: 06/06/24 18:30 Dose: Not Given Chlorhexidine Gluconate (Chlorhexidine Gluconate 4% Btl 118 Ml) 1 applic TOPICAL DAILY PRN PRN Reason: For Nightly Bath Last Admin: 06/14/24 03:01 Dose: 1 applic Diphenhydramine HCl (Diphenhydramine 50 Mg Capsule) 50 mg PO ONCE ONE Stop: 06/09/24 11:01 Last Admin: 06/09/24 11:25 Dose: Not Given Enoxaparin Sodium (Enoxaparin 60 Mg/0.6 Ml Syringe) 60 mg SUBCUT Q12H [facility] [place] Last Admin: 06/14/24 08:30 Dose: 60 mg Furosemide (Furosemide 10 Mg/Ml Sdv 4ml) 40 mg IVP Q12H [facility] [place] Last Admin: 06/09/24 08:44 Dose: 40 mg Furosemide (Furosemide 10 Mg/Ml Sdv 4ml) 40 mg IVP ONCE ONE Stop: 06/11/24 15:55 Last Admin: 06/11/24 16:39 Dose: 40 mg Furosemide (Furosemide 10 Mg/Ml Sdv 4ml) 40 mg IVP ONCE ONE Stop: 06/12/24 09:36 Last Admin: 06/12/24 11:10 Dose: 40 mg Glucagon (Glucagon 1 Mg/Ml Kit 1 Ml) 1 mg IM ONCE PRN; Protocol PRN Reason: Adult Acute Hypoglycemia Nursing Prot. Heparin Sodium (Porcine) (Heparin 5,000 Unit/Ml Inj 1 Ml) 0 unit IVP PRN PRN; Protocol PRN Reason: Heparin Weight Based Protocol -Subsequent Bolus Last Admin: 06/09/24 15:22 Dose: 1,000 unit Heparin Sodium (Porcine) (Heparin 5,000 Unit/Ml Inj 1 Ml) 0 unit IVP ONCE ONE; Protocol Stop: 06/06/24 20:10 Last Admin: 06/06/24 21:29 Dose: 2,600 unit Hydrocortisone Sodium Succinate (Hydrocortisone 100 Mg/2 Ml Sdv) 100 mg IVP ONCE ONE Stop: 06/06/24 20:10 Last Admin: 06/06/24 21:28 Dose: 100 mg Sodium Chloride (Sodium Chloride 0.9%) 500 mls @ 999 mls/hr IV .Q31M ONE Stop: 06/06/24 18:12 Last Infusion: 06/06/24 20:13 Dose: Infused Azithromycin 500 mg/ Sodium (Chloride) 250 mls @ 250 mls/hr IV ONCE ONE; Pro tocol Stop: 06/06/24 18:41 Last Admin: 06/06/24 18:30 Dose: Not Given Vancomycin HCl 1,000 mg/ (Sodium Chloride) 250 mls @ 250 mls/hr IV ONCE ONE; Protocol Stop: 06/06/24 18:57 Last Infusion: 06/06/24 20:13 Dose: Infused Piperacillin Sod/Tazobactam (Sod 3.375 gm/ Sodium Chloride) 50 mls @ 100 mls/hr IV ONCE ONE; Protocol Stop: 06/06/24 18:27 Last Infusion: 06/06/24 20:13 Dose: Infused Dextrose (D5w) 500 mls @ 0 mls/hr IV ONCE PRN; Protocol PRN Reason: Adult Acute Hypoglycemia Prot Dextrose (D10w) 125 mls @ 750 mls/hr IV PRN PRN; Protocol PRN Reason: Adult Acute Hypoglycemia Nursing Protocol Dextrose (D10w) 250 mls @ 1,000 mls/hr IV PRN PRN; Protocol PRN Reason: Adult Acute Hypoglycemia Nursing Protocol Heparin Sodium/Sodium Chloride (Heparin Drip) 25,000 unit in 500 mls @ 0 mls/hr IV CONT ZAYRA; Protocol Last Admin: 06/11/24 05:10 Dose: 16.03 unit/kg/hr, 16 mls/hr Piperacillin Sod/Tazobactam (Sod 3.375 gm/ Sodium Chloride) 50 mls @ 12.5 mls/hr IV Q8H ZAYRA Last Infusion: 06/14/24 13:14 Dose: Infused Vancomycin HCl 500 mg/ Sodium (Chloride) 100 mls @ 200 mls/hr IV Q12H ZAYRA Last Infusion: 06/07/24 09:07 Dose: Infused Albumin Human (Albumin) 25 g in 100 mls @ 60 mls/hr IV Q12H ZAYRA Last Admin: 06/07/24 09:52 Dose: 60 mls/hr Norepinephrine Bitartrate (Levophed) 4 mg in 250 mls @ 0 mls/hr IV .Q0M ZAYRA; Protocol Last Titration: 06/14/24 14:07 Dose: Infused Vancomycin HCl 500 mg/ Sodium (Chloride) 100 mls @ 200 mls/hr IV Q12H ZAYRA Last Admin: 06/08/24 21:39 Dose: Not Given Sodium Chloride (Sodium Chloride 0.9%) 1,000 mls @ 50 mls/hr IV .Q20H ONE Stop: 06/10/24 06:59 Last Admin: 06/09/24 11:25 Dose: Not Given Amiodarone HCl/Dextrose (Nexterone) Confirm Administered Dose 360 mg in 200 mls @ as directed .ROUTE .STK-MED ONE Stop: 06/08/24 12:53 Amiodarone HCl/Dextrose (Nexterone) Confirm Administered Dose 150 mg in 100 mls @ as directed .ROUTE .STK-MED ONE Stop: 06/08/24 12:55 Amiodarone HCl/Dextrose (Nexterone) 150 mg in 100 mls @ 400 mls/hr IV ONCE ONE Stop: 06/08/24 14:27 Last Infusion: 06/08/24 18:08 Dose: Infused Amiodarone HCl/Dextrose (Nexterone) 360 mg in 200 mls @ 0 mls/hr IV .Q0M ZAYRA; Protocol Last Admin: 06/09/24 18:25 Dose: 0.5 mg/min, 16.67 mls/hr Vancomycin HCl 750 mg/ Sodium (Chloride) 250 mls @ 250 mls/hr IV Q12H ZAYRA Last Admin: 06/11/24 19:35 Dose: Not Given Dexmedetomidine/Sodium Chloride (Precedex) 400 mcg in 100 mls @ 0 mls/hr IV .Q0M ZAYRA; Protocol Last Titration: 06/12/24 18:00 Dose: Infused Vancomycin HCl 500 mg/ Sodium (Chloride) 100 mls @ 200 mls/hr IV Q12H ZAYRA Last Infusion: 06/14/24 14:07 Dose: Infused Fentanyl (Sublimaze) 1,000 mcg in 100 mls @ 0 mls/hr IV .Q0M ZAYRA; Protocol Last Titration: 06/14/24 14:03 Dose: 0 mcg/hr, 0 mls/hr Midazolam HCl (Versed) 100 mg in 100 mls @ 0 mls/hr IV .Q0M ZAYRA; Protocol Last Titration: 06/14/24 14:06 Dose: Infused Etomidate (Amidate) Confirm Administered Dose 10 mls @ as directed .ROUTE .STK- MED ONE Stop: 06/12/24 09:45 Propofol (Diprivan) 1,000 mg in 100 mls @ 0 mls/hr IV .Q0M ZAYRA; Protocol Last Titration: 06/14/24 14:02 Dose: 0 mcg/kg/min, 0 mls/hr Lidocaine HCl 5 ml/ Potassium (Chloride) 105 mls @ 26.25 mls/hr IV ONCE ONE Stop: 06/13/24 18:46 Last Infusion: 06/13/24 19:34 Dose: Infused Insulin Human Lispro (Insulin Lispro 100 Unit/1 Ml) 0 unit SUBCUT TIDWM [facility] [place]; Protocol Last Admin: 06/14/24 11:59 Dose: 2 unit Iohexol (Iohexol 350 Mg/Ml 500 Ml Btl (Per Ml)) 0 ml IV ONCE ONE Stop: 06/06/24 19:19 Last Admin: 06/06/24 19:19 Dose: 81 ml Lactulose (Lactulose Oral Liq 20 Gm/30 Ml Udc) 10 gm PO DAILY PRN PRN Reason: CONSTIPATION Lactulose (Lactulose Oral Liq 20 Gm/30 Ml Udc) 20 gm PO Q12H [facility] [place] Last Admin: 06/12/24 11:00 Dose: 20 gm Lactulose (Lactulose Oral Liq 20 Gm/30 Ml Udc) 40 gm PO ONCE ONE Stop: 06/12/24 00:00 Last Admin: 06/12/24 00:21 Dose: 40 gm Magnesium Lactate (Magnesium Lactate 84 Mg Tablet) 84 mg PO BID [facility] [place] Last Admin: 06/14/24 08:31 Dose: 84 mg Methylprednisolone Sodium Succinate (Methylprednisolone Sod Succ 125 Mg/2 Ml Inj) 125 mg IVP ONCE ONE Stop: 06/06/24 17:43 Last Admin: 06/06/24 18:19 Dose: 125 mg Methylprednisolone Sodium Succinate (Methylprednisolone Sod Succ 125 Mg/2 Ml Inj) 125 mg IVP ONCE ONE Stop: 06/09/24 11:34 Last Admin: 06/09/24 11:47 Dose: 125 mg Methylprednisolone Sodium Succinate (Methylprednisolone Sod Succ 125 Mg/2 Ml Inj) 125 mg IVP ONCE ONE Stop: 06/11/24 08:32 Last Admin: 06/11/24 09:25 Dose: 125 mg Methylprednisolone Sodium Succinate (Methylprednisolone Sod Succ 40 Mg/Ml Inj) 40 mg IVP Q8H [facility] [place] Last Admin: 06/14/24 12:01 Dose: 40 mg Metoclopramide HCl (Metoclopramide 5 Mg/Ml Sdv 2 Ml) 5 mg IVP Q6H PRN PRN Reason: NAUSEA AND VOMITING Midodrine (Midodrine 5 Mg Tablet) 10 mg PO TID [facility] [place] Last Admin: 06/07/24 08:58 Dose: 10 mg Morphine Sulfate (Morphine 4 Mg/Ml Sdv 1 Ml) 2 mg IVP Q4H PRN PRN Reason: SEVERE PAIN Last Admin: 06/12/24 08:26 Dose: 2 mg Ondansetron HCl (Ondansetron 2 Mg/Ml Sdv 2 Ml) 4 mg IVP Q8H PRN PRN Reason: vomiting, or N/V if npo Last Admin: 06/09/24 04:03 Dose: 4 mg Pantoprazole Sodium (Pantoprazole 40 Mg Sdv) 40 mg IVP Q12H [facility] [place] Last Admin: 06/14/24 08:31 Dose: 40 mg Polyethylene Glycol (Polyethylene Glycol 3350 Pkt 17 Gm) 17 gm PO ONCE ONE Stop: 06/08/24 17:11 Last Admin: 06/08/24 18:08 Dose: 17 gm Polyethylene Glycol (Polyethylene Glycol 3350 Pkt 17 Gm) 17 gm PO DAILY [facility] [place] Last Admin: 06/10/24 09:22 Dose: 17 gm Polyethylene Glycol (Polyethylene Glycol 3350 Pkt 17 Gm) 17 gm PO Q12H [facility] [place] Last Admin: 06/13/24 08:45 Dose: 17 gm Prednisone (Prednisone 10 Mg Tablet) 10 mg PO DAILY [facility] [place] Last Admin: 06/13/24 08:45 Dose: 10 mg Prochlorperazine Edisylate (Prochlorperazine 10 Mg/2 Ml Inj) 10 mg IVP ONCE ONE Stop: 06/09/24 05:51 Last Admin: 06/09/24 06:54 Dose: 10 mg Propofol (Propofol 10 Mg/Ml Sdv 20 Ml) Confirm Administered Dose 200 mg .ROUTE .STK-MED ONE Stop: 06/12/24 09:46 Scopolamine (Scopolamine 1 Mg Patch) 1 patch TRANSDERMA ONCE ONE Stop: 06/09/24 14:18 Last Admin: 06/09/24 15:02 Dose: 1 patch Simethicone (Simethicone 80 Mg Chew) 80 mg PO QID PRN PRN Reason: FLATULENCE Last Admin: 06/11/24 14:20 Dose: 80 mg Sodium Chloride (Saline Nasal [place] 44ml Btl) 1 spray NASAL PRN PRN PRN Reason: DRYNESS Last Admin: 06/08/24 16:30 Dose: 1 spray Sodium Phosphate (Fleet Enema 133 Ml Enema) 133 ml [place] ONCE ONE Stop: 06/10/24 08:56 Last Admin: 06/10/24 19:13 Dose: Not Given Sodium Phosphate (Fleet Enema 133 Ml Enema) 133 ml [place] ONCE ONE Stop: 06/11/24 08:32 Last Admin: 06/11/24 09:25 Dose: 133 ml Sodium Phosphate (Fleet Enema 133 Ml Enema) 133 ml [place] ONCE ONE Stop: 06/12/24 00:00 Last Admin: 06/12/24 00:10 Dose: 133 ml Succinylcholine Chloride (Succinylcholine 20 Mg/Ml Sdv 10ml) Confirm Adm inistered Dose 200 mg .ROUTE .STK-MED ONE Stop: 06/12/24 09:45 Allergies No Known Allergies Allergy (Verified 06/06/24 11:01) Home Medications aspirin 81 mg tablet,delayed release 81 mg PO DAILY 02/04/24 [History Confirmed 06/07/24] acyclovir 800 mg tablet 800 mg PO DAILY #30 tabs 04/18/24 [Rx Confirmed 06/07/24] ipratropium 0.5 mg-albuterol 3 mg (2.5 mg base)/3 mL nebulization soln 3 ml inhalation Q6H PRN wheezing #90 mL 04/18/24 [Rx Confirmed 06/07/24] furosemide 20 mg tablet (Lasix) 20 mg PO QAM #30 tabs 05/02/24 [Rx Confirmed 06/07/24] potassium chloride 8 mEq capsule,extended release 8 meq PO DAILY #30 caps 05/02/24 [Rx Confirmed 06/07/24] spironolactone 25 mg tablet 25 mg PO DAILY #30 tabs 05/02/24 [Rx Confirmed 06/07/24] leflunomide 20 mg tablet 20 mg PO DAILY #30 tabs 05/15/24 [Rx Confirmed 06/07/24] prednisone 10 mg tablet 10 mg PO DAILY #90 tabs 05/15/24 [Rx Confirmed 06/07/24] dapagliflozin propanediol 10 mg tablet (Farxiga) 10 mg PO QAM #30 tabs 05/23/24 [Rx Confirmed 06/07/24] Discharge Plan Discharge Patient Disposition: Xfer Other Condition: Stable Prescriptions: No Action prednisone 10 mg tablet 10 mg PO DAILY Qty: 90 1RF leflunomide 20 mg tablet 20 mg PO DAILY Qty: 30 5RF acyclovir 800 mg tablet 800 mg PO DAILY Qty: 30 0RF ipratropium-albuterol 0.5 mg-3 mg(2.5 mg base)/3 mL solution for nebulization 3 ml inhalation Q6H PRN (Reason: wheezing) Qty: 90 2RF spironolactone 25 mg tablet 25 mg PO DAILY Qty: 30 2RF furosemide [Lasix] 20 mg tablet 20 mg PO QAM Qty: 30 2RF potassium chloride 8 mEq capsule, extended release 8 meq PO DAILY Qty: 30 2RF methylprednisolone acetate [Depo-Medrol] 40 mg/mL suspension 40 mg intra-articular ONCE Qty: 1 0RF dapagliflozin propanediol [Farxiga] 10 mg tablet 10 mg PO QAM Qty: 30 2RF aspirin [Aspir-81] 81 mg Tablet,Delayed Release (Dr/Ec) 81 mg PO DAILY Discharge Orders: Discharge Order (Routine); Ordered 06/14/24 Ordered By: Sebastien Diehl Referrals: Albino Mcdaniel FNP-C [Primary Care Provider] - Transfer Attestations Time Spent in Transfer Care: greater than 30 min Quality Metrics Clinical Quality Measures [ No reported AMI, CVA or VTE this stay] Coding Level of Care Code Acute Code for [facility] Fwd Diagnoses Acute respiratory failure J96.00 Sepsis A41.9 Sepsis acute organ dysfunction status: unspecified Sepsis type: sepsis due to unspecified organism Congestive heart failure I50.9 Shock R57.9 Pneumonia J18.9 Laterality: unspecified laterality Lung location: unspecified part of lung Pneumonia type: due to unspecified organism Systemic lupus erythematosus (SLE) in adult M32.9 Immunosuppression D89.9 Hyperlipidemia E78.5 NSTEMI (non-ST elevated myocardial infarction) I21.4 Acute respiratory distress syndrome J80 Aspiration pneumonia J69.0 Aspiration pneumonitis J69.0 Ileus K56.7 Ascites R18.8
--- NOTE | 2024-06-14 14:14 | PC.NURSE ---
Addendum entered by Alondra Skinner RN 06/14/24 14:34: Witnessed waste Original Note: 34.383 mls of versed were waisted by this nurse and witnessed by SARAH Cantu.
[2024-06-14 19:05] LABS: Aspergillus AG,EIA,Serum NOT DETECTED; Aspergillus Galactomannan Inde <0.50
[2024-06-14 20:11] LABS: Glucose Point of Care 142 mg/dL (70-110)
[2024-06-15 09:19] LABS: Fungitell 1-3-B Glucan Assay 46 pg/ml; Interpretation Negative (Negative)
[2024-06-15 16:54] LABS: P. Jirovecii DNA QL PCR Detected (Not Detected); P. Jirovecii DNA QL PCR Source Sputum
== END 2024-06-14 13:59 | disposition short-term general hospital (02) | DRG 871 ==
LOC: ER 18:36 → ICU 18:41
PROVIDERS: Emergency Medicine; Internal Medicine; Admitting Provider Family Medicine; Emergency Provider Physician Assistant; PCP Nurse Practitioner; Visit Provider Family Medicine
DX: A41.9 Sepsis, unspecified organism (principal); I21.4 Non-ST elevation (NSTEMI) myocardial infarction; I50.23 Acute on chronic systolic (congestive) heart failure; J96.01 Acute respiratory failure with hypoxia; J69.0 Pneumonitis due to inhalation of food and vomit; R57.0 Cardiogenic shock; R65.21 Severe sepsis with septic shock; D84.821 Immunodeficiency due to drugs; K56.7 Ileus, unspecified; R18.8 Other ascites; M32.9 Systemic lupus erythematosus, unspecified; T38.0X5A Adverse effect of glucocorticoids and synthetic analogues, initial encounter; E78.00 Pure hypercholesterolemia, unspecified; J44.9 Chronic obstructive pulmonary disease, unspecified; F17.210 Nicotine dependence, cigarettes, uncomplicated; I49.3 Ventricular premature depolarization; R73.03 Prediabetes; F10.21 Alcohol dependence, in remission; F41.1 Generalized anxiety disorder; E55.9 Vitamin D deficiency, unspecified; K21.9 Gastro-esophageal reflux disease without esophagitis; M06.9 Rheumatoid arthritis, unspecified; Z91.128 Patient's intentional underdosing of medication regimen for other reason; Z79.82 Long term (current) use of aspirin; I65.29 Occlusion and stenosis of unspecified carotid artery; I48.91 Unspecified atrial fibrillation; K76.1 Chronic passive congestion of liver; I27.20 Pulmonary hypertension, unspecified
CPT/HCPCS: 36415; 36416; 36573; 36592; 36600; 51702; 71045; 71250; 71275; 74018; 74176; 80048; 80051; 80053; 80202; 81003; 82330; 82803; 82805; 82962; 83010; 83036; 83605; 83615; 83690; 83735; 83880; 84100; 84145; 84443; 84484; 85025; 85378; 85610; 85651; 85730; 86140; 87040; 87070; 87205; 87305; 87449; 87637; 87798; 92610; 93005; 93306; 94002; 94003; 94640; 94660; 94799; 96365; 96367; 96372; 96374; 96375; 96376; 99285; A4222; C1751; J0153; J0283; J0330; J0780; J1644; J1650; J1720; J1815; J1940; J2250; J2270; J2405; J2470; J2543; J2704; J2919; J3010; J3370; J3480; J3490; J7040; J7050; J7512; J7626; J9999; P9046

== ENCOUNTER → 2024-06-27 09:22 | Outpatient (BNVA) | payer MEDICARE, SELFPAY | PROVIDERS: PCP Nurse Practitioner; Visit Provider Nurse Practitioner | DX: E61.1 Iron deficiency (principal); D64.9 Anemia, unspecified | CPT/HCPCS: 80053; 83550; 85025 ==

== ENCOUNTER → 2024-07-03 13:18 | Outpatient (BNVA) | payer MEDICARE, SELFPAY | PROVIDERS: PCP Nurse Practitioner; Visit Provider Internal Medicine Cardiovascular Disease | DX: I50.9 Heart failure, unspecified (principal); D64.9 Anemia, unspecified; J44.9 Chronic obstructive pulmonary disease, unspecified; Z87.891 Personal history of nicotine dependence; I48.91 Unspecified atrial fibrillation | CPT/HCPCS: 99204 ==

== ENCOUNTER 2024-07-10 15:19 | Outpatient (CLI) | payer MEDICARE, SELFPAY | END 2024-07-10 15:20 | disposition home or self-care (01) | LOC: SLEEP 15:21 | PROVIDERS: PCP Nurse Practitioner; Visit Provider Nurse Practitioner | DX: J44.9 Chronic obstructive pulmonary disease, unspecified (principal) | CPT/HCPCS: 94762 ==

== ENCOUNTER → 2024-07-12 15:02 | Outpatient (BNVA) | payer MEDICARE, SELFPAY | PROVIDERS: PCP Nurse Practitioner; Visit Provider Nurse Practitioner | DX: F41.1 Generalized anxiety disorder (principal) | CPT/HCPCS: 84439; 84443; 84481; 85025 ==

== ENCOUNTER → 2024-07-17 14:04 | Outpatient (BNVA) | payer MEDICARE, SELFPAY | PROVIDERS: PCP Nurse Practitioner; Visit Provider Nurse Practitioner | DX: D89.9 Disorder involving the immune mechanism, unspecified (principal) | CPT/HCPCS: 85025 ==

== ENCOUNTER → 2024-07-26 13:36 | Outpatient (BNVA) | payer MEDICARE, SELFPAY | PROVIDERS: PCP Nurse Practitioner; Visit Provider Internal Medicine Rheumatology | DX: M06.9 Rheumatoid arthritis, unspecified (principal); Z79.899 Other long term (current) drug therapy | CPT/HCPCS: 80076; 82565; 85025; 85651; 86140 ==

== ENCOUNTER → 2024-08-29 09:13 | Outpatient (BNVA) | payer MEDICARE, SELFPAY | PROVIDERS: PCP Nurse Practitioner; Visit Provider Internal Medicine Rheumatology | DX: M06.041 Rheumatoid arthritis without rheumatoid factor, right hand (principal); M06.042 Rheumatoid arthritis without rheumatoid factor, left hand; I50.9 Heart failure, unspecified; L93.2 Other local lupus erythematosus; Z79.899 Other long term (current) drug therapy | CPT/HCPCS: 99214 ==

== ENCOUNTER → 2024-09-28 09:23 | Outpatient (BNVA) | payer MEDICARE, SELFPAY | PROVIDERS: PCP Nurse Practitioner; Visit Provider Student in an Organized Health Care Education/Training Program | DX: Z12.11 Encounter for screening for malignant neoplasm of colon (principal) | CPT/HCPCS: 99024; 99204 ==

== ENCOUNTER → 2024-10-19 14:09 | Outpatient (BNVA) | payer MEDICARE, SELFPAY | PROVIDERS: PCP Nurse Practitioner; Visit Provider Internal Medicine Cardiovascular Disease | DX: I51.9 Heart disease, unspecified (principal); I42.9 Cardiomyopathy, unspecified; D64.9 Anemia, unspecified; I48.91 Unspecified atrial fibrillation; F17.210 Nicotine dependence, cigarettes, uncomplicated; I10 Essential (primary) hypertension; R58 Hemorrhage, not elsewhere classified | CPT/HCPCS: 99214 ==

== ENCOUNTER 2024-11-20 05:59 | Outpatient (CLI) | payer MEDICARE, SELFPAY ==
[2024-11-20] VITALS (19 sets, daily range): BP systolic 114–154; BP diastolic 59–115; PULSE 82–96; RESP 15–27; TEMP 36.7; O2SAT 92–96; BMI 18.3
--- NOTE | 2024-11-20 06:13 | XACV_ITS ---
Exam Room: 2 Ht: 163 cm Wt: 49 kg BSA: 1.47 m2 Gender: Female : 1960 Any Known Allergies: No known allergies Exam Priority: Routine Procedure(s): Procedure Description: Diagnostic procedure Procedure Description: Peripheral Cath Diagnostic Procedure Procedure Description: Subclavian Angiography Procedure Description: Coronary Angiography JORDONEtelvina, Melendez; Diagnostic Cath Status: Elective Diagnostic Findings * Left Main has no disease. * Proximal Left Anterior Descending to Mid Left Anterior Descending: minimal 30% stenosis, HANNA: 3 flow. * Distal Left Anterior Descending to 3rd Right posterolateral collaterallization. * Distal Right Coronary Artery to Right Posterior AV: total occlusion, HANNA: 0 flow. * Proximal Circumflex: subtotal occlusion, HANNA: 2 flow. * Distal Circumflex to AV groove continuation of Circumflex Artery collaterallization. * Coronary angiography shows right dominance. Conclusions Indication: Ordered LV dysfunctionLeft main: No significant disease LAD has mid 20 to 30% stenosis small caliber but long vessel without significant stenosis, diagonal branch has luminal irregularity without significant stenosis Left circumflex is nondominant small caliber main 99% subtotally occluded RCA: Luminal irregularity in the proximal to mid segment, it is 100% occluded in the distal segment fills with [id number] collaterals. There is total occlusion coronary artery disease with three vessel disease. Recommendations Continue current medical management and risk factor modification. Optimal medical management for LV dysfunction and heart failure. Pressures Phase:Rest AO : 149 / 71 ( 98 ) @ 9:53:00 AM 125 / 65 ( 91 ) @ 9:59:00 AM Hemodynamic Data Phase:Rest AO : 149.0 / 71.0 ( 98.0 ) @ 9:53:00 AM 125.0 / 65.0 ( 91.0 ) @ 9:59:00 AM Clinical Evaluation EBL: 5mL-10mL Procedural Details Procedure Consent Obtained. Pre-Procedure Time Out. Identified patient by full name and date of as verbalized by the patient/guarantor. Does the consent match the physician's order: Yes. Accurate & Complete Informed Consent: Yes. Inpatient/Outpatient History & Physical on Chart: Yes. If H&P is completed, is and addenduem needed: No. Relevant Radiology Images available: Yes. The risks, benefits, and alternatives of sedation and/or procedure were discussed by physician. The patient agrees to continue. Procedure started. [facility] Clinical Fraility Score: 3: Managing Well. Md Senior Research Scientist Indications: Other/Heart failure. Chest Pain Symptom Assessment: Atypical Angina. Cardiovascular Instability: No. Correct patient, site and procedure confirmed by cath team. PERRLA. Strong, equal hand fbi profiler bilaterally. Lungs clear x 5 lobes. IV Site on Arrival: 20 gauge in the right forearm. IV Fluids: 0.9% NaCl at KVO. 0 mL infused prior to slab polisher. Pre Procedural Pulses: bilateral posterior tibial was Doppled. Pre Procedural Pulses: bilateral dorsalis pedis was 1+. Pre Procedural Pulses: bilateral radial was 1+. Oxygen started at 2liters/min via nasal canula. right groin was prepped with chloroprep then draped in the usual sterile fashion. right radial was prepped with chloroprep then draped in the usual sterile fashion. Physician notified. Baseline sample Acquired. HR: 77 BPM. Patient's family in CPRU room #2. Dr. Melendez will update at the completion of the procedure. Equipment: 6F - Radial. Cardiac Cath Pack. ACIST Manifold Kit Model BT 2000. Heparinized Saline (2 units/mL), 1000 mL bag. Physician arrived. Physician scrubbed in. Immediate Pre-Procedure Time Out. Correct Patient: Yes; Correct Procedure: Yes; Correct Site: Yes; Correct Patient Position: Yes; Correct Supplies: Yes; Dried Flammable Prep: Yes; Blood Products Available: N/A;. Lidocaine 1% infiltrated to the right radial. Arterial access obtained. A 5 citizen [place] TIG catheter in over the exchange J wire. Hand injection performed through the catheter of the right subclavian. 0.035 x 260cm stiff angled glidewire in through the catheter. Glidewire out. Multiple views taken of left coronary artery. Catheter redirected to the RCA. Multiple views taken of right coronary artery. Catheter removed over the exchange J wire. A 5 citizen [place] Angled Pig catheter in over the exchange J wire. Catheter removed over the exchange J wire. Physician scrubbed out. A TR Band was successful obtaining hemostatsis at the Right Radial artery insertion site. Post Procedure: Pulses reassessed and unchanged. PERRLA. Strong, equal hand fbi profiler bilaterally. No VTE prophylaxis required. Medication's Wasted: Lidocaine 1% = 18 mL. Medication's Wasted: Nitro = 49.8 mg. Medication's Wasted: Heparin = 1000 units. Medication's Wasted: Other = Fentanyl 25 mcg. Total IV fluids: 25 mL. Post-op diagnosis: Non-obstructive CAD. Complications: none. Estimated blood loss: 5mL-10mL. Responsiveness - Normal response to verbal stimuli; alert and oriented, PERRLA. Airway - Unaffected, no intervention required; spontaneous ventilation. Circulation: W/N/L, pulses unchanged. Nausea/Vomiting: No. Procedure completed. Patient transferred by bed to CPRU. Vital chart was stopped. Access Site Site: Right Radial artery Sheath Size: 6 Fr Hemostasis Method: TR Band Hemostasis Success: Successful Procedure Medications Start: 8:39 AM Stop: 8:39 AM Medication: Versed Amount: 1 mg Route: I.V. Start: 8:39 AM Stop: 8:39 AM Medication: Fentanyl Amount: 25 mcg Route: I.V. Start: 8:44 AM Stop: 8:44 AM Medication: Versed Amount: 1 mg Route: I.V. Start: 8:45 AM Stop: 8:45 AM Medication: Fentanyl Amount: 25 mcg Route: I.V. Start: 8:46 AM Stop: 8:46 AM Medication: Nitrogylcerin Amount: 200 mcg Route: I.A. Start: 8:49 AM Stop: 8:49 AM Medication: Fentanyl Amount: 25 mcg Route: I.V. Start: 8:53 AM Stop: 8:53 AM Medication: Heparin Amount: 5000 units Route: I.V. I, the attending physician, have reviewed and verified all procedure medications. Yes, all medications given per verbal order History/Risk Factors Hypertension: No Dyslipidemia: No Peripheral Arterial Disease (PAD): No Myocardial Infarction (AL): No Obesity: No Renal Disease: No Tobacco Use: Current/Recent(w/in 1 year) Prior Interventions PCI: No CABG: No Valve Surgery: No Report Signatures Finalized by Davide Melendez MD on 12/24/2024 10:48 PM
[2024-11-20 06:41] LABS: Hematocrit 48.7 % (36-47); Hemoglobin 15.10 g/dL (11.27-16.99); Mean Corpuscular HGB Conc 31.0 g/dL (30-55); Mean Corpuscular Hemoglobin 28.2 pg (27-33); Mean Corpuscular Volume 91.0 fl (85-98); Nucleated Red Blood Cells % 0 %; Platelet Count 259 10^3/cmm (157-399); Red Blood Count 5.35 10^6/uL (3.85-5.65); White Blood Count 8.75 10^3/uL (3.29-11.43)
[2024-11-20 06:52] LABS: Blood Urea Nitrogen 23 mg/dL (8-23); Calcium 9.8 mg/dL (8.5-10.5); Carbon Dioxide 26 mmol/L (22-29); Chloride 104 mmol/L (98-107); Glucose 92 mg/dL (65-115); Osmolality Calculated 295 mOsm/kg (285-295); Sodium 141 mmol/L (136-145)
[2024-11-20 06:54] LABS: Anion Gap 16.1 (5-19); Potassium 5.1 mmol/L (3.5-5.1)
--- NOTE | 2024-11-20 07:37 | P.HP_ITS ---
Same Day Surgery H&P Indication for Procedure/HPI DATE OF PROCEDURE: November 20, 2024 CHIEF COMPLAINT/INDICATIONFOR SURGICAL PROCEDURE: New onset of heart failure/severe LV dysfunction/NSTEMI PREOP DIAGNOSIS: As above PLANNED PROCEDURE: Operation Date: 11/20/24 07:00 Proposed Procedures p Cardiac Catheterization - [facility] w/wo LV & Coros(Left) - Davide Melendez MD This patient was admitted to the hospital last month she was intubated in respiratory distress with multiorgan failure. She was noted to have severely depressed ejection fraction 30 to 40% which was new. Due to underlying comorbidities and conditions it was thought that patient will be undergoing left heart catheterization as an outpatient. It is the reason patient is here today. Medications/Allergies* Home Medications ?Medication ?Instructions ?Recorded ?Confirmed ?Type tiotropium bromide 18 mcg capsule 1 cap inhalation HEBER LY 06/30/24 11/20/24 History with inhalation device (Spiriva with HandiHaler) ferrous sulfate 325 mg (65 mg 325 mg PO DAILY 07/03/24 11/20/24 History iron) tablet acyclovir 200 mg capsule 200 mg PO DAILY PRN Herpes O utbreak 11/20/24 11/20/24 History hydroxychloroquine 200 mg tablet 200 mg PO BID 5 11/20/24 History Allergies/Adverse Reactions Allergy/AdvReac Type Severity Reaction Status Date / Time No Known Allergies Allergy Verified 11/01/24 16:17 Current Medications: Generic Name Dose Route Start Last Admin Trade Name Freq PRN Reason Stop Dose Admin Sodium Chloride 1,000 mls @ 50 mls/hr 11/20/24 06:19 11/20/24 07:01 Sodium Chloride 0.9% IV 11/21/24 02:18 Not Given .Q20H ONE Pertinent History/Comorbid Conditions* Medical History (Updated 11/09/24 @ 10:56 by Davide Melendez MD) Cardiomyopathy Constipation, slow transit COPD (chronic obstructive pulmonary disease) Cutaneous lupus erythematosus Seronegative rheumatoid arthritis of both hands Suppression of immune system subtherapeutic Macrocytosis Immunization counseling Muscle weakness (generalized) Gastro-esophageal reflux disease without esophagitis Vitamin D deficiency High risk medication use Osteoarthritis Generalized anxiety disorder Chronic pruritus Colon cancer screening declined Systemic lupus erythematosus, unspecified 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, 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 Immunosuppression Systemic lupus erythematosus (SLE) in adult Surgical History (Updated 07/03/20 @ 21:41 by GAY Galeana) History of ectopic Family History (Updated 03/20/19 @ 17:14 by Magy Espinosa LPN, RT) Mother, age 32 CAD (coronary artery disease) Mother Cancer Family/Other Social History Smoking and tobacco/nicotine status: current every day tobacco/nicotine user cigarettes Packs smoked per day: 1 Years cigarettes smoked: 50 Second hand smoke exposure: No Alcohol intake: current Alcohol intake frequency: few times a week Substance/Drug Use: unknown Adopted: No Caregiver/support person: No Lives independently: Yes Household members: spouse Housing: House Marital status: Number of children: 3 Number of grandchildren: 7 service: No Current occupational status: disabled Previous occupational history: [employer] Do you think of yourself as: Straight/Heterosexual Current gender identity: Female Pertinent Exam Findings alert, oriented x 3, clear to auscultation bilaterally, regular rate & rhythm, operative site marked and procedure specific exam findings Conscious Sedation Assessment PATIENT ASSESSED PRIOR TO SEDATION, WITH NO CHANGE NOTED: Yes AIRWAY EVAL/ANESTHESIA PLAN: ASA II, Risks, benefits & alternatives of sedation and/or procedure discussed and Patient agrees to continue as planned ADDITIONAL INFORMATION: All risk-benefit and alternative for the procedure has been explained to the patient. Patient is 22% risk of stroke major bleed. Patient is stent 5% risk of minor bleeding oozing infection hematoma contrast-induced nephropathy urgent or emergent vascular or bypass surgery. Patient would like to proceed with it Recommendations Other Coding Level of Care Code Acute Code for Chg Fwd
--- NOTE | 2024-11-20 09:20 | PC.NURSE ---
Pt arrived to CPRU 2 for post cath recovery. Pt drowsy and oriented X 3, arouses easily to verbal stimuli. Breathing even and non-labored on 2L nasal cannula. Denies pain. TR band in place to right radial . Site asymptomatic, no signs of bleeding or hematoma. Radial pulse palpable. Pt placed on bedside court recording monitor. Family members at bedside.
--- NOTE | 2024-11-20 13:45 | PC.NURSE ---
TR band removal Started releasing air from Right radial TR removal band at 1020. 1 -2ml air released every 5-15min until band deflated. Band deflated at 1215. Right radial site asymptomatic. Site dressed with large Band aid. No signs of bleeding or hematoma.
== END 2024-11-20 13:35 | disposition home or self-care (01) ==
PROVIDERS: PCP Nurse Practitioner; Visit Provider Internal Medicine Cardiovascular Disease
DX: I25.10 Atherosclerotic heart disease of native coronary artery without angina pectoris (principal); I25.82 Chronic total occlusion of coronary artery; J44.9 Chronic obstructive pulmonary disease, unspecified; K21.9 Gastro-esophageal reflux disease without esophagitis; F41.9 Anxiety disorder, unspecified; F17.210 Nicotine dependence, cigarettes, uncomplicated
CPT/HCPCS: 36415; 80048; 85025; 93458; 99152; 99153; C1769; C1887; C1894; J1644; J2250; J3010; J3490; J7030; J9999; Q0163; Q9967

== ENCOUNTER → 2024-11-30 14:35 | Outpatient (BNVA) | payer MEDICARE, SELFPAY | PROVIDERS: PCP Nurse Practitioner; Visit Provider Nurse Practitioner | DX: I50.9 Heart failure, unspecified (principal) | CPT/HCPCS: 83880 ==

== ENCOUNTER → 2024-12-18 12:19 | Outpatient (BNVA) | payer MEDICARE, SELFPAY | PROVIDERS: PCP Nurse Practitioner; Visit Provider Nurse Practitioner | DX: I10 Essential (primary) hypertension (principal); E78.5 Hyperlipidemia, unspecified; E55.9 Vitamin D deficiency, unspecified | CPT/HCPCS: 80053; 80061; 82306; 82607; 84439; 84443; 84481; 85025 ==

== ENCOUNTER → 2024-12-28 12:52 | Outpatient (BNVA) | payer MEDICARE, SELFPAY | PROVIDERS: PCP Nurse Practitioner; Visit Provider Internal Medicine Cardiovascular Disease | DX: I42.9 Cardiomyopathy, unspecified (principal); I10 Essential (primary) hypertension; E78.5 Hyperlipidemia, unspecified; I25.10 Atherosclerotic heart disease of native coronary artery without angina pectoris; Z95.811 Presence of heart assist device; F17.210 Nicotine dependence, cigarettes, uncomplicated | CPT/HCPCS: 99214 ==

== ENCOUNTER 2025-01-03 11:04 | Outpatient (CLI) | payer MEDICARE, SELFPAY ==
--- NOTE | 2025-01-03 11:00 | MR_ITS ---
WS: [id number] MRI HEAD WITHOUT CONTRAST TECHNIQUE: Sagittal T1, T2 axial, T2 axial FLAIR, axial and coronal T1 images, axial susceptibility weighted imaging, axial diffusion weighted images, and coronal T2 images were obtained. CLINICAL INFORMATION: R41.3 - Other amnesia COMPARISON: None. FINDINGS: No evidence of restricted diffusion to suggest acute ischemia. Ventricular system and basilar cisterns are patent. Mild small vessel changes. Mild parenchymal volume loss. Normal posterior fossa. Normal vascular flow voids at the skull base. No extra-axial fluid collections. Paranasal sinuses and mastoid air cells are well aerated. No hemosiderin on susceptibility-weighted images. Normal optic chiasm and pituitary infundibulum. Temporal lobes and hippocampal formations are normal in appearance. MR/MR head wo con* [id number] IMPRESSION: 1. No evidence of restricted diffusion to suggest acute ischemia. 2. Mild small vessel changes with mild parenchymal volume loss. 3. No hemosiderin on the susceptibly weighted images. 4. Temporal lobes and hippocampal formations are normal in appearance.
== END 2025-01-03 11:05 | disposition home or self-care (01) ==
PROVIDERS: PCP Nurse Practitioner; Visit Provider Nurse Practitioner
DX: R41.3 Other amnesia (principal); I67.89 Other cerebrovascular disease
CPT/HCPCS: 70551

== ENCOUNTER 2025-01-31 09:54 | Outpatient (CLI) | payer MEDICARE, SELFPAY ==
--- NOTE | 2025-01-31 15:45 | USCV_ITS ---
Alivia Tomlinson Age: 64 Gender: F : 1960 Exam Date: 01/31/2025 10:16 Ordering Phys: Davide Melendez MD ([email or web address]) Technologist: [place] [facility] [place]: ef chf BP: 110 / 70 HR: Rhythm: Sinus Technical Quality: MEASUREMENTS (Male / Female) Normal Values 2D ECHO LV Diastolic Diameter PLAX 4.6 cm 4.2 - 5.9 / 3.9 - 5.3 cm IVS Diastolic Thickness 1.4 cm 0.6 - 1.0 / 0.6 - 0.9 cm IVS Systolic Thickness 2.0 cm LVPW Diastolic Thickness 1.0 cm 0.6 - 1.0 / 0.6 - 0.9 cm LVPW Systolic Thickness 1.2 cm LVOT Diameter 1.6 cm LV Ejection Fraction 2D Teich 32.6 % LV Ejection Fraction MOD 4C 58.9 % LV Ejection Fraction MOD 2C 57.4 % LV Ejection Fraction 2C AL 58.5 % LA Diameter 3.9 cm RA Systolic Volume 4C AL 61.3 ml RA Systolic Volume 4C MOD 59.0 ml IVC Diameter 1.5 cm M-MODE LA Ao Ratio MM 1.2 AV Cusp Separation MM 1.8 cm FINDINGS Left Ventricle Normal left ventricular cavity size. Left ventricular ejection fraction is estimated at 55 %. Flattened septum in diastole consistent with right ventricle volume overload. Flattened septum in systole consistent with right ventricle pressure overload. Right Ventricle Moderately increased right ventricular size. Mildly decreased right ventricular systolic function. Right Atrium Moderately increased right atrial size. Left Atrium Moderately increased left atrial size. IA Septum Mitral Valve Aortic Valve Tricuspid Valve Pulmonic Valve Pericardium Aorta IVC CONCLUSIONS Normal left ventricular cavity size. Left ventricular ejection fraction is estimated at 55 %. Flattened septum in diastole consistent with right ventricle volume overload. Flattened septum in systole consistent with right ventricle pressure overload. Moderately increased right ventricular size. Mildly decreased right ventricular systolic function. Moderate biatrial enlargment There is no pericardial effusion. Right atrial pressure is around 5 mm of mercury. Davide Melendez MD (Electronically Signed) Final Date: 04 February 2025 08:15 S
== END 2025-01-31 09:55 | disposition home or self-care (01) ==
LOC: RAD 09:56
PROVIDERS: PCP Nurse Practitioner; Visit Provider Internal Medicine Cardiovascular Disease
DX: I50.1 Left ventricular failure, unspecified (principal); I51.7 Cardiomegaly
CPT/HCPCS: 93308